=== PATIENT | female | born 1960 | race Caucasian/White ===

== ENCOUNTER → 2017-01-22 | Outpatient (REF) | payer BC ==
[2017-01-22 13:23] LABS: MEAN CORPUSCULAR HGB CONC 33.3 g/dl (32.0-36.5); RED CELL DISTRIBUTION WIDTH 11.8 % (11.5-14.5); WHITE BLOOD COUNT 5.6 K/mm3 (4.0-10.0)
[2017-01-22 14:14] LABS: ALBUMIN/GLOBULIN RATIO 1.18 (1.00-1.93); ALKALINE PHOSPHATASE 69 U/L (45-117); ALT/SGPT 21 U/L (12-78); ANION GAP 6 MEQ/L (8-16); AST/SGOT 14 U/L (15-37); BILIRUBIN,TOTAL 0.7 MG/DL (0.2-1.0); BLOOD UREA NITROGEN 17 MG/DL (7-18); CALCIUM LEVEL 9.2 MG/DL (8.5-10.1); CARBON DIOXIDE LEVEL 30 MEQ/L (21-32); CHLORIDE LEVEL 103 MEQ/L (98-107); CHOLESTEROL LEVEL 221 MG/DL (<200); CREATININE FOR GFR 0.82 MG/DL (0.55-1.02); FERRITIN 47 NG/ML (8-252); FREE T4 1.04 NG/DL (0.76-1.46); GLOMERULAR FILTRATION RATE > 60.0 (>51); GLUCOSE, FASTING 89 MG/DL (70-105); POTASSIUM SERUM 4.1 MEQ/L (3.5-5.1); SODIUM LEVEL 139 MEQ/L (136-145); TOTAL PROTEIN 7.4 GM/DL (6.4-8.2); TRIGLYCERIDES LEVEL 51 MG/DL (<150)
[2017-01-24 00:07] LABS: Lyme Disease IgG/IgM Antibodie <0.91 ISR (0.00-0.90); Lyme Disease IgM Ab Quantitati <0.80 index (0.00-0.79)
== END ==
LOC: M SFHCCLAY 09:42
PROVIDERS: ATTEND Family Medicine
DX: D50.9 Iron deficiency anemia, unspecified (principal); Z00.00 Encounter for general adult medical examination without abnormal findings; R53.83 Other fatigue

== ENCOUNTER → 2017-11-08 | Outpatient (CLI) | payer BC | LOC: M WUC 15:22 | DX: R06.02 Shortness of breath (principal); R91.8 Other nonspecific abnormal finding of lung field | CPT/HCPCS: 71046 ==

== ENCOUNTER → 2017-11-18 | Outpatient (CLI) | payer BC ==
[~2017-11-18] MED LIST: ISOVUE-370 76% 100ML VIAL (Q9967) As Ordered
== END ==
LOC: M RAD 15:54
DX: R06.02 Shortness of breath (principal)
CPT/HCPCS: Q9967

== ENCOUNTER → 2019-05-23 | Outpatient (CLI) | payer BC ==
--- NOTE | 2019-05-25 09:48 | SLEEPHOME ---
DATE OF STUDY: 05/23/2019 ORDERED BY: Michelle Nicole Diagnostic home sleep testing was performed due to concern for the obstructive sleep apnea syndrome in this patient with a history of snoring. For testing, a nocturnal T3 respiratory monitoring device was used. Continuous record was made of pulse, oxygen saturation, airflow, chest and abdominal strain and body position. 9 hours and 59 minutes of data were reviewed. There were 7 hours and 14 minutes marked as time in bed. During the interval marked time in bed, there were 76 respiratory events identified of 10 seconds in duration or greater for a respiratory event index of 10.5. The events were primarily obstructive hypopneas. Baseline pulse rate 76, pulse rate ranged 65-94. Baseline saturation 92%, saturations fell to 86%. Testing was performed in both the supine and nonsupine positions. IMPRESSION: Abnormal home sleep testing with repetitive respiratory events and oxygen desaturations to 86% with a respiratory event index of 10.5 is consistent with the obstructive sleep apnea syndrome. RECOMMENDATION: The patient should be encouraged to undergo formal sleep evaluation.
== END ==
LOC: M SLEEP HO 11:38
PROVIDERS: ATTEND Nurse Practitioner Family
DX: R06.83 Snoring (principal); G47.9 Sleep disorder, unspecified

== ENCOUNTER → 2019-08-08 | Outpatient (CLI) | payer BC | LOC: M LAB 08:24 | PROVIDERS: ATTEND Surgery | DX: R73.03 Prediabetes (principal) ==

== ENCOUNTER → 2020-01-10 | Outpatient (REF) | payer BC ==
[2020-01-10 18:00] LABS: BASO % 0.5 % (0.0-1.0); EOS # 0.3 10^3/uL (0.0-0.5); EOS % 4.5 % (0.0-3.0); HEMATOCRIT 37.8 % (36.0-47.0); HEMOGLOBIN 12.7 g/dl (12.0-15.5); LYMPH # 2.3 10^3/uL (1.5-5.0); LYMPH % 35.8 % (24.0-44.0); MEAN CORPUSCULAR HEMOGLOBIN 34.1 pg (27.0-33.0); MEAN CORPUSCULAR HGB CONC 33.6 g/dl (32.0-36.5); MEAN CORPUSCULAR VOLUME 101.6 fl (80.0-96.0); MONO # 0.5 10^3/uL (0.0-0.8); MONO % 7.1 % (0.0-5.0); NEUTROPHILS # 3.4 10^3/uL (1.5-8.5); NEUTROPHILS % 51.9 % (36.0-66.0); PLATELET COUNT, AUTOMATED 226 10^3/uL (150-450); RED BLOOD COUNT 3.72 10^6/uL (4.00-5.40); WHITE BLOOD COUNT 6.5 10^3/uL (4.0-10.0)
[2020-01-10 18:21] LABS: ALBUMIN 3.8 GM/DL (3.2-5.2); ALT/SGPT 28 U/L (12-78); BILIRUBIN,TOTAL 0.4 MG/DL (0.2-1.0); BLOOD UREA NITROGEN 14 MG/DL (7-18); CALCIUM LEVEL 9.3 MG/DL (8.5-10.1); CARBON DIOXIDE LEVEL 30 MEQ/L (21-32); CHLORIDE LEVEL 104 MEQ/L (98-107); CREATININE FOR GFR 0.85 MG/DL (0.55-1.30); GLOMERULAR FILTRATION RATE > 60.0 (>51); GLUCOSE, FASTING 91 MG/DL (70-100); MAGNESIUM LEVEL 2.1 MG/DL (1.8-2.4); PHOSPHORUS LEVEL 3.4 MG/DL (2.5-4.9); POTASSIUM SERUM 4.2 MEQ/L (3.5-5.1); RHEUMATOID FACTOR QUANT < 10.0 IU/ML (<15.0); SODIUM LEVEL 138 MEQ/L (136-145)
[2020-01-10 18:28] LABS: APPEARANCE, URINE CLEAR (CLEAR); BACTERIA, URINE AUTO 2+ (NEGATIVE); BILIRUBIN, URINE AUTO NEGATIVE (NEGATIVE); BLOOD, URINE BLOOD 1+ (NEGATIVE); COLOR, URINE YELLOW (YELLOW); GLUCOSE, URINE (UA) AUTO NEGATIVE (NEGATIVE); KETONE, URINE AUTO NEGATIVE (NEGATIVE); LEUKOCYTE ESTERASE, URINE AUTO NEGATIVE (NEGATIVE); MUCUS, URINE SMALL (NEGATIVE); NITRITE, URINE AUTO NEGATIVE (NEGATIVE); PROTEIN, URINE AUTO NEGATIVE (NEGATIVE); RBC, URINE AUTO 1 /HPF (0-3); SPECIFIC GRAVITY URINE AUTO 1.011 (1.002-1.035); SQUAMOUS EPITHELIAL CELL UR AU 1 /HPF (0-6); UROBILINOGEN, URINE AUTO 0.2 mg/dL (0.0-2.0); WBC, URINE AUTO 0 /HPF (0-3)
[2020-01-10 18:31] LABS: ERYTHROCYTE SEDIMENTATION RATE 18 mm/hr (0-30)
[2020-01-12 14:08] LABS: ANTINUCLEAR ANTIBODIES DIRECT Negative (Negative)
== END ==
LOC: M LABDRAWC 16:41
PROVIDERS: ATTEND Internal Medicine
DX: R10.9 Unspecified abdominal pain (principal)

== ENCOUNTER → 2020-01-26 | Outpatient (REF) | payer BC ==
[2020-01-28 18:07] LABS: Lyme Disease IgG/IgM Antibodie <0.91 ISR (0.00-0.90); Lyme Disease IgM Ab Quantitati <0.80 index (0.00-0.79)
== END ==
LOC: M LABDRAWC 15:49
PROVIDERS: ATTEND Internal Medicine
DX: M79.10 Myalgia, unspecified site (principal)

== ENCOUNTER 2021-01-25 17:10 | Emergency (ER) | payer BC ==
[~2021-01-25] VITALS: Ht 162.6 cm; Wt 102.2 kg
[2021-01-25] MEDS ORDERED: B-12100T2 PO (17:21)
[2021-01-25] MEDS ORDERED: VITMTA PO (17:21)
[2021-01-25] MEDS ORDERED: LOVE1INJ SC (17:21)
[2021-01-25] MEDS ORDERED: OMEP40CA4 PO (17:21)
--- NOTE | 2021-01-25 18:22 | REP ---
INDICATION: DYSPNEA/COUGH COMPARISON: 11/08/2017 TECHNIQUE: Portable AP view of the chest FINDINGS: Evaluation is significantly limited by underpenetration and portable technique which accentuate the pulmonary vasculature and interstitial markings. The mediastinum and cardiac silhouette are stable and within normal limits for portable technique. The lung carcamo without obvious focal consolidation, effusion, or pneumothorax. Skeletal structures intact. IMPRESSION: Limited portable examination. No obvious focal consolidation or effusion. <Electronically signed by Dashawn Stout > 01/25/21 [id number]
[2021-01-25 18:41] LABS: BASO % 0.2 % (0.0-1.0); EOS % 0.2 % (0.0-3.0); HEMATOCRIT 37.3 % (36.0-47.0); HEMOGLOBIN 12.6 g/dl (12.0-15.5); LYMPH # 1.2 10^3/uL (1.5-5.0); LYMPH % 23.9 % (24.0-44.0); MEAN CORPUSCULAR HEMOGLOBIN 33.1 pg (27.0-33.0); MEAN CORPUSCULAR HGB CONC 33.8 g/dl (32.0-36.5); MEAN CORPUSCULAR VOLUME 97.9 fl (80.0-96.0); MONO # 0.6 10^3/uL (0.0-0.8); MONO % 12.1 % (2.0-8.0); NEUTROPHILS # 3.2 10^3/uL (1.5-8.5); PLATELET COUNT, AUTOMATED 191 10^3/uL (150-450); RED BLOOD COUNT 3.81 10^6/uL (4.00-5.40); WHITE BLOOD COUNT 5.1 10^3/uL (4.0-10.0)
[2021-01-25 19:07] LABS: ALBUMIN 3.2 GM/DL (3.2-5.2); ALT/SGPT 47 U/L (12-78); BILIRUBIN,DIRECT 0.2 MG/DL (0.0-0.2); BILIRUBIN,TOTAL 0.4 MG/DL (0.2-1.0); BLOOD UREA NITROGEN 14 MG/DL (7-18); CALCIUM LEVEL 8.8 MG/DL (8.5-10.1); CARBON DIOXIDE LEVEL 23 MEQ/L (21-32); CHLORIDE LEVEL 98 MEQ/L (98-107); CK-MB VALUE MASS < 1.0 NG/ML (<3.6); CPK CREATINE PHOSPHOKINASE 39 U/L (26-192); CREATININE FOR GFR 0.85 MG/DL (0.55-1.30); GLOMERULAR FILTRATION RATE > 60.0 (>51); GLUCOSE, FASTING 85 MG/DL (70-100); MB/CK RELATIVE INDEX 2.56 (< OR =4); NT-PRO BNP 51 PG/ML (<125); POTASSIUM SERUM 3.9 MEQ/L (3.5-5.1); SODIUM LEVEL 133 MEQ/L (136-145); TOTAL PROTEIN 6.9 GM/DL (6.4-8.2); TROPONIN I < 0.02 NG/ML (< 0.10)
[2021-01-25 19:24] LABS: RSV AMPLIFICATION NEGATIVE (NEGATIVE)
[2021-01-25] MEDS ORDERED: ISOVUE-370 76% 100ML VIAL As Ordered ONE (19:37)
--- NOTE | 2021-01-25 20:46 | REPVR ---
PROCEDURE INFORMATION: Exam: CTA Chest With Contrast Exam date and time: 01/25/2021 8:03 PM Age: 60 years old Clinical indication: Cough; Additional info: Post op gastric bypass, SOB, cough TECHNIQUE: Imaging protocol: Computed tomographic angiography of the chest with contrast. 3D rendering (Not supervised by radiologist): MIP and/or 3D reconstructed images were created by the technologist. Radiation optimization: All CT scans at this facility use at least one of these dose optimization techniques: automated exposure control; mA and/or kV adjustment per patient size (includes targeted exams where dose is matched to clinical indication); or iterative reconstruction. Contrast material: ISOVUE 370; Contrast volume: 75 ml; Contrast route: INTRAVENOUS (IV); COMPARISON: CT Chest with contrast 11/18/2017 4:12 PM FINDINGS: Pulmonary arteries: There are no pulmonary emboli. Aorta: There is no aortic dissection or aneurysm. Lungs: Multiple bilateral peripheral ground-glass and semi solid parenchymal infiltrates consistent with multifocal pneumonitis. Pleural spaces: Unremarkable. No pneumothorax. No pleural effusion. Heart: Unremarkable. No cardiomegaly. No pericardial effusion. Lymph nodes: Unremarkable. No enlarged lymph nodes. Bones/joints: The spine demonstrates mild degenerative changes. Soft tissues: Bilateral breast implants. IMPRESSION: 1. Multiple bilateral peripheral ground-glass and semi solid parenchymal infiltrates consistent with multifocal pneumonitis. 2. There are no pulmonary emboli. 3. There is no aortic dissection or aneurysm. Electronically signed by: Misael Cordon On 01/25/2021 20:45:36 PM
[2021-01-25 21:13] LABS: INR 0.99; PROTHROMBIN TIME 13.3 SECONDS (12.5-14.3)
[2021-01-25 21:14] LABS: PARTIAL THROMBOPLASTIN TIME 36.7 SECONDS (24.2-38.5)
[2021-01-25 21:16] LABS: D-DIMER QUANT 1355.41 ng/ml (<500)
[2021-01-25 21:36] LABS: C REACTIVE PROTEIN QUANTITATIV 11.4 MG/DL (0.00-0.30)
[2021-01-25] MEDS ORDERED: ACETAMINOPHEN TAB 650MG DOSE (2X325MG) PO ONE (22:10)
[2021-01-26 00:17] VITALS: BP 139/75
[2021-01-26] MEDS ORDERED: DOXY-350 PO (03:11)
--- NOTE | 2021-01-26 20:44 | ECGEPIP ---
[facility] - ED Test Date: 2021-01-25 Pat Name: FAINA HU Department: Room: - Gender: Female Fish Cleaner: yanelis : 1960 Requested By: AURELIO Chang Order Number: [id number] Reading MD: Lizeth Hartman Measurements Intervals [place] Rate: 79 P: -7 CA: 126 QRS: 17 QRSD: 86 T: 19 QT: 372 QTc: 426 Interpretive Statements Normal sinus rhythm NSTTW abnormalities No prior Electronically Signed on 01-26-2021 20:43:58 EDT by Lizeth Hartman
== END 2021-01-26 00:38 | disposition home or self-care (01) ==
LOC: M ED 17:10
DX: R06.02 Shortness of breath (principal); R05 Cough; U07.1 COVID-19; I10 Essential (primary) hypertension; D50.9 Iron deficiency anemia, unspecified; K58.9 Irritable bowel syndrome, unspecified; G47.33 Obstructive sleep apnea (adult) (pediatric); I73.9 Peripheral vascular disease, unspecified; Z79.899 Other long term (current) drug therapy
CPT/HCPCS: 36415; 71045; 71275; 80048; 80076; 82550; 82553; 82728; 83605; 83615; 83880; 84484; 85025; 85379; 85610; 85730; 86140; 87040; 87631; 93005; 93041; 94760; 99285; Q9967

== ENCOUNTER 2021-01-25 22:47 | Outpatient (CLI) | payer BC ==
[~2021-01-25] VITALS: Ht 162.6 cm; Wt 101.5 kg
[~2021-01-25 22:47] MED LIST changes: +B-12100T2 PO; -ISOVUE-370 76% 100ML VIAL (Q9967) As Ordered; +LOVE1INJ SC; +OMEP40CA4 PO; +VITMTA PO
[2021-01-25] MEDS ORDERED: EPINEPHrine INJ 1 MG/ML 1ML AMP IM PRN (23:55)
[2021-01-25] MEDS ORDERED: NS 1,000 ML IV SCH (23:55)
[2021-01-25] MEDS ORDERED: methylPREDNISolone 125MG 2ML VIAL IV PRN (23:55)
[2021-01-25] MEDS ORDERED: ALBUTEROL 90 MCG/ACT 8GM HFA INHALER INH PRN (23:55)
[2021-01-25] MEDS ORDERED: ALBUTEROL SULFATE 2.5 MG/0.5 ML INH NEB SOLN INH PRN (23:55)
[2021-01-25] MEDS ORDERED: diphenhydrAMINE 50MG/ML VIAL (J1200) IV PRN (23:55)
--- NOTE | 2021-01-25 23:56 | CR.PDOC ---
General Date of Consultation: Jan 25, 2021 Consultation REASON FOR CONSULTATION/CHIEF COMPLAINT: Fevers HISTORY OF PRESENT ILLNESS: 52-year-old female with history of gastric bypass performed one week ago, partial hysterectomy, obesity, presented to the ER with a one-day history of malaise and fevers with shortness of breath. Patient tested positive in the ER for covid-19. On presentation vitals T 99.0, pulse 74. History 18, blood pressure 120/60, saturating 97% on room air. Patient is ambulating in the ER, saturating at 94%. Patient denies any chest pain, palpitations, headache, seizures, but is endorsing mild shortness of breath and fevers at home. Chest x-ray in the ER showing no obvious focal consolidation or effusion. CT showing findings suggestive of bilateral multifocal pneumonitis. Patient was offered monoclonal antibody fusion to which she agreed. Risks were explained including anaphylaxis. Consent was obtained. ALLERGIES: Please see below. HOME MEDICATIONS: Please see below. PAST MEDICAL HISTORY: Obesity PAST SURGICAL HISTORY: Gastric bypass Partial hysterectomy FAMILY HISTORY: Family history reviewed, no relevant findings SOCIAL HISTORY: Patient denies smoking Patient denies etoh use Patient denies illicit drug use REVIEW OF SYSTEMS: 10 point review of systems was conducted, relevant findings are noted in the HPI PHYSICAL EXAMINATION: VITAL SIGNS: please see below General: NAD, comfortable HEENT: PERRLA, EOMI, sclerae clear Neck: supple, normal ROM, no JVD Respiratory: Mild crackles at bilateral lung bases. Good inspiratory effort. No wheeze, no rales CVS: RRR, normal S1, S2, no murmurs Abdo: soft, no masses, no hepatosplenomegaly, BS+, no rebound tenderness Extremities: no edema, pulses 2+ MSK: no joint deformities, normal ROM Neuro: no focal neuro deficits, moving all 4 extremities, CN2-12 intact. Strength 5/5 in all 4 extremities. No nystagmus. Psych: calm, cooperative, AAO x 3 LABORATORY DATA: Please see below. ASSESSMENT/PLAN: #COVID-19 infection - patient is afebrile in ER, saturating 97% on RA, 94% on ambulation - CT showing fidnings c/w multifocal pneumonitis - given BMI> 35, meets criteria for MAB - consent obtained for Mab infusion - will provide prescription for PO doxycycline 100 mg BID PO x 7 days Dispo: DC home after mab infusuion. Allergies Coded Allergies: No Known Allergies (Unverified , 01/25/21) Home Medications Scheduled Cyanocobalamin (Vitamin B-12) (Vitamin B-12) 100 Mcg Tablet, 100 MCG PO DAILY for 30 Days, #30 (Reported) Multivitamins (Thera M Plus Tablet) 1 Each Tablet, 1 TAB PO QAM for 30 Days, #30 (Reported) Omeprazole (Omeprazole) 40 Mg Capsule.dr, 40 MG PO DAILY for 30 Days, #30 (Reported) Miscellaneous Medications Enoxaparin Sodium (Lovenox) 40 Mg/0.4 Ml Syringe, 40 MG SC, (Reported) SHERRILL PIMENTEL MD Jan 25, 2021 23:56
[2021-01-26 00:35] VITALS: BP 116/64
[2021-01-26] MEDS ORDERED: [UNRECOGNIZED DRUG - OTHER] IV ONE (01:00)
[2021-01-26 01:26] VITALS: BP 111/66
[2021-01-26 02:30] VITALS: BP 120/60
[2021-01-26] MEDS ORDERED: DOXY-350 PO (03:11)
[2021-01-26 03:30] VITALS: BP 112/56
== END 2021-01-26 03:45 | disposition home or self-care (01) ==
LOC: M OPCLIICU 22:47 → M ICU 01-26 00:35 → M OPCLIICU 01-26 03:45
PROVIDERS: ATTEND Family Medicine
DX: U07.1 COVID-19 (principal)

== ENCOUNTER → 2021-01-28 | Outpatient (REF) | payer BC ==
[~2021-01-28] MED LIST changes: +DOXY-350 PO
== END ==
LOC: M SFHCLERA 14:07
PROVIDERS: ATTEND Nurse Practitioner Family
DX: E87.1 Hypo-osmolality and hyponatremia (principal); Z53.8 Procedure and treatment not carried out for other reasons

== ENCOUNTER → 2021-03-29 | Outpatient (REF) | payer BC ==
[2021-03-29 16:39] LABS: ESTRADIOL 37.7 PG/ML; FOLLICLE STIMULATING HORMONE 65.8 mIU/mL; PROGESTERONE 5.15 NG/ML; TOTAL 25(OH) VITAMIN D 53.9 NG/ML (30.0-100.0)
[2021-04-01 17:09] LABS: TESTOSTERONE FREE (DIRECT) 3.9 pg/mL (0.0-4.2)
== END ==
LOC: M LABDRAWC 15:36
PROVIDERS: ATTEND Family Medicine
DX: N95.9 Unspecified menopausal and perimenopausal disorder (principal)

== ENCOUNTER 2021-06-24 10:25 | Emergency (ER) | payer BC ==
[~2021-06-24] VITALS: Ht 162.6 cm; Wt 82.8 kg
[2021-06-24 10:27] VITALS: BP 121/66
--- OUTSIDE RECORDS SUMMARY | 2021-06-24 10:37 | CCD ---
Author Author [facility] Organization [facility] Address Unknown Phone Unavailable Care Team Providers Care Cell Coverer Name Role Phone Torres, Alisa CABLE CUTTER AND SWAGER Unavailable Unavailable Torres, Alisa CABLE CUTTER AND SWAGER Unavailable Unavailable Torres, Alisa CABLE CUTTER AND SWAGER Unavailable Unavailable Torres, Alisa CABLE CUTTER AND SWAGER Unavailable Unavailable Torres, Alisa CABLE CUTTER AND SWAGER Unavailable Unavailable Torres, Alisa CABLE CUTTER AND SWAGER Unavailable Unavailable Torres, Alisa CABLE CUTTER AND SWAGER Unavailable Unavailable Torres, Alisa CABLE CUTTER AND SWAGER Unavailable Unavailable Torres, Alisa CABLE CUTTER AND SWAGER Unavailable Unavailable Torres, Alisa CABLE CUTTER AND SWAGER Unavailable Unavailable Torres, Alisa CABLE CUTTER AND SWAGER Unavailable Unavailable Torres, Alisa CABLE CUTTER AND SWAGER Unavailable Unavailable Torres, Alisa CABLE CUTTER AND SWAGER Unavailable Unavailable Kim Medina PA Unavailable Unavailable Kim Medina Unavailable Unavailable Kim Medina PA Unavailable Unavailable Kim Medina Unavailable Unavailable Kim Medina Unavailable Unavailable Kim Medina Unavailable Unavailable Kim Medina Unavailable Unavailable Kim Medina Unavailable Unavailable Kim Medina Unavailable Unavailable Kim Medina Unavailable Unavailable Felicitas OSBORN Unavailable Unavailable Obradovic, Vladan Unavailable Unavailable Obradovic, Vladan Unavailable Unavailable Obradovic, Vladan Unavailable Unavailable Obradovic, Vladan Unavailable Unavailable Obradovic, Vladan Unavailable Unavailable Obradovic, Vladan Unavailable Unavailable Obradovic, Vladan Unavailable Unavailable Obradovic, Vladan Unavailable Unavailable Obradovic, Vladan Unavailable Unavailable Obradovic, Vladan Unavailable Unavailable Obradovic, Vladan Unavailable Unavailable Obradovic, Vladan Unavailable Unavailable Obradovic, Vladan Unavailable Unavailable Obradovic, Vladan Unavailable Unavailable Obradovic, Vladan Unavailable Unavailable Obradovic, Vladan Unavailable Unavailable Obradovic, Vladan Unavailable Unavailable Obradovic, Vladan Unavailable Unavailable Obradovic, Vladan Unavailable Unavailable Obradovic, Vladan Unavailable Unavailable Obradovic, Vladan Unavailable Unavailable Obradovic, Vladan Unavailable Unavailable Obradovic, Vladan Unavailable Unavailable Obradovic, Vladan Unavailable Unavailable Obradovic, Vladan Unavailable Unavailable Obradovic, Vladan Unavailable Unavailable Obradovic, Vladan Unavailable Unavailable Obradovic, Vladan Unavailable Unavailable Obradovic, Vladan Unavailable Unavailable Obradovic, Vladan Unavailable Unavailable Obradovic, Vladan Unavailable Unavailable Obradovic, Vladan Unavailable Unavailable Obradovic, Vladan Unavailable Unavailable Obradovic, Vladan Unavailable Unavailable Obradovic, Vladan Unavailable Unavailable Obradovic, Vladan Unavailable Unavailable Obradovic, Vladan Unavailable Unavailable Obradovic, Vladan Unavailable Unavailable Obradovic, Vladan Unavailable Unavailable Obradovic, Vladan Unavailable Unavailable Obradovic, Vladan Unavailable Unavailable Obradovic, Vladan Unavailable Unavailable Obradovic, Vladan Unavailable Unavailable Obradovic, Vladan Unavailable Unavailable Obradovic, Vladan Unavailable Unavailable Obradovic, Vladan Unavailable Unavailable Obradovic, Vladan Unavailable Unavailable Obradovic, Vladan Unavailable Unavailable ASIA JUDD MD Unavailable Unavailable ASIA JUDD MD Unavailable Unavailable ASIA JUDD MD Unavailable Unavailable ASIA JUDD MD Unavailable Unavailable ASIA JUDD MD Unavailable Unavailable SCHASIA RECINOS MD Unavailable Unavailable SCHASIA RECINOS MD Unavailable Unavailable ASIA JUDD MD Unavailable Unavailable ASIA JUDD MD Unavailable Unavailable ASIA JUDD MD Unavailable Unavailable ASIA JUDD MD Unavailable Unavailable ASIA JUDD MD Unavailable Unavailable ASIA JUDD MD Unavailable Unavailable SCHASIA RECINOS MD Unavailable Unavailable SCHIANO, ASIA MD Unavailable Unavailable SCHIANO, ASIA MD Unavailable Unavailable SCHIANO, ASIA MD Unavailable Unavailable SCHIANO, ASIA MD Unavailable Unavailable SCHIANO, ASIA MD Unavailable Unavailable SCHIANO, ASIA MD Unavailable Unavailable SCHIANO, ASIA MD Unavailable Unavailable SCHIANO, ASIA MD Unavailable Unavailable SCHIANO, ASIA MD Unavailable Unavailable SCHIANO, ASIA MD Unavailable Unavailable SCHIANO, ASIA MD Unavailable Unavailable SCHIANO, ASIA MD Unavailable Unavailable SCHIANO, ASIA MD Unavailable Unavailable SCHIANO, ASIA MD Unavailable Unavailable SCHIANO, ASIA MD Unavailable Unavailable SCHIANO, ASIA MD Unavailable Unavailable SCHIANO, ASIA MD Unavailable Unavailable SCHIANO, ASIA MD Unavailable Unavailable SCHIANO, ASIA MD Unavailable Unavailable SCHIANO, ASIA MD Unavailable Unavailable SCHIANO, ASIA MD Unavailable Unavailable Commey, Enmanuel Unavailable Unavailable Commey, Enmanuel Unavailable Unavailable Commey, Enmanuel Unavailable Unavailable Commey, Enmanuel Unavailable Unavailable Commey, Enmanuel Unavailable Unavailable Commey, Enmanuel Unavailable Unavailable Commey, Enmanuel Unavailable Unavailable Commey, Enmanuel Unavailable Unavailable Commey, Enmanuel Unavailable Unavailable Commey, Enmanuel Unavailable Unavailable Commey, Enmanuel Unavailable Unavailable Commey, Enmanuel Unavailable Unavailable Commey, Enmanuel Unavailable Unavailable Commey, Enmanuel Unavailable Unavailable Commey, Enmanuel Unavailable Unavailable Commey, Enmanuel Unavailable Unavailable Commey, Enmanuel Unavailable Unavailable Commey, Enmanuel Unavailable Unavailable Commey, Enmanuel Unavailable Unavailable Commey, Enmanuel Unavailable Unavailable Commey, Enmanuel Unavailable Unavailable Commey, Enmanuel Unavailable Unavailable Commey, Enmanuel Unavailable Unavailable Commey, Enmanuel Unavailable Unavailable Commey, Enmanuel Unavailable Unavailable Commey, Enmanuel Unavailable Unavailable Commey, Enmanuel Unavailable Unavailable Commey, Enmanuel Unavailable Unavailable Commey, Enmanuel Unavailable Unavailable Commey, Enmanuel Unavailable Unavailable Commey, Enmanuel Unavailable Unavailable Re-disclosure Warning The records that you are about to access may contain information from federally-assisted alcohol or drug abuse programs. If such information is present, then the following federally mandated warning applies: This information has been disclosed to you from records protected by federal confidentiality rules (42 CFR part 2). The federal rules prohibit you from making any further disclosure of this information unless further disclosure is expressly permitted by the written consent of the person to whom it pertains or as otherwise permitted by 42 CFR part 2. A general authorization for the release of medical or other information is NOT sufficient for this purpose. The Federal rules restrict any use of the information to criminally investigate or prosecute any alcohol or drug abuse patient.The records that you are about to access may contain highly sensitive health information, the redisclosure of which is protected by Article 27-F of the [place] Public Health law. If you continue you may have access to information: Regarding HIV / AIDS; Provided by facilities licensed or operated by the [place] Office of Mental Health; or Provided by the [place] Office for People With Developmental Disabilities. If such information is present, then the following [place] mandated warning applies: This information has been disclosed to you from confidential records which are protected by state law. State law prohibits you from making any further disclosure of this information without the specific written consent of the person to whom it pertains, or as otherwise permitted by law. Any unauthorized further disclosure in violation of state law may result in a fine or fdc sentence or both. A general authorization for the release of medical or other information is NOT sufficient authorization for further disc losure. Allergies and Adverse Reactions Type Description Substance Reaction Status Data Source(s ) Propensity to adverse reactions NO KNOWN ALLERGIES NO KNOWN ALLERGIES [facility] Drug Allergy NKDA NKDA [facility] ([facility]) Family History Family Member Name Family Member Gender Family Member Status Date o f Status Description Data Source(s) Unknown Unknown Problem [facility] ([facility]) Encounters Encounter Providers Location Date Indications Data Source(s ) Outpatient Referrer: ASIA JUDD MD 05/29/2021 01:25:5 5 PM EDT [facility] TeleMedicine Phone E/M by Phys 11-20 Min [address] [place] [address] 02/01/2021 12:00:00 AM EDT eCW1 (Formerly [facility]) TeleMedicine Phone E/M by Phys 11-20 Min [address] [place] [address] 01/29/2021 12:00:00 AM EDT eCW1 (Formerly [facility]) Outpatient Attender: Alisa melgoza 01/25/2021 04:10:00 PM EDT [facility] ([facility]) Outpatient Admitter: Enmanuel Riggins MOB-MOB.PAT 2020 07:57:04 AM EDT - 01/12/2021 07:57:06 AM EDT [facility] Outpatient Attender: Enmanuel RigginsAdmitter: Enmanuel Lopez jany MOB-MOB.PAT 01/08/2021 02:20:06 PM EDT - 01/08/2021 03:30:38 PM EDT [facility] Inpatient Attender: Enmanule RigginsAdmitter: Enmanuel Lopez jany [id number] 12/27/2020 02:55:38 PM EDT - 01/18/2021 03:24:00 PM EDT [facility] Patient discharged. Outpatient Attender: Jelena rosales 07/20/2020 10:15:00 AM EST [facility] ([facility]) Outpatient Attender: OMEGA OSBORN [id number] 12:00:00 AM EDT - 05/17/2020 12:00:00 AM EDT [facility] Outpatient Referrer: Doron WITT-MOB.PAT 04/27 11:04:03 AM EDT - 04/27/2020 11:04:06 AM EDT [facility] Outpatient Attender: Doron MabryAdmitter: Doron hanson [email or web address] 04/23/2020 01:58:50 PM EDT - 05/01/2020 09:15:00 AM EDT [facility] Patient discharged. Immunizations Vaccine Date Status Description Data Source(s) INFLUENZA VIRUS VACCINE QUADRIVALENT 2019- (6 MOS AN D UP) 07/04/2020 12:00:00 AM EST completed [facility] Medications Medication Brand Name Start Date Product Form Dose Route Admi nistrative Instructions Pharmacy Instructions Status Indications Reaction Description Data Source(s) Ondansetron 4 MG Disintegrating Oral Tablet ONDANSETRON 04/11/2021 12:00:00 AM EDT tablet,disintegrating 30 DISSOLVE O NE TABLET ON TONGUE EVERY 8 HOURS NEEDED NAUSEA DISSOLVE ONE TABLET ON TONGUE EVERY 8 HOURS NEEDED NAUSEA SOLD: 04/14/2021 [facility] NITROFURANTOIN, MACROCRYSTALS 25 MG / Ni trofurantoin, Monohydrate 75 MG Oral Capsule 100 mg NITROFURANTOIN MONOHYD/M-CRYST 04/06/2021 12:00:00 AM EDT ca psule 14 TAKE ONE CAPSULE BY MOUTH EVERY 12 HOURS FOR 7 DAYS TAKE ONE CAPSULE BY MOUTH EVERY 12 HOURS FOR 7 DAYS SOLD: 04/06/2021 [facility] Cephalexin 500 MG Oral Capsule CEPHALEXIN 03/17/2021 12:00:00 AM EDT capsule 14 TAKE ONE CAPSULE BY MOUTH TWICE A DAY FOR 7 DAYS TAKE ONE CAPSULE BY MOUTH TWICE A DAY FOR 7 DAYS SOLD: 03/17/2021 [facility] Polymyxin B 72417 UNT/ML / Trimethoprim 1 MG/ML Ophthalmic Solution 10,000 unit- 1 mg/mL POLYMYXIN B SULF/TRIMETHOPRIM 03/06/2021 12:00:00 AM EDT drops 1 0 INSTILL ONE TO TWO DROPS INTO THE AFFECTED EYS FOUR TIMES A DAY FOR 7 DAYS INSTILL ONE TO TWO DROPS INTO THE AFFECTED EYS FOUR TIMES A DAY FOR 7 DAYS SOLD: 03/07/2021 [email or web address] 100 mg 01/26/2021 12:00:00 AM EDT capsule 14 TAKE ONE CAPSULE BY MOUTH TWICE A DAY FOR 7 DAYS TAKE ONE CAPSULE BY MOUTH TWICE A DAY FOR 7 DAYS SOLD: 01/28/2021 [email or web address] 24 HR metoprolol succinate 50 MG Extende d Release Oral Tablet metoprolol succinate (TOPROL-XL) 24 hr tablet 50 mg metoprolol succinate (TOPROL-XL) 24 hr tablet 50 mg 01/18/2021 09:00:00 AM EDT 50 mg Oral activ e 50 mg, Oral, Daily, First dose on Thu01/18/21 at 0900 [facility] Medication administered onsite 24 HR metoprolol succinate 25 MG Extende d Release Oral Tablet metoprolol succinate (TOPROL-XL) 24 hr tablet 25 mg metoprolol succinate (TOPROL-XL) 24 hr tablet 25 mg 01/18/2021 09:00:00 AM EDT 25 mg Oral activ e 25 mg, Oral, Daily, First dose on Thu01/18/21 at 0900 [facility] Medication administered onsite lactated ringers bolus 1,000 mL [id number] 01/18/2021 06:00:00 AM EDT 1000 mL Intravenous completed 1,000 mL , Intravenous, Administer over 2 Hours, Once, On Thu01/18/21 at 0600, For 1 dose, Post-op [facility] Medication administered onsite ondansetron (ZOFRAN-ODT) disintegrating tablet 8 mg 01/18/2021 06:00:00 AM EDT 8 mg Oral active [Order 1 Start] Name: ondansetron (ZOFRAN-ODT) disintegrating tablet 8 mg Signed Summary: 8 mg, Oral, Every 6 hours PRN, nausea, Starting on Thu01/18/21 at 0600, Post-op [Order 1 End] [Order 2 Start] Name: ondansetron (ZOFRAN) injection 8 mg Signed Summary: 8 mg, Intravenous, Every 6 hours PRN, nausea, severe nausea, Starting on Thu01/18/21 at 0600, Post- op [Order 2 End] [facility] Medication administered onsite 80 mg 01/18/2021 12:00:00 AM EDT tablet,chewable 30 CHEW ONE TABLET BY MOUTH EVERY 6 HOURS NEEDED FOR FLATULENCE CHEW ONE TABLET BY MOUTH EVERY 6 HOURS A S NEEDED FOR FLATULENCE SOLD: 01/22/2021 [facility] Acetaminophen 325 MG Oral Tablet acetaminophen (TYLENO L) 325 MG tablet 650 mg acetaminophen (TYLENOL) 325 MG tablet 650 mg 01/18/2021 12:00:00 AM EDT 650 mg Oral active 650 mg, Or al, Every 4 hours PRN, mild pain (1-3), for mild pain, headache, or temperature > 101, Starting on Thu01/18/21 at 0000, Post- op
To begin after routine doses of tylenol.
[facility] Medication administered onsite Ondansetron 4 MG Disintegrating Oral Tab let ondansetron (ZOFRAN-ODT) 4 MG disintegrating tablet ondansetron (ZOFRAN-ODT) 4 MG disintegrating tablet 01/18/2021 12:00:00 AM EDT 4 mg Oral active Take 1 tablet (4 mg total) by mouth daily [facility] Vitamin B 12 0.5 MG Oral Tablet vitamin B-12 (CYANOCOB ALAMIN) 500 MCG tablet vitamin B-12 (CYANOCOBALAMIN) 500 MCG tablet 01/18/2021 12:00:00 AM EDT 1000 ug Oral aborted Take 2 tablets (1,000 mc g total) by mouth daily [facility] Ascorbic Acid 60 MG / Beta Carotene 5000 UNT / Copper Sulfate 40 MG / dl-alpha tocopheryl acetate 30 UNT / Sodium Selenite 0.04 MG / Zinc Oxide 40 MG Oral Tablet Multiple Vitamins-Iron (multivitamin with iron) TABS Multiple Vitamins- Iron (multivitamin with iron) TABS 01/18/2021 12:00:00 AM EDT 2 {tbl} Oral aborted Take 2 tablets by mouth jory y [facility] Simethicone 80 MG Chewable Tablet simethicone (MYLICON ) 80 MG chewable tablet simethicone (MYLICON) 80 MG chewable tablet 01/18/2021 12:00:00 AM EDT 80 mg Oral active Chew 1 tablet (80 mg total) every 6 (six) hours as needed for flatulence [facility] 20 mg 01/18/2021 12:00:00 AM EDT capsule,delayed release (DR/EC) 30 TAKE TWO CAPSULES BY MOUTH ONCE DAILY TAKE TWO CAPSULES BY MOUTH ONCE DAILY SOLD: 01/22/2021 [facility] Acetaminophen 325 MG Oral Tablet acetaminophen (TYLENO L) 325 MG tablet acetaminophen (TYLENOL) 325 MG tablet 01/18/2021 12:00:00 AM EDT 65 0 mg Oral active Take 2 tablets (650 mg total) by mouth every 6 (six) hours as needed for pain [facility] 0.4 ML Enoxaparin sodium 100 MG/ML Prefi lled Syringe enoxaparin (LOVENOX) 40 MG/0.4ML SOLN enoxaparin (LOVENOX) 40 MG/0.4ML SOLN 01/18/2021 12:00:00 AM EDT 40 mg Subcutaneous aborted Inject 0.4 mL (40 mg total) under the skin daily for 10 days [facility] 500 mcg 01/18/2021 12:00:00 AM EDT tablet 30 TAKE TWO TABLETS BY MOUTH EVERY DAY TAKE TWO TABLETS BY MOUTH EVERY DAY SOLD: 01/22/2021 [facility] Omeprazole 20 MG Delayed Release Oral Ca psule omeprazole (PriLOSEC) 20 MG capsule omeprazole (PriLOSEC) 20 MG capsule 01/18/2021 12:00:00 AM EDT 40 mg Oral active Take 2 capsules (40 mg total) by mouth once daily [facility] 0.4 ML Enoxaparin sodium 100 MG/ML Prefi lled Syringe enoxaparin (LOVENOX) 40 MG/0.4ML SOLN enoxaparin (LOVENOX) 40 MG/0.4ML SOLN 01/18/2021 12:00:00 AM EDT 40 mg Subcutaneous active Inject 0.4 mL (40 mg total) under the skin daily for 10 days [facility] Vitamin B 12 0.5 MG Oral Tablet vitamin B-12 (CYANOCOB ALAMIN) 500 MCG tablet vitamin B-12 (CYANOCOBALAMIN) 500 MCG tablet 01/18/2021 12:00:00 AM EDT 1000 ug Oral active Take 2 tablets (1,000 mc g total) by mouth daily [facility] Ascorbic Acid 60 MG / Beta Carotene 5000 UNT / Copper Sulfate 40 MG / dl-alpha tocopheryl acetate 30 UNT / Sodium Selenite 0.04 MG / Zinc Oxide 40 MG Oral Tablet Multiple Vitamins-Iron (multivitamin with iron) TABS Multiple Vitamins- Iron (multivitamin with iron) TABS 01/18/2021 12:00:00 AM EDT 2 {tbl} Oral active Take 2 tablets by mouth jory drew [facility] heparin (porcine) injection 5,000 Units [id number] 01/18/20 11:00:00 PM EDT 5000 U Subcutaneous active 5,000 Units , Subcutaneous, Every 8 hours (relative), First dose on Kta 01/17/21 at 2300, Post-op
If platelet count is less than 100,000 or hematocrit is less than 25, or if there is a 5 point decrea se in hematocrit, do not give the dose and call physician/designee.
[facility] Medication administered onsite normal saline flush 0.9 % injection 3 mL [id number] 01/17/2021 10:00:00 PM EDT 3 mL Intravenous active 3 mL , Intravenous, QSHIFT, First dose on Kat 01/17/21 at 2200, Post-op
Convert to saline lock after discontinuing D5LR IV.
[facility] Medication administered onsite gabapentin 300 MG Oral Capsule gabapentin (NEURONTIN) capsule 300 mg gabapentin (NEURONTIN) capsule 300 mg 01/17/2021 09:00:00 PM EDT 300 mg Oral active 300 mg, Oral, 3 times daily, First dose on Kat 01/17/21 at 2100, Post-op [facility] Medication administered onsite Simethicone 80 MG Chewable Tablet simethicone (MYLICON ) chewable tablet 80 mg simethicone (MYLICON) chewable tablet 80 mg 01/17/2021 07:00:00 PM EDT 80 mg Oral active 80 mg, Oral, E very 4 hours (scheduled), First dose on Kat 01/17/21 at 1900, Post-op [facility] Medication administered onsite pantoprazole 40 MG Delayed Release Oral Tablet pantoprazole (PROTONIX) EC tablet 40 mg pantoprazole (PROTONIX) EC tablet 40 mg 01/17/2021 06:00:00 PM E DT 40 mg Oral active Stress Ulcer Prophylaxis 40 mg, Oral, Daily, Indications: Stress Ulcer Prophylaxis, First dose on Kat 01/17/21 at 1800 [facility] Stress Ulcer Prophylaxis Medication administered onsite Calcium Chloride 0.001 MEQ/ML / Glucose 50 MG/ML / Potassium Chloride 0.004 MEQ/ML / Sodium Chloride 0.103 MEQ/ML / Sodium Lactate 0.028 MEQ/ML Injectable Solution dextrose 5 % in lactated ringers infusion dextrose 5 % in lactated ringers infusion 01/17/2021 06:00:00 PM EDT 150 mL/h Intravenous active at 150 mL/hr, 150 mL/hr, Intravenous, Co ntinuous, Starting on Kat 01/17/21 at 1800, Post-op
Discontinue IV with adequate PO & convert to saline lock
[facility] Medication administered onsite Acetaminophen 500 MG Oral Tablet acetaminophen (TYLENO L) tablet 1,000 mg acetaminophen (TYLENOL) tablet 1,000 mg 01/17/2021 06:00:00 PM EDT 1000 mg Oral active 1,000 mg, Oral , Every 8 hours, First dose on Thu01/17/21 at 1800, For 48 hours, Post-op [facility] Medication administered onsite Ondansetron 4 MG Disintegrating Oral Tab let ondansetron (ZOFRAN-ODT) disintegrating tablet 8 mg ondansetron (ZOFRAN-ODT) disintegrating tablet 8 mg 01/17/2021 06:00:00 PM EDT 8 mg Oral active 8 mg, Oral, Every 6 hours (scheduled), First dose on Thu01/17/21 at 1800, For 24 hours, Post-op [facility] Medication administered onsite Insulin Lispro 100 UNT/ML Injectable Janeth ution insulin lispro (HumaLOG) injection 4-16 Units insulin lispro (HumaLOG) injection 4-16 Units 01/18/20 06:00:00 PM EDT U Subcutaneous active 4-1 6 Units, Subcutaneous, Q6HSS, First dose on Thu01/17/21 at 1800, Post-op
Blood Sugar Units of HumaLOG 145-170 4 units 171-220 6 units 221-270 8 units 271-320 10 units 321-370 12 units 371-420 14 units >420 16 units, Call MD
[facility] Medication administered onsite metoclopramide (REGLAN) injection 10 mg 01/17/2021 04:55:1 9 PM EDT 10 mg Intravenous active [Order 1 Star t] Name: metoclopramide (REGLAN) injection 10 mg Signed Summary: 10 mg, Intravenous, Every 6 hours PRN, nausea, not relieved by ondansetron, Starting on Thu01/17/21 at 1655, Post-op
Once in PACU then every 6 hours PRN for nausea
[Order 1 End] [Order 2 Start] Name: metoclopramide (REGLAN) tablet 10 mg Signed Summary: 10 mg, Oral, Every 6 hours PRN, nausea, not relieved by ondansetron, Starting on Kat 01/17/21 at 1655, Post- op
Once in PACU then every 6 hours PRN for nausea
[Order 2 End] [facility] Medication administered onsite Prochlorperazine 10 MG Oral Tablet prochlorperazine (C OMPAZINE) tablet 10 mg prochlorperazine (COMPAZINE) tablet 10 mg 01/17/2021 04:55:18 PM EDT 10 mg Oral active 10 mg, Oral, E very 6 hours PRN, nausea, not relieved by metoclopramide, Starting on Kat 01/17/21 at 1655, Post-op [facility] Medication administered onsite Oxycodone Hydrochloride 5 MG Oral Tablet oxyCODONE (ROXICODONE) immediate release tablet 5 mg oxyCODONE (ROXICODONE) immediate release tablet 5 mg 01/17/2021 04:55:18 PM EDT 5 mg Oral active 5 mg, Oral, Every 4 hours PRN, severe pain (7-10), Starting on Kat 01/17/21 at 1655, For 7 days, Post-op [facility] Medication administered onsite Promethazine Hydrochloride 25 MG Oral Ta blet promethazine (PHENERGAN) tablet 12.5 mg promethazine (PHENERGAN) tablet 12.5 mg 01/17/2021 04:55:18 PM E DT 12.5 mg Oral active 12.5 mg, O ral, Every 4 hours PRN, nausea, not relieved by prochlorperazine, Starting on Kat 01/17/21 at 1655, Post-op [facility] Medication administered onsite 0.4 ML Enoxaparin sodium 100 MG/ML Prefi lled Syringe enoxaparin (LOVENOX) syringe 40 mg enoxaparin (LOVENOX) syringe 40 mg 01/17/2021 04:55:17 PM EDT 40 mg Subcutaneous active 40 mg, Subcutaneous, Before Discharge, for prophylaxis, Starting on Kat 01/17/21 at 1655, For 1 dose, Post-op
At discharge. To be administered by patient or significant other.
[facility] Medication administered onsite enalaprilat (VASOTEC) injection 1.25 mg [id number] 01/18/20 04:55:17 PM EDT 1.25 mg Intravenous active 1.25 mg, Int ravenous, Every 6 hours PRN, for SBP > 140 mmHg and/or DBP > 90 mmHg, Starting on Kat 01/17/21 at 1655, Post- op
Mix in 50 mL NS, infuse over 30 minutes via infusion pump. For IVMB on NON-ICU units.
[facility] Medication administered onsite Clonidine Hydrochloride 0.1 MG Oral Tablet cloNIDine ( CATAPRES) tablet 0.1 mg cloNIDine (CATAPRES) tablet 0.1 mg 01/17/2021 04:55:16 PM EDT 0.1 mg Oral active 0.1 mg, Oral, Every 4 hours PRN, high blood pressure, for SBP > 140 mmHg and/or DBP > 90 mmHg, Starting on Kat 01/17/21 at 1655, Post-op [facility] Medication administered onsite fentaNYL Citrate (PF) (SUBLIMAZE) injection 25 mcg [id number] 01/17/2021 03:16:33 PM EDT 25 ug Intravenous aborted 25 mcg, Intravenous, Every 5 min PRN, moderate pain (4-6), moderate pain (4 to 6), Starting on Kat 01/17/21 at 1516, For 8 doses, PACU (only) [facility] Medication administered onsite Alprazolam 0.25 MG Oral Tablet ALPRAZolam (XANAX) tabl et 0.25 mg ALPRAZolam (XANAX) tablet 0.25 mg 01/17/2021 11:00:00 AM EDT 0.25 mg Oral completed 0.25 mg, Oral, call center specialist, On Kat 01/17/21 a t 1100, For 1 dose, Pre-op [facility] Medication administered onsite Prochlorperazine 10 MG Oral Tablet prochlorperazine (C OMPAZINE) tablet 10 mg prochlorperazine (COMPAZINE) tablet 10 mg 01/17/2021 11:00:00 AM EDT 10 mg Oral completed 10 mg, Oral, O n call, On Kat 01/17/21 at 1100, For 1 dose, Pre-op [facility] Medication administered onsite Tetrahydrocannabinol 2.5 MG Oral Capsule dronabinol (M ARINOL) capsule 5 mg dronabinol (MARINOL) capsule 5 mg 01/17/2021 11:00:00 AM EDT 5 mg Oral completed 5 mg, Oral, call center specialist, On Kat 01/17 at 1100, For 1 dose, Pre-op [facility] Medication administered onsite celecoxib 100 MG Oral Capsule celecoxib (CeleBREX) cap dayanara 200 mg celecoxib (CeleBREX) capsule 200 mg 01/17/2021 11:00:00 AM EDT 200 mg Oral completed 200 mg, Oral, call center specialist, On Kat at 1100, For 1 dose, Pre-op [facility] Medication administered onsite Dexamethasone 4 MG Oral Tablet dexamethasone (DECADRON ) tablet 4 mg dexamethasone (DECADRON) tablet 4 mg 01/17/2021 11:00:00 AM EDT 4 mg Oral completed 4 mg, Oral, call center specialist, On Kat 01/17 at 1100, For 1 dose, Pre-op [facility] Medication administered onsite gabapentin 600 MG Oral Tablet gabapentin (NEURONTIN) t ablet 600 mg gabapentin (NEURONTIN) tablet 600 mg 01/17/2021 11:00:00 AM EDT 600 mg Oral completed 600 mg, Oral, On marixa l, On Kat 01/17/21 at 1100, For 1 dose, Pre-op
Hold if age greater than 70 or chronic renal failure/insufficiency
[facility] Medication administered onsite heparin (porcine) injection 5,000 Units [id number] 01/18/20 11:00:00 AM EDT 5000 U Subcutaneous completed 5,000 Uni ts, Subcutaneous, call center specialist, On Kat 01/17/21 at 1100, For 1 dose, Pre-op
If platelet count is less than 100,000 or hematocrit is less than 25, or if there is a 5 point decrease in hematocrit, do not give the dose and call physician/designee.
[facility] Medication administered onsite Calcium Chloride 0.0014 MEQ/ML / Potassi um Chloride 0.004 MEQ/ML / Sodium Chloride 0.103 MEQ/ML / Sodium Lactate 0.028 MEQ/ML Injectable Solution lactated ringers infusion lactated ringers infusion 01/17/2021 11:00:00 AM EDT 100 mL/h Intravenous aborted at 100 m L/hr, 100 mL/hr, Intravenous, Continuous, Starting on Kat 01/17/21 at 1100, Pre-op
Please place IV on left side if able
[facility] Medication administered onsite Albuterol 0.83 MG/ML Inhalant Solution a lbuterol (PROVENTIL) nebulizer solution 2.5 mg albuterol (PROVENTIL) nebulizer solution 2.5 mg 2020 11:00:00 AM EDT 2.5 mg completed 2.5 mg , Nebulization, call center specialist, On Kat 01/17/21 at 1100, For 1 dose, Pre-op
To be started by pre-op unit
[facility] Medication administered onsite Acetaminophen 325 MG Oral Tablet acetaminophen (TYLENO L) 325 MG tablet 975 mg acetaminophen (TYLENOL) 325 MG tablet 975 mg 01/17/2021 11:00:00 AM EDT 975 mg Oral completed 975 mg, Or al, call center specialist, On Kat 01/17/21 at 1100, For 1 dose, Pre-op
"Maximum dose of acetaminophen is 4,000 mg from all sources in 24 hours."
[facility] Medication administered onsite Clonidine Hydrochloride 0.1 MG Oral Tablet cloNIDine ( CATAPRES) tablet 0.1 mg cloNIDine (CATAPRES) tablet 0.1 mg 01/17/2021 11:00:00 AM EDT 0.1 mg Oral completed 0.1 mg, Oral, call center specialist, On Kat at 1100, For 1 dose, Pre-op [facility] Medication administered onsite scopolamine (TRANSDERM-SCOP) 1.5 MG (Bariatric only) 1 patch [id number] 01/17/2021 10:37:11 AM EDT 1 {patch} Transdermal aborted 1 patch, Transdermal, Administer over 24 Hours, Every 24 hours (relative), First dose on Kat 01/17/21 at 1100, For 1 dose, Pre-op
Scopolamine patch applied behind ear. Hold for any of the followin+ yrs old, hx of glaucoma, hx of vertigo, dementia.
[facility] Medication administered onsite 50 mg 11/28/2020 12:00:00 AM EDT tablet extended release 24 hr 90 TAKE ONE TABLET BY MOUTH TWICE A DAY TAKE ONE TABLET BY MOUTH TWICE A DAY SOLD: 11/29/2020 [facility] 40 mg 11/05/2020 12:00:00 AM EDT capsule,delayed release (DR/EC) 30 TAKE ONE CAPSULE BY MOUTH EVERY DAY 30 MINUTES BEFORE MORNING MEAL FOR 3 MONTHS AFTER SURGERY TAKE ONE CAPSULE BY MOUTH EVERY DAY 30 M INUTES BEFORE MORNING MEAL FOR 3 MONTHS AFTER SURGERY SOLD: 01/08/2021 [facility] 40 mg 11/05/2020 12:00:00 AM EDT capsule,delayed release (DR/EC) 30 TAKE ONE CAPSULE BY MOUTH EVERY DAY 30 MINUTES BEFORE MORNING MEAL FOR 3 MONTHS AFTER SURGERY TAKE ONE CAPSULE BY MOUTH EVERY DAY 30 M INUTES BEFORE MORNING MEAL FOR 3 MONTHS AFTER SURGERY SOLD: 11/13/2020 [facility] 40 mg/0.4 mL 11/05/2020 12:00:00 AM EDT syringe 4 ADMINISTER 0.4ML UNDER THE SKIN DAILY FOR 10 DAYS AFTER SURGERY ADMINISTER 0.4ML UNDER THE SKIN DAILY FO R 10 DAYS AFTER SURGERY SOLD: 11/15/2020 [facility] Ondansetron 4 MG Disintegrating Oral Tablet ONDANSETRON 11/05/2020 12:00:00 AM EDT tablet,disintegrating 20 PLACE ONE TABLET BY MOUTH EVERY 8 [address] FOR NAUSEA PLACE ONE TABLET BY MOUTH EVERY 8 HOURS NEEDED FOR NAUSEA SOLD: 11/13/2020 [facility] 25 mg 10/03/2020 12:00:00 AM EST tablet extended release 24 hr 90 TAKE ONE TABLET BY MOUTH EVERY DAY TAKE ONE TABLET BY MOUTH EVERY DAY SOLD: 01/08/2021 [facility] 25 mg 10/03/2020 12:00:00 AM EST tablet extended release 24 hr 90 TAKE ONE TABLET BY MOUTH EVERY DAY TAKE ONE TABLET BY MOUTH EVERY DAY SOLD: 10/05/2020 [facility] 24 HR Loratadine 10 MG / Pseudoephedrine sulfate 240 MG Extended Release Oral Tablet 10-240 mg LORATADINE/PSEUDOEPHEDRINE 07/16/2020 12:00:00 AM EST tablet extended release 24 hr 90 TAKE ONE TABLET BY MOUTH EVERY DAY TAKE ONE TABLET BY MOUTH EVERY DAY SOLD: 01/22/2021 [facility] 10-240 mg 07/16/2020 12:00:00 AM EST tablet extended release 24 hr 90 TAKE ONE TABLET BY MOUTH EVERY DAY TAKE ONE TABLET BY MOUTH EVERY DAY SOLD: 07/20/2020 [facility] Ondansetron 4 MG Disintegrating Oral Tab let ondansetron (ZOFRAN-ODT) 4 MG disintegrating tablet ondansetron (ZOFRAN-ODT) 4 MG disintegrating tablet 4 mg Oral aborted Take 4 mg by mouth daily as needed for nausea [facility] Omeprazole 20 MG Delayed Release Oral Ca psule omeprazole (PriLOSEC) 20 MG capsule omeprazole (PriLOSEC) 20 MG capsule 20 mg Oral aborted Take 20 mg by mouth once daily [facility] Insurance Providers Payer name Policy type / Coverage type Policy ID Covered libertarian ID Covered libertarian's relationship to urias Policy Urias Plan Information [id number] BC EXC PLANS 1 [id number] [place]/[id number] [address] [address] JERAL UNAVAILABLE [id number] UNAVA ILABLE BC EXC PLANS 1 [id number] Self [id number] EXCELLUS C [id number] Spouse [id number] EXCELLUS BCBS [id number] Spo VYS EXCELLUS BCBS xxxxxxxxxxxx [id number] [place] P[place] 302/307 [id number] [id number] INSURANCE COVID-19 [id number] [id number] INSURANCE COVID-19 COVID Carloann C OVID SELF PAY 2 UNAVAILABLE 1 UNAVAILA BLE [place] PPO 302/307 [id number] Excellus [id number] BCBS/Excell[employer] Commercial [id number] Family Dependent [id number] [place] [id number] SPO VYS [id number] [place] [id number] SPO [id number] EXCELLUS BCBS B [id number] P VYS [id number] [place] P[place] 302/307 [id number] EXCELLUS BCBS B [id number] P YNS [id number] [place] PPO 302/307 [id number] BCBS/[place] Commercial [id number] Family Dependent [id number] [place] P[place] 302/307 [id number] SELF PAY UNAVAILABLE SP UNAVAILA BLE Problems, Conditions, and Diagnoses Code Display Name Description Problem Type Effective Dates Data Source(s) E66.01 Morbid (severe) obesity due to excess ca lories Morbid (severe) obesity due to excess ca Diagnosis 01/17/2021 09:56:00 AM EDT [facility] U07.1 COVID-19 COVID-19 Diagnosis 01/12/2021 07:57:04 AM ED T [facility] K21.9 Gastro-esophageal reflux disease without esophagitis Gastro-esophageal reflux disease without Diagnosis 05/01/2020 07:52:00 AM EDT [facility] J98.8 Other specified respiratory disorders Ot her specified respiratory disorders Diagnosis 04/27/2020 11:04:03 AM EDT [facility] Surgeries/Procedures Procedure Description Date Indications Data Source(s) OFFICE OUTPATIENT VISIT 25 MINUTES 01/25/2021 12:00:00 AM EDT [facility]) GLUC BLD GLUC MNTR DEV CLEARED FDA SPEC HOME USE <td>P OCT GLUCOSE</td><td>Routine</td><td>01/18/2021 12:26 PM EDT</td><td></td><td> </td> 01/18/2021 12:26:00 PM EDT [facility] GLUC BLD GLUC MNTR DEV CLEARED FDA SPEC HOME USE <td>P OCT GLUCOSE</td><td>Routine</td><td>01/18/2021 5:59 AM EDT</td><td></td><td> </td> 01/18/2021 05:59:00 AM EDT [facility] GLUC BLD GLUC MNTR DEV CLEARED FDA SPEC HOME USE <td>P OCT GLUCOSE</td><td>Routine</td><td>01/18/2021 12:03 AM EDT</td><td></td><td> </td> 01/18/2021 12:03:00 AM EDT [facility] GLUC BLD GLUC MNTR DEV CLEARED FDA SPEC HOME USE <td>P OCT GLUCOSE</td><td>Routine</td><td>01/17/2021 6:15 PM EDT</td><td></td><td> </td> 01/17/2021 06:15:00 PM EDT [facility] GLUC BLD GLUC MNTR DEV CLEARED FDA SPEC HOME USE <td>P OCT GLUCOSE</td><td>Routine</td><td>01/17/2021 4:16 PM EDT</td><td></td><td> </td> 01/17/2021 04:16:00 PM EDT [facility] GLUC BLD GLUC MNTR DEV CLEARED FDA SPEC HOME USE <td>P OCT GLUCOSE</td><td>Routine</td><td>01/17/2021 3:20 PM EDT</td><td></td><td> </td> 01/17/2021 03:20:00 PM EDT [facility] LAPS GSTR RSTCV PX W/BYP SHAINA-EN-Y LIMB <150 CM <td>CR EATION, GASTRIC BYPASS, SHAINA-EN-Y, LAPAROSCOPIC, WITH SLEEVE GASTRECTOMY IF INDICATED, WITH LIVER BIOPSY IF INDICATED, WITH HIATAL HERNIA REPAIR IF INDICATED, WITH LAPAROTOMY IF INDICATED</td><td></td><td>01/17/2021 12:59 PM EDT</td><td> Morbid obesity Fatty liver Hepatomegaly</td><td></td> 01/17/2021 12:59:00 PM EDT - 01/17/2021 03:41:00 PM EDT HepatomegalyFatty liverMorbid obesity [facility] Hepatomegaly Fatty liver Morbid obesity GLUC BLD GLUC MNTR DEV CLEARED FDA SPEC HOME USE <td>P OCT GLUCOSE</td><td>Routine</td><td>01/17/2021 10:49 AM EDT</td><td></td><td> </td> 01/17/2021 10:49:00 AM EDT [facility] ECG ROUTINE ECG W/LEAST 12 LDS TRCG ONLY W/O I&R <td>E CG 12- LEAD</td><td>Routine</td><td>01/08/2021 3:25 PM EDT</td><td> Morbid obesity</td><td></td> 01/08/2021 03:25:43 PM EDT Morbid obesity [facility] Morbid obesity BLOOD TYPING ABO <td>TYPE AND SCREEN</td><td> Routine</td><td>01/08/2021 3:20 PM EDT</td><td> Morbid obesity</td><td> </td> 01/08/2021 03:20:00 PM EDT Morbid obesity [facility] Morbid obesity THYROID STIMULATING HORMONE TSH <td>TSH</td><td>Routin e</td><td>01/08/2021 3:20 PM EDT</td><td> Morbid obesity</td><td> </td> 01/08/2021 03:20:00 PM EDT Morbid obesity [facility] Morbid obesity HEMOGLOBIN GLYCOSYLATED A1C <td>HEMOGLOBIN A1C</td><td>Routine</td><td>01/08/2021 3:20 PM EDT</td><td> Morbid obesity</td><td> </td> 01/08/2021 03:20:00 PM EDT Morbid obesity [facility] Morbid obesity Results ID Date Data Source [id number] 06/17/2021 11:21:00 [facility] RETRO LIMITEDCLINICAL HISTORY: Bilateral flank pain.COMPARISON: None available.FINDINGS: Right kidney: Measures 10.6 cm5.2 cm4.6 cm with renal cortical thickness of 1.7 cm.Left kidney: Measures 11 cm5.2 cm5.2 cm with renal cortical thickness of 1.4 cm.Both kidneys are normal in echogenicity without evidence of calculus, mass, or hydronephrosis.Several small gallstones are incidentally noted.IMPRESSION:1. Normal kidneys.2. Cholelithiasis.Dictated by: ASIA MORTENSEN on 06/17/2021lectronically Signed by: ASIA MORTENSEN on 06/17/2021 11:45 AMTranscribed by: rowdy on 06/17/2021 11:45 AMCDS G code: ,CDS Modifier: ,cc: Name Value Range Interpretation Code Description Data Lydia rce(s) Supporting Document(s) ID Date Data Source [id number] 05/29/2021 07:58:37 PM EDT [facility] Name Value Range Interpretation Code Description Data Lydia rce(s) Supporting Document(s) WBC 5.6 10*3/uL (4.1-11.0) [facility] RBC 3.85 10*6/uL (4.00-5.40) L [facility] HGB 13.8 g/dL (12.0-16.0) [facility] HCT 40.1 % (36.0-47.0) [facility] MCV 104.0 fL (80.0-95.0) H [facility] MCH 35.7 pg (27.0-32.0) H [facility] MCHC 34.3 g/dL (32.0-36.0) [facility] RDW 13.3 % (10.5-14.5) [facility] PLT 208 10*3/uL (150-450) [facility] MPV 9.7 fL (7.1-10.7) [facility] NEUT % 61.2 % (35.0-75.0) [facility] LYMPH % 26.5 % (16.0-52.0) [facility] MONO % 9.9 % (0.0-8.0) H [facility] EOS % 1.9 % (0.0-5.0) [facility] BASO % 0.5 % (0.0-4.0) [facility] NEUT # 3.4 10*3/uL (1.8-7.7) [facility] LYMPH # 1.5 10*3/uL (1.2-4.8) [facility] MONO # 0.6 10*3/uL (0.0-0.8) [facility] Eosinophils [#/volume] in Blood by Automated count 0.1 10*3/uL (0.0-0 .5) [facility] BASO # 0.0 10*3/uL (0.0-0.2) [facility] ID Date Data Source [id number] 05/29/2021 08:24:00 PM EDT [facility] Name Value Range Interpretation Code Description Data Lydia rce(s) Supporting Document(s) VITAMIN B12 @ 1295 pg/mL (193-986) H [facility] ID Date Data Source [id number] 05/29/2021 08:24:00 PM EDT [facility] Name Value Range Interpretation Code Description Data Lydia rce(s) Supporting Document(s) SODIUM 140 mmol/L (136-145) [facility] POTASSIUM 4.7 mmol/L (3.6-5.2) [facility] CHLORIDE 103 mmol/L (100-108) [facility] CO2 28 mmol/L (22-31) [facility] ANION GAP 9 mmol/L (7-16) [facility] UREA NITROGEN 15 mg/dL (7-24) [facility] CREATININE 0.86 mg/dL (0.60-1.00) [facility] BUN/CREAT RATIO 17.4 RATIO (10.0-20.0) [facility] GLUCOSE 86 mg/dL (70-99) [facility] CALCIUM 9.5 mg/dL (8.4-10.2) [facility] TOTAL PROTEIN 7.5 g/dL (6.4-8.2) [facility] ALBUMIN 4.0 g/dL (3.5-4.6) [facility] GLOBULIN 3.5 g/dL (2.7-4.3) [facility] ALB/GLOB RATIO 1.1 RATIO [facility] ALKALINE PHOSPHATASE 75 U/L (45-117) [facility] BILIRUBIN,TOTAL 0.6 mg/dL (0.0-1.0) [facility] PLEASE NOTE:Total bilirubin results may be falselyelevated in patients taking Eltrombopag. AST (SGOT) 20 U/L (11-39) [facility] ALT (SGPT) 26 U/L (12-78) [facility] GFR >60 ml/min/1.73m2 (>59) [facility] GFR ( AMER) >60 ml/min/1.73m2 (>59) [facility] GFR INTERPRETATION Laboratory [facility] --NORMAL KIDNEY FUNCTION OR MILD DISEASE - GFR >OR= 60CHRONIC KIDNEY DISEASE - GFR 15 - 59RENAL FAILURE - GFR <15 Est. GFR calculation based on the MDRDstudy equation, which assumes a steadystate for creatinine. Est. GFR should notbe used for medication dosing. ID Date Data Source [id number] 05/29/2021 08:24:00 PM EDT [facility] Name Value Range Interpretation Code Description Data Lydia rce(s) Supporting Document(s) ESTRADIOL @ 24 pg/mL [facility] ESTRADIOL REFERENCE RANGE: MENSTRUATING FEMALES FOLLICULAR PHASE 21-165 PG/ML MIDCYCLE 50-367 PG/ML LUTEAL PHASE 40-259 PG/ML POSTMENOPAUSAL <40 PG/ML ID Date Data Source [id number] 05/29/2021 08:24:00 PM EDT [facility] Name Value Range Interpretation Code Description Data Lydia rce(s) Supporting Document(s) FOLATE @ >20.0 ng/mL (3.1-17.5) H [facility] ID Date Data Source [id number] 05/29/2021 08:24:00 PM EDT [facility] Name Value Range Interpretation Code Description Data Lydia rce(s) Supporting Document(s) PROGESTERONE @ 1.65 ng/mL [facility] PROGESTERONE REFERENCE RANGE:MALE <1.97 NG/MLFEMALEMENSTRUATING FOLLICULAR 0.21 - 1.70 NG/ML LUTEAL 2.25 - 24.20 NG/ML MID-LUTEAL 8.76 - 21.60 NG/MLPOSTMENOPAUSAL < 0.90 NG/ML 1ST TRIMESTER 11.40 - 41.00 NG/ML 2ND TRIMESTER 13.80 - 156.00 NG/ML 3RD TRIMESTER >51.40 NG/ML ID Date Data Source [id number] 05/29/2021 08:24:00 PM EDT [facility] Name Value Range Interpretation Code Description Data Lydia rce(s) Supporting Document(s) FREE THYROXINE @ 1.01 ng/dL (0.76-1.46) [facility] ID Date Data Source [id number] 05/29/2021 08:24:00 PM EDT [facility] Name Value Range Interpretation Code Description Data Lydia rce(s) Supporting Document(s) FSH @ 64.7 mIU/mL [facility] FSH Reference Range:Males 0. 7 - 10.8 mIU/mLFemales, Menstruating Follicular Phase 2.3 - 12.6 mIU/mL Mid cycle Peak 5.2 - 17.5 mIU/mL Luteal Phase 1.7 - 12.9 mIU/mLFemales, Postmenopausal On Menopausal Hormone Therapy (MHT) 5.9 - 72.8 mIU/mL Not on MHT 12.7 - 132.2 mIU/mL ID Date Data Source [id number] 05/29/2021 08:24:00 PM EDT [facility] Name Value Range Interpretation Code Description Data Lydia rce(s) Supporting Document(s) MAGNESIUM 2.4 mg/dL (1.7-2.4) [facility] ID Date Data Source [id number] 05/29/2021 08:24:00 PM EDT [facility] Name Value Range Interpretation Code Description Data Lydia rce(s) Supporting Document(s) TSH,ULTRASENSITIVE @ 2.220 mIU/L (0.360-4.170) [facility] ID Date Data Source [id number] 05/29/2021 08:24:00 PM EDT [facility] Name Value Range Interpretation Code Description Data Lydia rce(s) Supporting Document(s) IRON,TOTAL @ 113 ug/dL (35-150) Laboratory [facility] UIBC @ 149 ug/dL (130-375) [facility] TIBC @ 262 ug/dL (250-450) Laboratory [facility] % SATURATION 43 % (12-50) [facility] ID Date Data Source [id number] 05/29/2021 08:25:55 PM EDT [facility] Name Value Range Interpretation Code Description Data Lydia rce(s) Supporting Document(s) 25 HYDROXY VIT D @ 59 ng/mL (31-100) [facility] A REVIEW OF THE LITERATURE SUGGESTS THEF OLLOWING RANGES FOR THE CLASSIFICATIONOF 25-OH VITAMIN D STATUS: VITAMIN D STATUS 25-OH VITAMIN D DEFICIENCY <20 NG/MLINSUFFICIENCY 20-30 NG/MLSUFFICIENCY 31 - 100 NG/MLTOXICITY > 100 NG/ML A PEDIATRIC REFERENCE RANGE HAS NOT BEENESTABLISHED USING THIS METHOD. ID Date Data Source [id number] 05/30/2021 01:36:37 PM EDT [facility] Name Value Range Interpretation Code Description Data Lydia rce(s) Supporting Document(s) DHEA SULFATE @ 215 ug/dL (35-430) [facility] ID Date Data Source [id number] 06/03/2021 10:41:29 AM EDT [facility] [employer] Name Value Range Interpretation Code Description Data Lydia rce(s) Supporting Document(s) TESTOSTERONE 40 [facility] Reference range: 9 to 55Unit: ng/dL Tota l Testosterone, Females 18 years and older Premenopausal 9-55 ng/dL Postmenopausal 5-32 ng/dL REFERENCE INTERVAL: Testosterone, LC-MS/MS Access complete set of age- and/or gender-specific reference intervals for this test in the [employer] ([employer]). This test was developed and its performance characteristics determined by [facility]. It has not been cleared or approved by the [place] Food and Drug Administration. This test was performed in a CLIA certified laboratory and is intended for clinical purposes. SEX BINDING GLOBULIN 55 nmol/L [facility] Reference range: 30 to 135Unit: nmol/L R EFERENCE INTERVAL: Sex Hormone Binding Globulin Access complete set of age- and/or gender-specific reference intervals for this test in the [employer] ([employer]). TESTOSTERONE FREE 4.9 H Laboratory [facility] Reference range: 0.6 to 3.8Unit: pg/mL T o convert to pmol/L, multiply pg/mL by 3.47 The concentration of Free Testosterone is derived from a mathematical expression based on the constant for the binding of testosterone to sex hormone binding globulin. REFERENCE INTERVAL: Testosterone, Free LC-MS/MS Access complete set of age- and/or gender-specific reference intervals for this test in the [employer] [facility] ([employer]). This test was developed and its performance characteristics determined by [facility]. It has not been cleared or approved by the [place] Food and Drug Administration. This test was performed in a CLIA certified laboratory and is intended for clinical purposes. Performed By: [facility] [address] [place] [id number] [employer] Stretching Machine Operator: Catherine Carlin MD ID Date Data Source [id number] 04/26/2021 12:14:00 PM EDT [facility] Name Value Range Interpretation Code Description Data Lydia rce(s) Supporting Document(s) SARS-CoV-2 RNA Silvano Ql ELOISA+probe Not Detected [facility] This lab was ordered by [employer] and reported by [employer]. ID Date Data Source [id number] 02/08/2021 02:34:32 PM EDT [facility] Name Value Range Interpretation Code Description Data Lydia rce(s) Supporting Document(s) WBC 6.8 10*3/uL (4.1-11.0) [facility] RBC 3.42 10*6/uL (4.00-5.40) L [facility] HGB 11.4 g/dL (12.0-16.0) L [facility] HCT 33.7 % (36.0-47.0) L [facility] MCV 98.7 fL (80.0-95.0) H [facility] MCH 33.3 pg (27.0-32.0) H [facility] MCHC 33.7 g/dL (32.0-36.0) [facility] RDW 12.7 % (10.5-14.5) [facility] PLT 390 10*3/uL (150-450) [facility] MPV 8.9 fL (7.1-10.7) [facility] NEUT % 66.6 % (35.0-75.0) [facility] LYMPH % 18.7 % (16.0-52.0) [facility] MONO % 9.8 % (0.0-8.0) H [facility] EOS % 4.1 % (0.0-5.0) [facility] BASO % 0.8 % (0.0-4.0) [facility] NEUT # 4.5 10*3/uL (1.8-7.7) [facility] LYMPH # 1.3 10*3/uL (1.2-4.8) [facility] MONO # 0.7 10*3/uL (0.0-0.8) [facility] Eosinophils [#/volume] in Blood by Automated count 0.3 10*3/uL (0.0-0 .5) [facility] BASO # 0.1 10*3/uL (0.0-0.2) [facility] ID Date Data Source [id number] 02/08/2021 02:36:03 PM EDT [facility] Name Value Range Interpretation Code Description Data Lydia rce(s) Supporting Document(s) HEMOGLOBIN A1C @ 5.6 % (4.0-6.0) [facility] - [facility] Performed using Siemens Forreston immunoassa y.Care must be taken when interpreting [id number] in patients with a hemoglobin variantor decreased erythrocyte lifespan. Values 5.7 - 6.4% suggest prediabetes.Values >=6.5% are diagnostic for diabetes.REFERENCE: DIABETES CARE 2018: 41(S13-S27). EST AVERAGE GLUCOSE 114 mg/dL [facility] ID Date Data Source [id number] 02/08/2021 03:32:57 PM EDT [facility] Name Value Range Interpretation Code Description Data Lydia rce(s) Supporting Document(s) VITAMIN B12 @ 1361 pg/mL (193-986) H [facility] ID Date Data Source [id number] 02/08/2021 03:32:57 PM EDT [facility] [employer] Name Value Range Interpretation Code Description Data Lydia rce(s) Supporting Document(s) SODIUM 138 mmol/L (136-145) Laboratory [facility] POTASSIUM 4.1 mmol/L (3.6-5.2) Laboratory [facility] CHLORIDE 102 mmol/L (100-108) Laboratory [facility] [facility] CO2 29 mmol/L (22-31) [facility] ANION GAP 7 mmol/L (7-16) [facility] UREA NITROGEN 13 mg/dL (7-24) Laboratory [facility] CREATININE 0.73 mg/dL (0.60-1.00) [facility] BUN/CREAT RATIO 17.8 RATIO (10.0-20.0) [facility] GLUCOSE 97 mg/dL (70-99) [facility] CALCIUM 9.4 mg/dL (8.4-10.2) [facility] TOTAL PROTEIN 6.9 g/dL (6.4-8.2) Laboratory Allia nce of [facility] ALBUMIN 3.2 g/dL (3.5-4.6) L [facility] - CORE GLOBULIN 3.7 g/dL (2.7-4.3) [facility] ALB/GLOB RATIO 0.9 RATIO Laboratory Luciano an[facility] ALKALINE PHOSPHATASE 89 U/L (45-117) Laborator y [facility] BILIRUBIN,TOTAL 0.4 mg/dL (0.0-1.0) [facility] PLEASE NOTE:Total bilirubin results may be falselyelevated in patients taking Eltrombopag. AST (SGOT) 17 U/L (11-39) [facility] ALT (SGPT) 43 U/L (12-78) [facility] GFR >60 ml/min/1.73m2 (>59) Laboratory [facility] GFR ( AMER) >60 ml/min/1.73m2 (>59) [facility] GFR INTERPRETATION [facility] --NORMAL KIDNEY FUNCTION OR MILD DISEASE - GFR >OR= 60CHRONIC KIDNEY DISEASE - GFR 15 - 59RENAL FAILURE - GFR <15 Est. GFR calculation based on the MDRDstudy equation, which assumes a steadystate for creatinine. Est. GFR should notbe used for medication dosing. ID Date Data Source [id number] 02/08/2021 03:32:57 PM EDT [facility] Name Value Range Interpretation Code Description Data Lydia rce(s) Supporting Document(s) FERRITIN @ 354 ng/mL (8-252) H [facility] ID Date Data Source [id number] 02/08/2021 03:32:57 PM EDT [facility] Name Value Range Interpretation Code Description Data Lydia rce(s) Supporting Document(s) IRON,TOTAL @ 50 ug/dL (35-150) Laboratory [facility] UIBC @ 103 ug/dL (130-375) L [facility] TIBC @ 153 ug/dL (250-450) L [facility] % SATURATION 33 % (12-50) Laboratory [facility] ID Date Data Source [id number] 02/08/2021 03:32:57 PM EDT [facility] Name Value Range Interpretation Code Description Data Lydia rce(s) Supporting Document(s) MAGNESIUM 2.4 mg/dL (1.7-2.4) [facility] ID Date Data Source [id number] 02/08/2021 03:32:57 PM EDT [facility] Name Value Range Interpretation Code Description Data Lydia rce(s) Supporting Document(s) PHOSPHORUS 3.5 mg/dL (2.5-4.5) [facility] ID Date Data Source [id number] 02/08/2021 04:45:57 PM EDT [facility] Name Value Range Interpretation Code Description Data Lydia rce(s) Supporting Document(s) 25 HYDROXY VIT D @ 49 ng/mL (31-100) [facility] A REVIEW OF THE LITERATURE SUGGESTS THEF OLLOWING RANGES FOR THE CLASSIFICATIONOF 25-OH VITAMIN D STATUS: VITAMIN D STATUS 25-OH VITAMIN D DEFICIENCY <20 NG/MLINSUFFICIENCY 20-30 NG/MLSUFFICIENCY 31 - 100 NG/MLTOXICITY > 100 NG/ML A PEDIATRIC REFERENCE RANGE HAS NOT BEENESTABLISHED USING THIS METHOD. ID Date Data Source [id number] 02/11/2021 11:33:53 PM EDT [facility] Name Value Range Interpretation Code Description Data Lydia rce(s) Supporting Document(s) SR HCT 33.7 % [facility] FOLATE RBC 583 ng/mL [facility] Reference range: >=366 Performed By: [employer] [address] [place] [address] Brim Stretching Machine Operator: Catherine Carlin MD ID Date Data Source [id number] 02/14/2021 11:16:26 AM EDT Laboratory [facility] Name Value Range Interpretation Code Description Data Lydia rce(s) Supporting Document(s) VITAMIN B1 77 nmol/L Laboratory [facility] Reference range: 70 to 180 INTERPRETIVE INFORMATION: Vitamin B1, Whole Blood This assay measures the concentration of thiamine diphosphate (TDP), the primary active form of vitamin B1. Approximately 90 percent of vitamin B1 present in whole blood is TDP. Thiamine and thiamine monophosphate, which comprise the remaining 10 percent, are not measured. This test was developed and its performance characteristics determined by [facility]. It has not been cleared or approved by the US Food and Drug Administration. This test was performed in a CLIA certified laboratory and is intended for clinical purposes. Performed By: [facility] [address] [place] [address] Brim Stretching Machine Operator: Catherine Carlin MD ID Date Data Source [id number] 01/25/2021 06:13:00 PM EDT [facility] Name Value Range Interpretation Code Description Data Lydia rce(s) Supporting Document(s) SARS coronavirus 2 RNA [Presence] in Res piratory specimen by ELOISA with probe detection [facility]IVE [facility] This lab was ordered by [facility] a nd reported by [facility]. ID Date Data Source [id number] 01/18/2021 04:46:47 PM EDT [facility] NT INFORMATIONPatient MRN Name Date of Age Gend*PT [id number] Helga Hu 1960 60 years F IPPT Location Admission Date/Time Visit ID Attending [id number] 01/17/21 0956 --- --- EPI ID CSN Admitting Provider [id number] Enmanuel Riggins MD([id number]) Attestation signed by Enmanuel Riggins MD at 01/18/2021 4:46 PMI saw and evaluated the patient and reviewed PERNELL Perez's note. I agreewith the history, physical and medical decision makingSignature: JONH Chaparroate: January 18, 2021Time: 4:46 PM --Discharge SummaryHelga Hu date: 01/17/2021 9:56 AM Primary Care Provider: PCP PROVIDER REQUESTEDAdmitting Physician: Stacey Chaparro Diagnosis: Post-Op Diagnosis Codes: * Morbid obesity [E66.01] * Fatty liver [K76.0] * Hepatomegaly [R16.0]Secondary Diagnoses:Past Medical History:Diagnosis Date Celiac disease GERD (gastroesophageal reflux disease) Hypertension Morbid obesity Peptic ulcer disease PONV (postoperative nausea and vomiting) Sleep apnea Borderline No CPAPSurgical Procedures performed on 01/17/2021 by Enmanuel Riggins MD Procedure(s): CREATION, GASTRIC BYPASS, SHAINA-EN-Y, LAPAROSCOPIC, WITH LIVER BIOPSY Post-Op Diagnosis Codes: * Morbid obesity [E66.01] * Fatty liver [K76.0] * Hepatomegaly [R16.0]Secondary Procedures:None.Indication for Admission: Morbid ObesitytMeliamalia Hu is a 60 years female who suffers from morbid obesity.Her current weight and height are :Wt Readings from Last 1 Encounters:01/17/21 (!) 104.1 kg (229 lb 8 oz)Ht Readings from Last 1 Encounters:01/17/21 1.626 m (5' 4")Giving her a Body mass index is 39.39 kg/m .; therefore, Helga Hu metthe criteria for weight loss surgery as defined in the NIH consensus statement,and surgery was medically necessary.Hospital Course: The patient underwent above listed procedure on 01/17/2021 by Lynn. There were no intraoperative complications and postoperatively She wastransferred to the floor in stable condition. There were no postoperativeissues. Up on the floor She was given sips of water and dilute juice to drink.She also ambulated and used the incentive spirometer appropriately. She had nodifficulties voiding. She had adequate pain control as well with simethiconeand tylenol. At the time of discharge, Accuchecks and blood pressure werenormal. She was tolerating 4 oz of fluid consistently without nausea. Patientwas deemed appropriate for discharge home per MD.Patient was given post-op instructions and expressed understanding. They weregiven warning signs and symptoms to call the office with.She received extensive education on medications to take at home as well as dieteducation. She showed very good understanding and agreement with the dischargeplan.Most recent glucose:Glucose, POCDate Value Ref Range Exktar1601/18/2021 117 (H) 70 - 99 mg/dL Final Comment: [facility]ICAL STAFFDischarge instructions were reviewed in person and provided to the patient inprinted form as well. Helga Hu knows to call is there are any problemsDischarge Exam:Vitals: Temp: [98 F-98.7 F] 98 FHeart Rate: [53-72] 58Resp: [11-17] 16BP: (93-120)/(49-78) 117/74General: Laying in bed comfortably, in NADHeart: RRRLungs: Non-laboredAbd: Soft, mild distension, appropriately tender, BS present, incisions C/D/IExt: Calves non- tender to palpationDischarged Condition:goodDisposition: Home or Self CareFollow-up:Enmanuel Riggins MD as scheduled in the office.Medications:@DISCHARGEMEDSLIST@ PERNELL Perez01/18/2111:20 AM Name Value Range Interpretation Code Description Data Lydia rce(s) Supporting Document(s) ID Date Data Source [id number] 01/18/2021 12:29:37 PM EDT [facility] Name Value Range Interpretation Code Description Data Lydia rce(s) Supporting Document(s) POC NOVA GLU 76 mg/dL (70-99) [facility] [place] [facility]FORMED BY [facility] ID Date Data Source [id number] 01/18/2021 06:03:02 AM EDT [facility] Name Value Range Interpretation Code Description Data Lydia rce(s) Supporting Document(s) POC NOVA GLU 117 mg/dL (70-99) H [facility] [place] [facility] ID Date Data Source [id number] 01/18/2021 12:06:23 AM EDT [facility] Name Value Range Interpretation Code Description Data Lydia rce(s) Supporting Document(s) POC NOVA GLU 145 mg/dL (70-99) H [facility] [place] [facility] ID Date Data Source [id number] 01/17/2021 06:18:16 PM EDT [facility] Name Value Range Interpretation Code Description Data Lydia rce(s) Supporting Document(s) POC NOVA GLU 122 mg/dL (70-99) H [facility] [place] [facility] ID Date Data Source [id number] 01/17/2021 04:19:11 PM EDT [facility] Name Value Range Interpretation Code Description Data Lydia rce(s) Supporting Document(s) POC NOVA GLU 130 mg/dL (70-99) H [facility] [place] [facility] ID Date Data Source [id number] 01/17/2021 03:23:07 PM EDT [facility] Name Value Range Interpretation Code Description Data Lydia rce(s) Supporting Document(s) POC NOVA GLU 142 mg/dL (70-99) H [facility] [place] [facility] ID Date Data Source [id number] 01/17/2021 03:16:18 PM EDT [facility] NT INFORMATIONPatient MRN Name Date of Age Gend*PT [id number] FritzHelga Yamilex 1960 60 years F IPPT Location Admission Date/Time Visit ID Attending ProviderPERIOP CECI 01/17/21 0956 --- Enmanuel Riggins MD([id number]) EPI ID CSN Admitting Provider [id number] Enmanuel Riggins MD([id number])CREATION, GASTRIC BYPASS, SHAINA-EN-Y, LAPAROSCOPIC, WITH LIVER BIOPSY ProcedureNoteMeliamalia Hu CSN:[id number]/17/2021Surgeon(s):ALEXSANDRA Chaparrourgical Assist: Ivan Llanesaff:OR Workplace Relations Adviser: FLOWER Carrurgical Assist: JEMMA Llanes Relief Scrub: Lawanda Renteria Scrub Person: Kwesi SoaresProcedure(s):CREA TION, GASTRIC BYPASS, SHAINA-EN-Y, LAPAROSCOPIC, WITH LIVER BIOPSYLaparoscopic Shaina Y Gastric Bypass, antecolic, antegastric, 50 cm PancreaticoBiliary Limb, 150 cm Shaina Limb,Wedge liver biopsyEsophagogastrojejunoscopyAnesthesia: GeneralPre-op Diagnosis:Morbid obesity [E66.01]Post-Op Diagnosis Codes: * Morbid obesity [E66.01] * Fatty liver [K76.0] * Hepatomegaly [R16.0]Drains:Grafts/Implants:NoneSpecimens:ID Type Source Tests Collected by [facility] : Liver Biopsy Tissue Tissue SURGICAL PATHOLOGY EXAM Enmanuel Riggins MD01/17/2021 1331Estimated Blood Loss: 20 mLBlood Administered: See Anesthesia RecordComplications: NoneFindings: Consistent with the Operative Diagnosis, central visceral obesity,hepatomegaly with fatty liver, delayed JJ enterotomy closure, negative leaktest, umbilical port site fascial closure.Indication for Procedure (s):Helga Hu is a 60 years year old female who suffers from severe obesity.Helga Hu has attempted multiple diets over the years, and has been ableto lose modest amounts of weight, however the weight loss has never beensustained. She is 64 in, 237lb and BMI of 40.68. His/Her weight impacts heractivities of daily living. Her associated comorbidities in clude(M25.50) Pain in unspecified joint(K90.0) Celiac disease(G47.33) Obstructive sleep apnea (adult) (pediatric)(M54.9) Dorsalgia, unspecifiedShe meets the criteria for bariatric surgery as defined in the NIH consensusstatement, surgery is medically necessary. We explained the operation, potentialcomplications, what can be expected after surgery, and what to expect for therest of their life. An informed consent discussion was held. The operations Ioffer and their potential complications were discussed. After discussion,patient and I agreed to proceed with a laparoscopic Shaina-en-Y Gastric Bypass,possible Sleeve Gastrectomy if hostile abdomen is encountered. Botox educationgiven to patient. This may include repair of a Hiatal Hernia if found and aWedge Liver Biopsy if there is a fatty liver. We covered complicationsincluding: , AR, DVT, PE, leaks, sepsis, gallbladder disease, anastomoticulcers, bleeding, failure of weight loss, malnutrition, need for open surgery,internal and external hernias, risk of COVID 19 infection during the hospitalstay, and the need for repeat surgery, among others.DESCRIPTION OF PROCEDURE: The patient was taken to the operating room and placedon the operating table in supine position. Next, general anesthesia was inducedand patient was intubated. The abdomen was prepped and draped in the usualsterile fashion. A time-out was performed with all OR personnel inparticipation. The patient's identity, procedure, preoperative antibiotics,subcutaneous heparin and SCDs were all confirmed.Access into the intraabdominal cavity was gained through a 12- mm RUQ incisionusing a 12-mm Optiview port with a 10-mm 0- degree scope. Once inside,pneumoperitoneum was established and additional ports were placed in thefollowing configuration: one 12-mm in supraumbilical area and one 12-mm rightlower quadrant port, two 12-mm left sided flank ports and one 5-mm epigastricport. Next, the liver was evaluated, which looked enlarged and fattyinfiltrated, and a wedge liver biopsy was taken from the left lobe with Harmonicdevice. Afterwards, the root of the mesentery was identified by retracting themesocolon and transverse colon in a cephalad direction. A 3-0 V- Loc suture wasplaced at the root of the mesentery. This would be used later for closure of theRetro-Shaina space. The ligament of Treitz was identified and the small bowel wasran distally 50 cm for the pancreaticobiliary limb and this was pushed to thepatient's left. An additional 150 cm was measured distally for the Shaina limb.The small bowel was transected with a white load on a power [place] stapler atthe 50 cm point. The biliopancreatic limb and the Shaina limb were ifqhctyrfxkzao-cd-skpd. The intermesenteric defect between the two limbs was closed with arunning 3-0 V-Loc suture. Once this was closed, an enterotomy was m ravi in thebiliopancreatic limb and then in the Shaina limb. The 60-mm [place] stapler with awhite load was inserted into both enterotomies and fired creating thejejunojejunostomy. Next, the greater omentum was transected with the Harmonicdevice from the colon up to the stomach. Attention was re-directed at thejejunojejunostomy to perform a delayed closure. The internal staple line of thejejunojejunostomy was inspected with wavy graspers; Hemostasis was excellent.Next, the remaining enterotomy defect was closed with a 3-0 V-loc suture in astandard running fashion and double-layer closure technique was do ne.The patient was then placed in steep reverse Trendelenburg and the NG tube wasremoved. The scope was changed to a long bariatric 45 degree scope. The angle ofHis was dissected out with a [place] grasper behind the hiatus, exposing theleft anirudh. There was no significant hiatal hernia appreciatedThe gastric pouch was then created. Using the wavy graspers and Harmonic device,a perigastric dissection was performed 10 cm distal to the GE junction along thelesser curvature. Once inside the lesser sac, a 60-mm stapler with the greenload cartridge was fired transversely across the lesser curve 50 mm. A 30- Frenchbougie was used up to help size the pouch. The pouch was completed usingmultiple firings of green and blue loads up towards the angle of His andparallel to the lesser curve. Afterwards, a gastrotomy was made at the distalend of the pouch. An enterotomy was made at the 11 o'clock position of theproximal end of the Shaina limb. The linear stapler with a blue load cartridge wasinserted at 40 mm into the gastrotomy and enterotomy and fired creating thegastrojejunostomy. An anti-tension stitch was placed at the crotch of theanastomosis using a 3-0 V-Loc suture and this was used to oversew the verti calpouch staple line. 3-0 silk anchoring sutures were placed at the proximal anddistal end of the gastrojejunostomy opening. The remaining defect of theanastomosis was closed with a 3-0 V-loc suture in a running fashion. Adouble- layer closure technique was performed. The staple lines of the pouch andremnant stomach were inspected for bleeding. Hemostasis was obtained withbipolar cautery.Next, the patient was laid flat. The retro-Shaina space was closed with thepreviously placed 3-0 V- Loc suture. After this was done, the anastomosis wastested for leaks. My personalized living assistant clamped across the Shaina limb with the bowel clampwhile I passed the endoscope into the esophagus, into the pouch, and into theRoux limb. I insufflated with air and my personalized living assistant irrigated over theanastomosis with normal saline. There were no bubbles seen emanating from theanastomosis; therefore, the test was negative and complete. The insufflated airwas evacuated and the scope was retrieved. Next, all staple lines werereinspected and hemostasis was obtained with bipolar cautery. Intra- abdominal0.25% marcaine was placed over the viscera in the upper abdomen. All port siteswere inspected for bleeding and hemostasis was excellent. Umbilical port sitefascial closure was done. The pneumoperitoneum was evacuated and the skinincisions were closed with 4-0 Vicryl. 0.25% Marcaine was used to infiltrate theskin incisions and dermabond was applied. Sponge, needle, and instrument countswere accurate at the end of the case.The patient tolerated the procedure well. They were extubated and taken torecovery room in stable condition.All significant tasks completed under the direction of the primary surgeon withthe exception of:JONH Santiagoate: 01/17/2021 Time: 3:08 PM Name Value Range Interpretation Code Description Data [facility] Supporting Document(s) ID Date Data Source [id number] 01/17/2021 01:29:07 PM EDT [facility] NT INFORMATIONPatient MRN Name Date of Age Gend*PT [id number] Helga Hu 1960 60 years F SDAPT Location Admission Date/Time Visit ID Attending Provider --- --- --- --- EPI ID CSN Admitting Provider [id number] ---AirwayPatient location during procedure: ORUrgency: electiveDifficult airway: noAdvanced airway equipment used: noStaffingPerformed by: Nina Falcon CRNAAnesthesiologist: Cm Tompkins MDIndications and Patient ConditionIndications for airway management: anesthesiaPreoxygenated: yesPatient position: sniffingIn-line stabilization: noMask ventilation: 1 - vent by maskFinal Airway/ApproachesFinal airway type: ETTNumber of attempts at final approach: 1Number of other approaches attempted: 0Final Airway DetailsFinal ETT airway: ETT - singleCuffed: yesTechnique used for successful ETT placement: direct laryngoscopy and regularstyletCricoid pressure: noRSI: noInsertion site: oralBlade type/size: MAC 3.5ETT size: 7.5 mmMeasured from: lipsETT to lips: 21 cmPlacement verified by: chest auscultation and + [id number]: equal breath sounds bilateral and CTAGrade view: grade IIa - partial view of glottis Name Value Range Interpretation Code Description Data Lydia rce(s) Supporting Document(s) ID Date Data Source [id number] 01/17/2021 12:10:19 PM EDT [facility] NT INFORMATIONPatient MRN Name Date of Age Gend*PT [id number] Helga Hu 1960 60 years F SDAPT Location Admission Date/[facility] 0956 --- Enmanuel Riggins MD([id number]) EPI ID CSN Admitting Provider [id number] Enmanuel Riggins MD([id number])H&P reviewed. The patient was examined and there are no changes to the H&P.Enmanuel Riggins MD12:10 PM Name Value Range Interpretation Code Description Data Lydia rce(s) Supporting Document(s) ID Date Data Source [id number] 01/17/2021 10:52:07 AM EDT [facility] Name Value Range Interpretation Code Description Data Lydia rce(s) Supporting Document(s) POC NOVA GLU 72 mg/dL (70-99) [facility] PERFOR[facility] ID Date Data Source [id number] 01/21/2021 02:03:14 PM EDT [facility] [address], [place] [address]Kkr# Surgical Pathology ReportPatient Name: HELGA HU: 2Accession #:[id number](s) ReceivedA: Liver biopsyClinical Diagnosis and HistoryMorbid obesity DIAGNOSISLIVER, WEDGE BIOPSY: MODERATE MACROVESICULAR STEATOSIS MILD SIDEROSISCommentsThe sections contain liver exhibiting intact, normal architectureconfirmed with a reticulin stain. A trichrome stain shows only focal,mild, nonspecific subcapsular fibrosis. A PAS stain, after diastase,shows no steatohepatitis and no abnormal hepatocyte inclusions are seen. An iron stain shows a few scattered foci with trace iron stain positivitywithin hepatocytes. Overall, the hepatic iron does not appear increased. The patient underwent serologic studies on 12/05/20 that showed normalvalues for albumin, alkaline phosphatase, total bilirubin, AST, and ALT. Gross DescriptionReceived in formalin labeled "liver biopsy" is a 2.0 x 0.5 x 0.5 cmtan-red wedge shaped fragment of liver tissue. Serially sectioned andentirely submitted as A1. Modified liver biopsy protocol. [email or web address] Reported: 01/21/2021Electronically Signed Out By Ramin Meadows MD [facility], [place] [address]mudTqifqbjkb component performed at [facility], Histopathology, [address] [place] [address], [id number].[facility] at [facility], [address] [place], [place], [address]. This report may includeimmunohistochemical or in-situ hybridization results. Testing wasdeveloped and the performance characteristics determined by [facility], [facility] as required by CLIA '88. The FDA hasdetermined that approval for specific use is not necessary for clinicaluse. The quality of Hematoxylin and Eosin stains and as applicable, forall immunohistochemical and/or special stains, including positive andnegative controls, were reviewed and considered appropriate.ICD codes E66.01 K76.0 J63.4CPT codesA: 80388Z, 59686U, 79651W, 72840B, 71477Y Name Value Range Interpretation Code Description Data Lydia rce(s) Supporting Document(s) ID Date Data Source [id number] 01/12/2021 07:55:00 AM EDT [facility] Name Value Range Interpretation Code Description Data Lydia rce(s) Supporting Document(s) SARS coronavirus 2 RNA Not Detected [facility] This lab was ordered by [facility] and reported by [employer]. ID Date Data Source [id number] 01/13/2021 01:07:14 PM EDT [facility] Name Value Range Interpretation Code Description Data Lydia rce(s) Supporting Document(s) SARS-COV-2 ELOISA [facility] Not DetectedReference range: Not Detecte d This nucleic acid amplification test was developed and its performance characteristics determined by [employer]. Nucleic acid amplification tests include RT-PCR and TMA. This test has not been FDA cleared or approved. This test has been authorized by FDA under an Emergency Use Authorization (EUA). This test is only authorized for the duration of time the declaration that circumstances exist justifying the authorization of the emergency use of in vitro diagnostic tests for detection of SARS-CoV-2 virus and/or diagnosis of COVID-19 infection under section 564(b)(1) of the Act, 21 U.S.C. 360bbb-3(b) (1), unless the authorization is terminated or revoked sooner. When diagnostic testing is negative, the possibility of a false negative result should be considered in the context of a patient's recent exposures and the presence of clinical signs and symptoms consistent with COVID- 19. An individual without symptoms of COVID- 19 and who is not shedding S ARS-CoV-2 virus would expect to have a negative (not detected) result in this assay. Performed At: [place], [place] [id number] Nhung Trujillo PhD Ph:[phone] ID Date Data Source [id number] 01/08/2021 04:14:03 PM EDT [facility] Name Value Range Interpretation Code Description Data Lydia rce(s) Supporting Document(s) EKG [facility] [id number]3NzSBBuQHXOIQ1YkQQi jb2 [file] [id number]cFbTZL2HbHjNY5G ID Date Data Source [id number] 01/08/2021 03:24:56 PM EDT [facility] NT INFORMATIONPatient MRN Name Date of Age Gend*PT [id number] Helga Hu 1960 60 years F OPPT Location Admission Date/Time Visit ID Attending Provider --- --- --- Enmanuel Riggins MD([id number]) EPI ID CSN Admitting Provider [id number] Enmanuel Riggins MD([id number])HISTORY PHYSICALName: Helga Hu : 1960 Sex: female Care Provider: PCP PROVIDER REQUESTEDAttending Physician: Dr. RigginsInformant: The patient who is reliable.Chief Complaint: OverweightHISTORY OF PRESENT ILLNESS: 60 years old white female with a 30 year history ofbeing overweight that has been more significant over the last 18 months. Shestates she is now at her heaviest weight of 242 pounds. She has tried multipleweight loss methods but has been unable to lose significant weight or sustainthe weight loss. She is now ready for surgical intervention.The patient met with Dr. Riggins, options were discussed and they have elected tounder go CREATION, GASTRIC BYPASS, SHAINA-EN-Y, LAPAROSCOPIC, WITH SLEEVEGASTRECTOMY IF INDICATED, WITH LIVER BIOPSY IF INDICATED, WITH HIATAL HERNIAREPAIR IF INDICATED, WITH LAPAROTOMY IF INDICATED on 01/17/2021.PAST MEDICAL HISTORY:Past Medical History:Diagnosis Date Celiac disease GERD (gastroesophageal reflux disease) Hypertension Morbid obesity Peptic ulcer disease PONV (postoperative nausea and vomiting) Sleep apnea Borderline No CPAPPAST SURGICAL HISTORY:Past Surgical History:Procedure Laterality Date ABDOMINOPLASTY 2009 BREAST SURGERY Bilateral implants LASIK Bilateral PANENDOSCOPY N/A 05/01/2020 Procedure: ENDOSCOPY, UPPER GASTROINTESTINAL (GI) TRACT WITH BIOPSY; Surgeon:Doron Mabry MD; Laterality: N/A;ALLERGIES: No Known Drug AllergiesMEDICATIONS:Prior to Admission medicationsMedication Sig Start Date End Date Taking? Authorizing Providerloratadine-pseudoephedrine (CLARITIN-D 24-hour) 10-240 MG per 24 hr tablet Take1 tablet by mouth daily Historical Provider, Kanaetoprolol succinate (TOPROL-XL) 25 MG 24 hr tablet Take 25 mg by mouth dailyWith 50 mg for a total of 75 mg Historical Provider, Kanaetoprolol succinate (TOPROL-XL) 50 MG 24 hr tablet Take 50 mg by mouth dailyWith 25 for a total of 75 mg Historical Provider, omeprazole (PriLOSEC) 20 MG capsule Take 20 mg by mouth once dailyHistorical Provider, ondansetron (ZOFRAN-ODT) 4 MG disintegrating tablet Take 4 mg by mouth daily asneeded for nausea Historical Provider, MDSocial HistoryTobacco Use Smoking status: Never Smoker Smokeless tobacco: Never UsedVaping Use Vaping Use: Never usedSubstance Use Topics Alcohol use: Yes Comment: 1-2/day Drug use: NeverFamily HistoryProblem Relation Age of Onset Malig Hyperthermia Neg HxREVIEW OF SYSTEMS:Constitution: Weight stable. Denies fatigue, fever or chills. Caffeine intake: 2cups/day.HEENT:She wears glasses for reading. Denies any blurred vision, double vision,dizziness, tinnitus, dysphagia or headaches.Respiratory: Denies any shortness of breath, cough, yellow sputum production orwheezing.Cardiovascular: Denies any chest pain, pressure or tightness. Denies anyparoxysmal nocturnal dyspnea or orthopnea.Muscle/Skeletal System: Denies any muscle ache, joint ache or weakness.Neurologic: Denies any numbness, tingling, tremors or syncope.GI: Denies any nausea, vomiting, diarrhea, constipation or melena.: Denies any dysuria, hematuria or nocturia.Endocrine: Denies polyuria, polydipsia or polyphagia. Denies any heat or coldintolerance, or night sweats.Hematology: Denies any bleeding or bruising tendencies.DNR Status: Full Code per the patient.HCP: Yes per patient.PHYSICAL EXAM:General: She is a 60 years old, pleasant white female, in no acute distress attime of examination. Vitals on arrival to the office are BP 127/74 (BP Location:Left upper arm, Patient Pos ition: Sitting) | Pulse 66 | Ht 1.626 m (5' 4") |Wt (!) 109.5 kg (241 lb 8 oz) | SpO2 95% | BMI 41.45 kg/m Body mass index is41.45 kg/m ..Skin is pink warm and dry.HEENT: She is normocephalic, atraumatic. [place] conjunctivae. Anicteric sclerae.Pupils are equal, round, reactive to light and accommodation. Extraocularmovements are intact. Ears: Without drainage or lesion. Mouth: Dentition is ingood repair. She has a grade 3 airway. Neck is supple midline without cervicaladenopathy. There is no tonsillo pharyngeal congestion. Mucous membranes aremoist. There are no oral lesions. No jugular distention. No carotid bruit.CHEST/BREAST: A/P less than transverse. Breast exam declined.LUNGS: Clear to auscultation. No wheezes, rhonchi or crackles.HEART: Rate rhythm regular. S1, S2. No murmur, rub or gallop.ABDOMEN: Bowel sounds positive times four. Soft, non tender. No reboundtenderness. No hepatosplenomegaly. Negative CVAT.GENITAL/RECTAL: Deferred.MUSCLE/SKELETAL: Strength is 5/5. Intelligence Analyst are equal.NEUROLOGICALLY: Cranial nerves II through XII are grossly intact.VASCULAR: Pulses are symmetrical. No edema.Anesthesia complications: PONVSteroid use: She denies any oral steroid therapy for three weeks or greaterwithin the last 3 months.[facility] Frailty Scale :: 3/10 Managing Well (medical problems are well controlled,but are not regularly active beyond routine walking).Stop Bang Questionnaire - Total Score:IMPRESSION and PLAN:Primary Diagnosis: Morbid obesity Surgery as per Dr. Riggins.Secondary Diagnosis and Plan:1. Morbid Obesity Body mass index is 41.45 kg/m .2. Hypertension Continuation of prior to admission anti- hypertensivemedications unless precluded by clinical status.3. Sleep apnea Obstructive4. GI prophylaxis Per surgeon5. DVT prophylaxis Early ambulatio n. Pneumatic compression device.Subcutaneous Heparin or LMW Heparin if clinically indicatedBased on above medical co morbidities, length of stay may be prolonged greaterthan previously anticipated.ALLERGIES:Patient has no known drug allergies.01/08/2021 3:24 PMSamantha Wynne NP*This document or parts of this document, were dictated using 22seeds speaking software. A reasonable attempt at proofreading has beenmade to minimize errors. Please call with any questions or corrections. Name Value Range Interpretation Code Description Data [facility] Supporting Document(s) ID Date Data Source [id number] 01/08/2021 08:23:24 PM EDT [facility] Name Value Range Interpretation Code Description Data [facility] Supporting Document(s) TSH,ULTRASENSITIVE @ 3.430 mIU/L (0.360-4.170) [facility] ID Date Data Source [id number] 01/08/2021 08:02:00 PM EDT [facility] Name Value Range Interpretation Code Description Data [facility] Document([facility]) HEMOGLOBIN A1C @ 5.4 % (4.0-6.0) [facility] Performed using Siemens NTN Buzztime immunoassa y.Care must be taken when interpreting EmU2fomuxvds in patients with a hemoglobin variantor decreased erythrocyte lifespan. Values 5.7 - 6.4% suggest prediabetes.Values >=6.5% are diagnostic for diabetes.REFERENCE: DIABETES CARE 2018: 41(S13-S27). EST AVERAGE GLUCOSE 108 mg/dL [facility] ID Date Data Source [id number] 01/08/2021 06:53:45 PM EDT [facility] SPEC EXP DATE 01/18/2021ATI ENT ABO/Rh A NEGATIVEANTIBODY SCREEN NEGATIVETESTING SITE PERFORMED AT [address] [place] [address] 57722SNCIA BANK COMMENT BLOOD TYPE CONFIRMED. Name Value Range Interpretation Code Description Data Lydia rce(s) Supporting Document(s) TYPE AND SCREEN [facility] ID Date Data Source [id number] 12/05/2020 06:21:51 PM EDT [facility] Name Value Range Interpretation Code Description Data Lydia rce(s) Supporting Document(s) WBC 5.5 10*3/uL (4.1-11.0) [facility] RBC 3.80 10*6/uL (4.00-5.40) L [facility] HGB 13.3 g/dL (12.0-16.0) [facility] HCT 39.8 % (36.0-47.0) [facility] MCV 104.7 fL (80.0-95.0) H [facility] MCH 34.9 pg (27.0-32.0) H [facility] MCHC 33.3 g/dL (32.0-36.0) [facility] RDW 13.2 % (10.5-14.5) [facility] PLT 205 10*3/uL (150-450) [facility] MPV 9.4 fL (7.1-10.7) [facility] NEUT % 54.8 % (35.0-75.0) [facility] LYMPH % 32.9 % (16.0-52.0) [facility] MONO % 6.9 % (0.0-8.0) [facility] EOS % 4.8 % (0.0-5.0) [facility] BASO % 0.6 % (0.0-4.0) [facility] NEUT # 3.0 10*3/uL (1.8-7.7) [facility] LYMPH # 1.8 10*3/uL (1.2-4.8) [facility] MONO # 0.4 10*3/uL (0.0-0.8) [facility] Eosinophils [#/volume] in Blood by Automated count 0.3 10*3/uL (0.0-0 .5) [facility] BASO # 0.0 10*3/uL (0.0-0.2) [facility] ID Date Data Source [id number] 12/05/2020 07:07:32 PM EDT [facility] Name Value Range Interpretation Code Description Data Lydia rce(s) Supporting Document(s) DHEA SULFATE @ 174 ug/dL (35-430) [facility] ID Date Data Source [id number] 12/05/2020 07:07:32 PM EDT [facility] Name Value Range Interpretation Code Description Data Lydia rce(s) Supporting Document(s) THYROXINE @ 7.1 ug/dL (4.5-10.9) [facility] ID Date Data Source [id number] 12/05/2020 07:19:00 PM EDT [facility] Name Value Range Interpretation Code Description Data Lydia rce(s) Supporting Document(s) SODIUM 143 mmol/L (136-145) [facility] POTASSIUM 4.4 mmol/L (3.6-5.2) [facility] CHLORIDE 104 mmol/L (100-108) [facility] CO2 29 mmol/L (22-31) [facility] ANION GAP 10 mmol/L (7-16) [facility] UREA NITROGEN 20 mg/dL (7-24) [facility] CREATININE 0.91 mg/dL (0.60-1.00) [facility] BUN/CREAT RATIO 22.0 RATIO (10.0-20.0) H [facility] GLUCOSE 92 mg/dL (70-99) [facility] CALCIUM 9.6 mg/dL (8.4-10.2) [facility] TOTAL PROTEIN 7.5 g/dL (6.4-8.2) [facility] ALBUMIN 4.3 g/dL (3.5-4.6) [facility] GLOBULIN 3.2 g/dL (2.7-4.3) [facility] ALB/GLOB RATIO 1.3 RATIO [facility] ALKALINE PHOSPHATASE 73 U/L (45-117) [facility] BILIRUBIN,TOTAL 0.6 mg/dL (0.0-1.0) [facility] PLEASE NOTE:Total bilirubin results may be falselyelevated in patients taking Eltrombopag. AST (SGOT) 17 U/L (11-39) [facility] ALT (SGPT) 31 U/L (12-78) [facility] GFR >60 ml/min/1.73m2 (>59) [facility] GFR ( AMER) >60 ml/min/1.73m2 (>59) [facility] GFR INTERPRETATION [facility] --NORMAL KIDNEY FUNCTION OR MILD DISEASE - GFR >OR= 60CHRONIC KIDNEY DISEASE - GFR 15 - 59RENAL FAILURE - GFR <15 Est. GFR calculation based on the MDRDstudy equation, which assumes a steadystate for creatinine. Est. GFR should notbe used for medication dosing. ID Date Data Source [id number] 12/05/2020 07:19:00 PM EDT [facility] Name Value Range Interpretation Code Description Data Lydia rce(s) Supporting Document(s) ESTRADIOL @ 23 pg/mL Laboratory [facility] ESTRADIOL REFERENCE RANGE: MENSTRUATING FEMALES FOLLICULAR PHASE 21-165 PG/ML MIDCYCLE 50-367 PG/ML LUTEAL PHASE 40-259 PG/ML POSTMENOPAUSAL <40 PG/ML ID Date Data Source [id number] 12/05/2020 07:19:00 PM EDT [facility] Name Value Range Interpretation Code Description Data Lydia rce(s) Supporting Document(s) FSH @ 46.8 mIU/mL [facility] FSH Reference Range:Males 0. 7 - 10.8 mIU/mLFemales, Menstruating Follicular Phase 2.3 - 12.6 mIU/mL Mid cycle Peak 5.2 - 17.5 mIU/mL Luteal Phase 1.7 - 12.9 mIU/mLFemales, Postmenopausal On Menopausal Hormone Therapy (MHT) 5.9 - 72.8 mIU/mL Not on MHT 12.7 - 132.2 mIU/mL ID Date Data Source [id number] 12/05/2020 07:19:00 PM EDT [facility] Name Value Range Interpretation Code Description Data Lydia rce(s) Supporting Document(s) PROGESTERONE @ 1.51 ng/mL [facility] PROGESTERONE REFERENCE RANGE:MALE <1.97 NG/MLFEMALEMENSTRUATING FOLLICULAR 0.21 - 1.70 NG/ML LUTEAL 2.25 - 24.20 NG/ML MID-LUTEAL 8.76 - 21.60 NG/MLPOSTMENOPAUSAL < 0.90 NG/ML 1ST TRIMESTER 11.40 - 41.00 NG/ML 2ND TRIMESTER 13.80 - 156.00 NG/ML 3RD TRIMESTER >51.40 NG/ML ID Date Data Source [id number] 12/14/2020 07:24:40 PM EDT Laboratory [facility] [employer] Name Value Range Interpretation Code Description Data Lydia rce(s) Supporting Document(s) TESTOSTERONE 68 H Laboratory [facility] Reference range: 9 to 55Unit: ng/dL Tota l Testosterone, Females 18 years and older Premenopausal 9-55 ng/dL Postmenopausal 5-32 ng/dL REFERENCE INTERVAL: Testosterone, LC-MS/MS Access complete set of age- and/or gender-specific reference intervals for this test in the [employer] ([employer]). This test was developed and its performance characteristics determined by [facility]. It has not been cleared or approved by the US Food and Drug Administration. This test was performed in a CLIA certified laboratory and is intended for clinical purposes. SEX BINDING GLOBULIN 40 nmol/L [facility] Reference range: 30 to 135Unit: nmol/L R EFERENCE INTERVAL: Sex Hormone Binding Globulin Access complete set of age- and/or gender-specific reference intervals for this test in the [employer] Test Directory ([employer]). TESTOSTERONE FREE 10.2 H Laboratory [facility] Reference range: 0.6 to 3.8Unit: pg/mL T o convert to pmol/L, multiply pg/mL by 3.47 The concentration of Free Testosterone is derived from a mathematical expression based on the constant for the binding of testosterone to sex hormone binding globulin. REFERENCE INTERVAL: Testosterone, Free LC-MS/MS Access complete set of age- and/or gender-specific reference intervals for this test in the [employer] Test Directory ([employer]). This test was developed and its performance characteristics determined by [facility]. It has not been cleared or approved by the US Food and Drug Administration. This test was performed in a CLIA certified laboratory and is intended for clinical purposes. Performed By: [facility] [address] [place] [id number] Brim Stretching Machine Operator: Catherine Carlin MD ID Date Data Source [id number] 10/22/2020 09:26:00 AM EDT [facility] Name Value Range Interpretation Code Description Data Lydia rce(s) Supporting Document(s) SARS-CoV-2 RNA Resp Ql ELOISA+probe Negative [facility] This lab was ordered by [facility] and reported by [employer]. ID Date Data Source [id number] 07/28/2020 12:00:00 AM EST [facility] Name Value Range Interpretation Code Description Data Lydia rce(s) Supporting Document(s) qPCR (KgtjqobUozFxzrBFQC-PdD-6 Assay) [facility] This lab was ordered by [facility] and reported by [employer]. ID Date Data Source [id number] 07/20/2020 12:00:00 AM EST [facility] Name Value Range Interpretation Code Description Data Lydia rce(s) Supporting Document(s) SARS coronavirus 2 Ag [facility] This lab was ordered by [facility] and reported by [facility]. ID Date Data Source [id number] 05/16/2020 11:34:10 AM EDT [facility] Name Value Range Interpretation Code Description Data Lydia rce(s) Supporting Document(s) Progress Note [facility] KLAVNu3uMnAMFfSf04/WKMxsCQPlm5IvSSbiFFe1HRhsLMHgO3SiBRV5xO4bEVN4BKsFKmNbUgHxNKM7 [facility] [file] ohiEgxAHRW+tuk/24LAgfwN499bzW1/Lucía/EZ37DGDivd/p6erxuo64YLvVgEftSMCKjo7ovL9i1KDn7 [file] AgICAgICAgICAgICAgICAgICAgICAgICAgICAgICAg ICAgICAgICAgICAgICAgICAgICAgICAgICAgICAgICAgDQogICAgICAgICAgICAgICAgICAgICAgICAg ICAgICAgICAgICAgICAgICAgICAgICAgICAgICAgICAgICAgICAgICAgICAgICAgICAgICAgICAgICAg ICAgICAgICAgICAgICAgDQogICAgICAgICAgICAgIC AgICAgICAgICAgICAgICAgICAgICAgICAgICAgICAgICAgICAgICAgICAgICAgICAgICAgICAgICAgIC AgICAgICAgICAgICAgICAgICAgICAgICAgDQogICAgICAgICAgICAgICAgICAgICAgICAgICAgICAgIC AgICAgICAgICAgICAgICAgICAgICAgICAgICAgICAg ICAgICAgICAgICAgICAgICAgICAgICAgICAgICAgICAgICAgDQogICAgICAgICAgICAgICAgICAgICAg ICAgICAgICAgICAgICAgICAgICAgICAgICAgICAgICAgICAgICAgICAgICAgICAgICAgICAgICAgICAg ICAgICAgICAgICAgICAgICAgDQogICAgICAgICAgIC AgICAgICAgICAgICAgICAgICAgICAgICAgICAgICAgICAgICAgICAgICAgICAgICAgICAgICAgICAgIC AgICAgICAgICAgICAgICAgICAgICAgICAgICAgDQogICAgICAgICAgICAgICAgICAgICAgICAgICAgIC AgICAgICAgICAgICAgICAgICAgICAgICAgICAgICAg ICAgICAgICAgICAgICAgICAgICAgICAgICAgICAgICAgICAgICAgDQogICAgICAgICAgICAgICAgICAg ICAgICAgICAgICAgICAgICAgICAgICAgICAgICAgICAgICAgICAgICAgICAgICAgICAgICAgICAgICAg ICAgICAgICAgICAgICAgICAgICAgDQogICAgICAgIC AgICAgICAgICAgICAgICAgICAgICAgICAgICAgICAgICAgICAgICAgICAgICAgICAgICAgICAgICAgIC AgICAgICAgICAgICAgICAgICAgICAgICAgICAgICAgDQogICAgICAgICAgICAgICAgICAgICAgICAgIC AgICAgICAgICAgICAgICAgICAgICAgICAgICAgICAg HRVsQZBjUDNvJEVeBKEdCOBkZGEfAXYdTOSdKNBpFVPfIKTrIYGfUGSlCVy2T6ylYFMbBLVlUC2zBZw2 Jz8+HXpSImMeBWJ8tdRezI3YOK1zb2NvEGrvVGIqz8FsDZt8SF5GYUQhGIiwLW6MZHyohz5AOWBnZIJb eEIUl7ckEiHoBMB2RBCcMoptMT3KWDDlL1eshuHrJB RsXVUYBD4STlCiC4MhfX62PMCFPp0+CDqmnwExWgbEDqM9YXNny4MpBOv7FY7WBZRwWmyci3GnXxRgTV CAWZuiVQ6QTEQ6UIQoVIOaRb8CRVDqF562zdInVU7GTs5OEfErXK7luu1TBwKbAFOpYmxVMdf3VFsgES 4QaFWgZYaAut7yggDwhtGNc1EsdkYiqKCUYGHqrYFG QJKiKIFeDMpuUVOIPmBpqZCsUJ5lWC6eENYyYBQmLhP7FLEVZR9ZGBZsMGAmaUVpFTXiAORRHV3ZXDbd AWT6UCMjmxEalTFxDIylCB5FCOOdtuIdUIjyDCQMTSo+Mq2AAN4mm8UpHStiEKKgOJ7wyi0DMKrXQbIv P7D0wNPpK2Y1JDurRc4OGWZbHVJxLHwgJBXVWRujMZ 8VOJ6rqrE4BL6FfOWqIRXzURXawAPeQBm0T49plXIkKRpfMX1MFFY+Puneet+Ho1XLZDeVJQbKJQkXqInVF EJIbXvJ0ZxB5UCc0OhJ2AuBZ48jVvfrnEiTPbrUP4OXL1tSLVbUKFIKH9XmIKqcZ2wmcDdDJXuJTCXGg SxA28pdOYiMBJpFLS6EOTeNr7FPEYuF8SwtuEbwMqk spKcOMJjZANTOS9VWLnasoKmjRAeoBeyYY28lHkdDS9GZu2TMoUnBF5xje8NcJCwOg4AHVPqAf0TVUIn DLNmHDIoMNH9GJSgKrRtJEkgFJQmRSQzCOA0LDQwUTYaHY6LRxTiZOUgRPnyPYQaBFXwUHZpcs6KEDRk OFDrXLu3GqTbCHUxSFUnLRllDTYnRSHaADI9AQEcBW CsDR6XPoZjQRGqRBH0SUJlUDQyURMxwx4SRUOfBJNqYlO7WYToSQJeAFVzWZjfSXTpAVQiANAhRPQlPN NeYJ7VSeBqRTElASIgDwgbBVWtCZQpfv9HONQvTNJyVfVjPTKbOIDdXBJoGZrsSJItKMW5JOq4LDHkLX OqYY3DYlVkWBPaCYC4YfyrACZjTNZezt4OOVHnUCYj JAf5YtZqZQJoDBCxXQxxPEWuVWB0SfVrQEGwHVGzIH3FPfZsYZTfDVV9TomhSSWbWXMbta4FZEHkCNMa Tzq2AnOmVNXcZZCiHIsrAMOtIXG7BQo1DHQlIXJqEO9ISfIeWSFtCHmfDrXwYHPzCLVmqu5QWXCcZYMj WfKdToItXOQdMLIfZPunQMXsFJE1SNbtLLLjNTEmEF 2KDwSnJLUeJNfhIHOqXOSoFNNerd4RPTVqATHtYRE8WzMoJRXfMRFsTTz3zhMkvNLbKBh6LC3EM5Xxpt ImMuXJOz3Qz688SCWuIGHdTx3JT2coKt6mLBIiXHJPYk7GRUj5FNxcJREbKAR6RLC2BCJsGuPiVLMmNQ z8XRSsVTNnJpe+BWc5Z5VvITQyFTIcUvz4ANBsZzB2 SlOyCxRdUVE5RLFwKC5pHYBDKu2+TPidgNAvaSrcVCKXPaA6CZM7FAeaQRCQRz6J ID Date Data Source [id number] 05/17/2020 12:45:22 PM EDT [facility] Name Value Range Interpretation Code Description Data Lydia rce(s) Supporting Document(s) Specimen source [Identifier] of Unspecified specimen [facility] SARS-CoV-2 RNA 2018 nCoV Real-Time RT-PCR: NOT DETECTED [facility] Assay Performed [facility] Initial validation was performed by the Centers for Disease Control and Prevention (CDC) and additionally validated by the Dept. of Pathology [facility]. Negative results do not preclude SARS-CoV-2 infection and should not be used as the sole basis for patient management decisions.Additional information is available on the following FDA websites for health care providers and patients. https://www.fda.gov/media/601115/download, https://www.fda.gov/media/141114/download. Patients first test for condition [facility] Patient employed in healthcare setting [facility] Patient has symptoms related to condition [facility] When did you start to experience these symptoms [Date and time] [Phen X] [facility] Patient was hospitalized because of this condition [facility] patient was admitted to ICU for condition [facility] Patient resides in a congregate care setting [facility] status [facility] ID Date Data Source [id number] 05/16/2020 11:34:00 AM EDT [facility] Name Value Range Interpretation Code Description Data Lydia rce(s) Supporting Document(s) SARS-CoV-2 RNA [facility] This lab was ordered by [facility] and reported by [facility]. ID Date Data Source [id number] 05/02/2020 06:13:24 PM EDT [facility] LABORATORY [facility] [address] [place], [place] [address]Dsf# Surgical Pathology ReportAccession #:[id number](s) ReceivedA: Gastric body polyp bxB: Antrum bxsClinical Diagnosis and HistoryGastric polyps, GERD, r/o H. pylori DIAGNOSISA. POLYP, GASTRIC BODY, BIOPSY: BENIGN FUNDIC GLAND POLYP. NO ADENOMATOUS CHANGE OR DYSPLASIAIS SEEN.B. STOMACH, ANTRUM, BIOPSY: BENIGN GASTRIC ANTRAL TYPE MUCOSA WITH VASCULAR CONGESTION. NOINTESTINAL METAPLASIA, DYSPLASIA, OR H. PYLORI ORGANISMS ARE IDENTIFIED. Gross DescriptionPart A. Received in formalin labeled "gastric body polyp biopsy" is a 0.3cm mckeon-pink irregular fragment of tissue. Entirely submitted as A1. Multilevel. Part B. Received in formalin labeled "antrum biopsies rule out H. pylori"is a 0.3 cm mckeon-pink irregular fragment of tissue. Entirely submitted asB1. Multilevel. pacheco/neo Reported: 05/02/2020Electronically Signed Out By Asia Wyatt MD [facility], [place] [address]ofvEfzyaqjkt component performed at [facility], Histopathology, [address] [place] [address], [id number].Reported at [facility], [address] [place], [place], [address]. This report may includeimmunohistochemical or in-situ hybridization results. Testing wasdeveloped and the performance characteristics determined by [facility] as required by CLIA '88. The FDA hasdetermined that approval for specific use is not necessary for clinicaluse. The quality of Hematoxylin and Eosin stains and as applicable, forall immunohistochemical and/or special stains, including positive andnegative controls, were reviewed and considered appropriate.ICD codes K31.7CPT codesA: 96528GG: 03371P Name Value Range Interpretation Code Description Data Lydia rce(s) Supporting Document(s) ID Date Data Source [id number] 05/01/2020 08:51:38 AM EDT [facility] [facility] CenterPATIE NT INFORMATIONPatient MRN Name Date of Age Gend*PT [id number] Helga Hu 1960 59 years F OPPT Location Admission Date/Time Visit ID Attending ProviderEndo [place] 05/01/20 0752 --- Doron Mabry MD([id number]) EPI ID CSN Admitting Provider [id number] Doron Mabry MD([id number])Endoscopic Esophagogastroduodenoscopy Procedure NotePatient: Helga AldricherMRN: [id number] Date: 05/01/2020Surgeon(s):AYDE Hannahre- operative Diagnosis:Gastroesophageal reflux disease [K21.9]Post-Op Diagnosis Codes: * Gastroesophageal reflux disease [K21.9]Procedure: 1) Esophagogastroduodenoscopy 2) Biopsy of fundic polyps and antral bx fro H. PyloriAnesthesia/Sedation: General Anesthesia (see anesthesia report).Findings: Normal esophagus, regular Z-line, multiple polyps - proximal body andfundus, normal duodenum up to [id number]:ID Type Source Tests Collected by [facility] : Gastric body polyp BXS Tissue Biopsy SURGICAL PATHOLOGY EXAM MD Yola 05/01/2020 0844B : Antrum BXS r/o H. Pylori Tissue Biopsy SURGICAL PATHOLOGY EXAM MD Yola 05/01/2020 0846Estimated Blood Loss: minimalStents/Grafts: noneComplications: noneDisposition: Stable to recovery room.Indications for Procedure/Consent: This is a 59 years female with morbidobesity. She is scheduled to undergo bariatric surgery. An upper endoscopy wasindicated prior to proceeding with surgery. After obtaining history andperforming the physical examination, the procedure, indications, p otentialcomplications, including but not limited to bleeding, perforation, infection,adverse medication reaction, and alternatives were explained to the patient.Patient appeared to understand the benefits and risks of this procedure.Informed consent was obtained from the patient after providing opportunity forquestions.Procedure Details:The gastroscope was inserted into the mouth and advanced under directvisualization to second portion of the duodenum. A careful inspection was madeas the gastroscope was withdrawn, including a retroflexed view of the proximalstomach; findings and interventions are d escribed above. After completion of theexamination, the patient was transferred to the recovery room.Impression:Normal esophagus, regular Z-line, multiple polyps - proximal body and fundus,normal duodenum up to [id number]:-Await pathology.-Follow up with me.Signature: JONH Hannahate: May 01, 2020Time: 8:50 AMCC: Doron Mabry [facility]: PCP PROVIDER REQUESTED Name Value Range Interpretation Code Description Data Lydia rce(s) Supporting Document(s) ID Date Data Source [id number] 05/01/2020 08:15:19 AM EDT [facility]Patient [facility] Name Date of Age Gend*PT [id number] Helga Hu 1960 59 years F OPPT Location Admission Date/Time Visit ID Attending ProviderEndo [place] 05/01/20 0752 --- Doron Mabry MD([id number]) EPI ID CSN Admitting Provider [id number] Doron Mabry MD([id number])Pre- Procedure History and Physical:The history and physical were reviewed and the patient was examined.There are no changes to the H&P.Doron Mabry MD05/01/20 8:15 AM Name Value Range Interpretation Code Description Data Lydia rce(s) Supporting Document(s) ID Date Data Source [id number] 04/27/2020 08:14:00 AM EDT [facility] Name Value Range Interpretation Code Description Data Lydia rce(s) Supporting Document(s) SARS coronavirus 2 RNA [facility] This lab was ordered by [facility] and reported by [facility]. ID Date Data Source [id number] 04/28/2020 01:07:26 PM EDT [facility] Name Value Range Interpretation Code Description Data Lydia rce(s) Supporting Document(s) SARS-COV-2 ELOISA [facility] Not DetectedReference range: Not Detecte d This nucleic acid amplification test was developed and its performance characteristics determined by [employer]. Nucleic acid amplification tests include PCR and TMA. This test has not been FDA cleared or approved. This test has been authorized by FDA under an Emergency Use Authorization (EUA). This test is only authorized for the duration of time the declaration that circumstances exist justifying the authorization of the emergency use of in vitro diagnostic tests for detection of SARS-CoV-2 virus and/or diagnosis of COVID-19 infection under section 564(b)(1) of the Act, 21 U.S.C. 360bbb-3(b) (1), unless the authorization is terminated or revoked sooner. When diagnostic testing is negative, the possibility of a false negative result should be considered in the context of a patient's recent exposures and the presence of clinical signs and symptoms consistent with COVID- 19. An individual without symptoms of COVID- 19 and who is not shedding SARS -CoV-2 virus would expect to have a negative (not detected) result in this assay. Performed At: [facility] [id number] José Manuel Araujo MD Ph:[phone] Procedure Social History Code Duration Value Status Description Data Source(s ) Smoking 01/29/2021 12:00:00 AM EDT Never Smoker completed Never S mojimi eCW1 ([facility]) Smoking 01/29/2021 12:00:00 AM EDT Never Smoker completed Never S riccardo eCW1 ([facility]) Alcohol intake 01/18/2021 12:00:00 AM EDT Current drinker of al cohol (finding) completed Current drinker of alcohol (finding) [facility] Alcohol intake 01/08/2021 12:00:00 AM EDT Current drinker of al cohol (finding) completed Current drinker of alcohol (finding) [facility] Smoking 07/20/2020 12:00:00 AM EST Patient has never smoked co mpleted Patient has never smoked MEDENT ([facility]) Tobacco use and exposure 05/01/2020 12:00:00 AM EDT Never used co mpleted Never used [facility] Smoking 05/01/2020 12:00:00 AM EDT Never smoker completed Never [facility] Alcohol intake 05/01/2020 12:00:00 AM EDT Yes completed [facility] Smoking 05/01/2020 12:00:00 AM EDT Never smoker completed Never [facility] Vital Signs ID Date Data Source UNK Name Value Range Interpretation Code Description Data Source(s) Body weight 224 [lb_av] 224 [lb_av] eCW1 ([facility]) Body height [in_i] W1 ([facility]) Body mass index (BMI) [Ratio] 38.45 kg/m2 38.45 kg/m2 [facility] ([facility]) Body weight 224.4 [lb_av] 224.4 [lb_av] W1 ([facility]) Body height [in_i] eCW1 ([facility]) Body mass index (BMI) [Ratio] 38.51 kg/m2 38.51 kg/m2 W1 ([facility]) Body mass index (BMI) [Ratio] 38.1 kg/m2 38.1 k g/m2 MEDENT ([facility]) Systolic blood pressure 101 mm[Hg] 101 mm[Hg] M EDENT ([facility]) Diastolic blood pressure 70 mm[Hg] 70 mm[Hg] [facility] Heart rate 85 /min 85 /min MED[facility] ([facility]) Respiratory rate 16 /min 16 /min [facility] ( [facility], [facility]) Oxygen saturation in Arterial blood by Pulse oximetry 94 % 94 % [facility] ([facility], [facility]) Body temperature 98.8 [degF] 98.8 [degF] [facility] ([facility], [facility]) Body weight 222.00 [lb_av] 222.00 [lb_av] MEDEN T ([facility], [facility]) Body height 64 [in_i] 64 [in_i] [facility] ([facility], [facility]) 5'4" Systolic blood pressure 109 mm[Hg] 109 mm[Hg] [facility] Diastolic blood pressure 64 mm[Hg] 64 mm[Hg] [facility] Heart rate 52 /min 52 /min [facility] Body temperature 36.78 Debbi 36.78 Debbi [facility] Respiratory rate 16 /min 16 /min [facility] Oxygen saturation in Arterial blood by Pulse oximetry 98 % 98 % [facility] Body height 162.6 cm 162.6 cm [facility] Body weight 104.1 kg 104.1 kg [facility] Body mass index (BMI) [Ratio] 39.39 kg/m2 39.39 kg/m2 [facility] Systolic blood pressure 127 mm[Hg] 127 mm[Hg] [facility] Diastolic blood pressure 74 mm[Hg] 74 mm[Hg] [facility] Heart rate 66 /min 66 /min [facility] Body height 162.6 cm 162.6 cm [facility] Body weight 109.544 kg 109.544 kg [facility] Body mass index (BMI) [Ratio] 41.45 kg/m2 41.45 kg/m2 [facility] Oxygen saturation in Arterial blood by Pulse oximetry 95 % 95 % [facility] Respiratory rate 16 /min 16 /min [facility] ( [facility], [facility]) Systolic blood pressure 128 mm[Hg] 128 mm[Hg] M EDENT ([facility], [facility]) Diastolic blood pressure 82 mm[Hg] 82 mm[Hg] [facility]) Heart rate 73 /min 73 /min [facility] ([facility], [facility]) Oxygen saturation in Arterial blood by Pulse oximetry 99 % 99 % [facility] ([facility], [facility]) Body temperature 97.5 [degF] 97.5 [degF] [facility] ([facility], [facility]) Body weight 220.00 [lb_av] 220.00 [lb_av] MEDEN T ([facility], [facility]) Body height 64 [in_i] 64 [in_i] [facility] ([facility]) 5'4" Body mass index (BMI) [Ratio] 37.8 kg/m2 37.8 k g/m2 [facility] ([facility]) Systolic blood pressure 132 mm[Hg] 132 mm[Hg] [facility] Respiratory rate 16 /min 16 /min [facility] Oxygen saturation in Arterial blood by Pulse oximetry 98 % 98 % [facility] Diastolic blood pressure 86 mm[Hg] 86 mm[Hg] [facility] Heart rate 63 /min 63 /min [facility] Body temperature 36.56 Debbi 36.56 Debbi [facility] Body height 162.6 cm 162.6 cm [facility] Body mass index (BMI) [Ratio] 37.93 kg/m2 37.93 kg/m2 [facility] Body weight 100.245 kg 100.245 kg [facility] Patient Treatment Plan of Care Planned Activity Planned Date Details Description Data Source (s) ondansetron (ZOFRAN-ODT) disintegrating tablet 8 mg 01/19/20 06:00:00 AM EDT [facility] Acetaminophen 325 MG Oral Tablet 01/18/2021 12:00:00 AM EDT [facility] Ascorbic Acid 60 MG / Beta Carotene 5000 UNT / Copper Sulfate 40 MG / dl-alpha tocopheryl acetate 30 UNT / Sodium Selenite 0.04 MG / Zinc Oxide 40 MG Oral Tablet 01/18/2021 12:00:00 AM EDT [facility] Vitamin B 12 0.5 MG Oral Tablet 01/18/2021 12:00:00 AM EDT [facility] 0.4 ML Enoxaparin sodium 100 MG/ML Prefilled Syringe 021 12:00:00 AM EDT [facility] Simethicone 80 MG Chewable Tablet 01/18/2021 12:00:00 AM EDT [facility] Ascorbic Acid 60 MG / Beta Carotene 5000 UNT / Copper Sulfate 40 MG / dl-alpha tocopheryl acetate 30 UNT / Sodium Selenite 0.04 MG / Zinc Oxide 40 MG Oral Tablet 01/18/2021 12:00:00 AM EDT [facility] Vitamin B 12 0.5 MG Oral Tablet 01/18/2021 12:00:00 AM EDT [facility] Ondansetron 4 MG Disintegrating Oral Tablet 01/18/2021 12:00:00 AM EDT [facility] 0.4 ML Enoxaparin sodium 100 MG/ML Prefilled Syringe 021 12:00:00 AM EDT [facility] Acetaminophen 325 MG Oral Tablet 01/18/2021 12:00:00 AM EDT [facility] Omeprazole 20 MG Delayed Release Oral Capsule 01/18/2021 12:00:00 A M EDT [facility] normal saline flush 0.9 % injection 3 mL 01/17/2021 10:00:00 PM EDT [facility] metoclopramide (REGLAN) injection 10 mg 01/17/2021 04:55:19 PM EDT [facility] Prochlorperazine 10 MG Oral Tablet 01/17/2021 04:55:18 PM EDT [facility] Promethazine Hydrochloride 25 MG Oral Tablet 01/17/2021 04:55:18 PM EDT [facility] Oxycodone Hydrochloride 5 MG Oral Tablet 01/17/2021 04:55:18 PM EDT [facility] enalaprilat (VASOTEC) injection 1.25 mg 01/17/2021 04:55:17 PM EDT [facility] 0.4 ML Enoxaparin sodium 100 MG/ML Prefilled Syringe 021 04:55:17 PM EDT [facility] Clonidine Hydrochloride 0.1 MG Oral Tablet 01/17/2021 04:55:16 PM E DT [facility] Ondansetron 4 MG Disintegrating Oral Tablet [facility] Omeprazole 20 MG Delayed Release Oral Capsule [facility]
[2021-06-24 12:44] LABS: BASO % 0.2 % (0.0-1.0); EOS # 0.2 10^3/uL (0.0-0.5); EOS % 2.3 % (0.0-3.0); HEMATOCRIT 37.8 % (36.0-47.0); HEMOGLOBIN 12.4 g/dl (12.0-15.5); LYMPH # 1.2 10^3/uL (1.5-5.0); LYMPH % 11.5 % (24.0-44.0); MEAN CORPUSCULAR HEMOGLOBIN 33.7 pg (27.0-33.0); MEAN CORPUSCULAR HGB CONC 32.8 g/dl (32.0-36.5); MEAN CORPUSCULAR VOLUME 102.7 fl (80.0-96.0); MONO # 0.9 10^3/uL (0.0-0.8); MONO % 8.5 % (2.0-8.0); NEUTROPHILS % 77.2 % (36.0-66.0); PLATELET COUNT, AUTOMATED 315 10^3/uL (150-450); RED BLOOD COUNT 3.68 10^6/uL (4.00-5.40); WHITE BLOOD COUNT 10.3 10^3/uL (4.0-10.0)
--- NOTE | 2021-06-24 13:16 | REP ---
INDICATION: ABD PAIN, HX OF STONE. COMPARISON: 09/16/2012 TECHNIQUE: Real-time sonographic evaluation of the right upper quadrant with Doppler FINDINGS: Multiple ultrasonographic images of the liver show the hepatic parenchymal echo texture to appear unremarkable. There are no focal masses. There is no intrahepatic ductal dilatation. The common bile duct measures 3 mm in its greatest transverse dimension. Multiple ultrasonographic images of the gallbladder show multiple echogenic foci within the gallbladder lumen which casts acoustic shadows. There is no gallbladder wall thickening or pericholecystic edema. Images of the pancreatic region show no gross abnormality. The imaged portion of the right kidney is unremarkable. IMPRESSION: Cholelithiasis. Accredited by the [employer] in General Ultrasound. <Electronically signed by Rodger Matta > 06/24/21 [id number]
[2021-06-24 13:21] LABS: ALBUMIN 2.9 GM/DL (3.2-5.2); ALT/SGPT 37 U/L (12-78); BILIRUBIN,DIRECT 0.2 MG/DL (0.0-0.2); BILIRUBIN,TOTAL 0.5 MG/DL (0.2-1.0); BLOOD UREA NITROGEN 11 MG/DL (7-18); CALCIUM LEVEL 9.6 MG/DL (8.5-10.1); CARBON DIOXIDE LEVEL 30 MEQ/L (21-32); CHLORIDE LEVEL 102 MEQ/L (98-107); CREATININE FOR GFR 0.85 MG/DL (0.55-1.30); GLOMERULAR FILTRATION RATE > 60.0 (>51); GLUCOSE, FASTING 104 MG/DL (70-100); LIPASE 100 U/L (73-393); POTASSIUM SERUM 4.1 MEQ/L (3.5-5.1); SODIUM LEVEL 139 MEQ/L (136-145)
[2021-06-24] MEDS ORDERED: ISOVUE-370 76% 100ML VIAL As Ordered ONE (15:45)
--- NOTE | 2021-06-24 16:12 | REP ---
INDICATION: bilateral flank pain. COMPARISON: 01/13/2014 the latest prior TECHNIQUE: Standard helical technique after the intravenous administration of 100 cc Isovue 370 FINDINGS: There is a 1.6 cm sized asymmetric density in the left lung base medial basal segment representing a change from the prior CT of the chest of 01/25/2021. The liver, gallbladder, spleen, pancreas, adrenal glands, and kidneys are within normal limits. The abdominal aorta and para-aortic regions are within normal limits. The bowel loops and the mesenteries are within normal limits. A left upper quadrant postoperative changes. There is no evidence of a mass or adenopathy. There is no free fluid or free air. Bone window technique throughout the examination shows no significant change in appearance of the osseous structures. IMPRESSION: There is a new left lung base opacity as described above likely representing subsegmental atelectatic change. There is no evidence of acute intraabdominal or intrapelvic disease. Findings as described above. <Electronically signed by Rodger Matta > 06/24/21 [id number]
--- OUTSIDE RECORDS SUMMARY | 2021-06-24 16:29 | CCD ---
Author Author [facility] Organization [facility] Address Unknown Phone Unavailable Care Team Providers Care Funeral Home Director Name Role Phone Torres, Alisa FRONT DESK ADMIN Unavailable Unavailable Torres, Ailsa FRONT DESK ADMIN Unavailable Unavailable Torres, Alisa FRONT DESK ADMIN Unavailable Unavailable Torres, Alisa FRONT DESK ADMIN Unavailable Unavailable Torres, Alisa FRONT DESK ADMIN Unavailable Unavailable Torres, Alisa FRONT DESK ADMIN Unavailable Unavailable Torres, Alisa FRONT DESK ADMIN Unavailable Unavailable Torres, Alisa FRONT DESK ADMIN Unavailable Unavailable Torres, Alisa FRONT DESK ADMIN Unavailable Unavailable Torres, Alisa FRONT DESK ADMIN Unavailable Unavailable Torres, Alisa FRONT DESK ADMIN Unavailable Unavailable Torres, Alisa FRONT DESK ADMIN Unavailable Unavailable Torres, Alisa FRONT DESK ADMIN Unavailable Unavailable Kim Medina PA Unavailable Unavailable [...] Unavailable Unavailable Commey, Enmanuel Unavailable Unavailable Commey, Enmnauel Unavailable Unavailable Commey, Enmanuel Unavailable Unavailable Commey, [...] is protected by Article 27-F of the [facility] [place] Public Health law. If you continue you may have access to information: Regarding HIV / AIDS; Provided by facilities licensed or operated by the [facility] [place] Office of Mental Health; or Provided by the [facility] [place] Office for People With Developmental Disabilities. If such information is present, then the following [facility] [place] mandated warning applies: This information has been [...] law may result in a fine or correction sentence or both. A general authorization for the release of medical or other information is NOT sufficient authorization for further disc losure. Allergies and Adverse Reactions Type Description Substance Reaction Status Data Source(s ) Propensity to adverse reactions NO KNOWN ALLERGIES NO KNOWN ALLERGIES [facility] Drug Allergy NKDA NKDA [facility] ([facility]) Family History Family Member Name Family Member Gender Family Member Status Date o f Status Description Data Source(s) Unknown Unknown Problem [facility] ([facility], [facility]) Encounters Encounter Providers Location Date Indications Data Source(s ) Outpatient Referrer: ASIA JUDD MD 05/29/2021 01:25:5 5 PM EDT [facility] TeleMedicine Phone E/M by Phys 11-20 Min [address] [place] [address] 02/01/2021 12:00:00 AM EDT eCW1 (On license of [facility]) TeleMedicine Phone E/M by Phys 11-20 Min [address] [place] [address] 01/29/2021 12:00:00 AM EDT eCW1 (On license of [facility]) Outpatient Attender: Alisa melgoza 01/25/2021 04:10:00 PM EDT [facility] ([facility]) Outpatient Admitter: Enmanuel Riggins MOB-MOB.PAT 2020 07:57:04 AM EDT - 01/12/2021 07:57:06 AM EDT [facility] Outpatient Attender: Enmanuel RigginsAdmitter: Enmanuel Lopez jany MOB-MOB.PAT 01/08/2021 02:20:06 PM EDT - 01/08/2021 03:30:38 PM EDT [facility] Inpatient Attender: Enmanuel RigginsAdmitter: Enmanuel Lopez jany [id number] 12/27/2020 02:55:38 PM EDT - 01/18/2021 03:24:00 PM EDT [facility] Patient discharged. Outpatient Attender: Jelena rosales 07/20/2020 10:15:00 AM EST [facility] ([facility]) Outpatient Attender: OMEGA OSBORN [id number] 12:00:00 AM EDT - 05/17/2020 12:00:00 AM EDT [facility] Outpatient Referrer: Doron WITT-MOB.PAT 04/27 11:04:03 AM EDT - 04/27/2020 11:04:06 AM EDT [facility] Outpatient Attender: Doron MabryAdmitter: Doron hanson ES1-[id number].EU 04/23/2020 01:58:50 PM EDT - 05/01/2020 09:15:00 AM EDT [facility] Patient discharged. Immunizations Vaccine Date Status [...] EVERY 8 HOURS NEEDED NAUSEA SOLD: 04/14/2021 [facility] NITROFURANTOIN, MACROCRYSTALS 25 MG / Ni trofurantoin, Monohydrate 75 MG Oral Capsule 100 mg NITROFURANTOIN MONOHYD/M-CRYST 04/06/2021 12:00:00 AM EDT ca psule 14 TAKE ONE CAPSULE BY MOUTH EVERY 12 HOURS FOR 7 DAYS TAKE ONE CAPSULE BY MOUTH EVERY 12 HOURS FOR 7 DAYS SOLD: 04/06/2021 [facility] Cephalexin 500 MG Oral Capsule CEPHALEXIN 03/17/2021 12:00:00 AM EDT capsule 14 TAKE ONE CAPSULE BY MOUTH TWICE A DAY FOR 7 DAYS TAKE ONE CAPSULE BY MOUTH TWICE A DAY FOR 7 DAYS SOLD: 03/17/2021 [facility] Polymyxin B 06823 UNT/ML / Trimethoprim 1 MG/ML Ophthalmic Solution 10,000 unit- 1 mg/mL POLYMYXIN B SULF/TRIMETHOPRIM 03/06/2021 12:00:00 AM EDT drops 1 0 INSTILL ONE TO TWO DROPS INTO THE AFFECTED EYS FOUR TIMES A DAY FOR 7 DAYS INSTILL ONE TO TWO DROPS INTO THE AFFECTED EYS FOUR TIMES A DAY FOR 7 DAYS SOLD: 03/07/2021 [facility] 100 mg 01/26/2021 12:00:00 AM EDT capsule 14 TAKE ONE CAPSULE BY MOUTH TWICE A DAY FOR 7 DAYS TAKE ONE CAPSULE BY MOUTH TWICE A DAY FOR 7 DAYS SOLD: 01/28/2021 [facility] 24 HR metoprolol succinate 50 MG Extende d Release Oral Tablet metoprolol succinate (TOPROL-XL) 24 hr tablet 50 mg metoprolol succinate (TOPROL-XL) 24 hr tablet 50 mg 01/18/2021 09:00:00 AM EDT 50 mg Oral activ e 50 mg, Oral, Daily, First dose on Thu01/18/21 at 0900 [facility] Medication administered onsite 24 HR metoprolol succinate 25 MG Extende d Release Oral Tablet metoprolol succinate (TOPROL-XL) 24 hr tablet 25 mg metoprolol succinate (TOPROL-XL) 24 hr tablet 25 mg 01/18/2021 09:00:00 AM EDT 25 mg Oral activ e 25 mg, Oral, Daily, First dose on Thu01/18/21 at 0900 [facility] Medication administered onsite lactated ringers bolus 1,000 mL [id number] 01/18/2021 06:00:00 AM EDT 1000 mL Intravenous completed 1,000 mL , Intravenous, Administer over 2 Hours, Once, On Thu01/18/21 at 0600, For 1 dose, Post-op [facility] Medication administered onsite ondansetron (ZOFRAN-ODT) disintegrating [...] at 0600, Post- op [Order 2 End] [facility] Medication administered onsite 80 mg 01/18/2021 [...]
To begin after routine doses of tylenol.
[facility] Medication administered onsite Ondansetron 4 MG Disintegrating Oral Tab let ondansetron (ZOFRAN-ODT) 4 MG disintegrating tablet ondansetron (ZOFRAN-ODT) 4 MG disintegrating tablet 01/18/2021 12:00:00 AM EDT 4 mg Oral active Take 1 tablet (4 mg total) by mouth daily [facility] Vitamin B 12 0.5 MG Oral Tablet vitamin B-12 (CYANOCOB ALAMIN) 500 MCG tablet vitamin B-12 (CYANOCOBALAMIN) 500 MCG tablet 01/18/2021 12:00:00 AM EDT 1000 ug Oral aborted Take 2 tablets (1,000 mc g total) by mouth daily [facility] Ascorbic Acid 60 MG / Beta Carotene 5000 UNT / Copper Sulfate 40 MG / dl-alpha tocopheryl acetate 30 UNT / Sodium Selenite 0.04 MG / Zinc Oxide 40 MG Oral Tablet Multiple Vitamins-Iron (multivitamin with iron) TABS Multiple Vitamins- Iron (multivitamin with iron) TABS 01/18/2021 12:00:00 AM EDT 2 {tbl} Oral aborted Take 2 tablets by mouth jory y [facility] Simethicone 80 MG Chewable Tablet simethicone (MYLICON ) 80 MG chewable tablet simethicone (MYLICON) 80 MG chewable tablet 01/18/2021 12:00:00 AM EDT 80 mg Oral active Chew 1 tablet (80 mg total) every 6 (six) hours as needed for flatulence [facility] 20 mg 01/18/2021 12:00:00 AM EDT [...] 6 (six) hours as needed for pain [facility] 0.4 ML Enoxaparin sodium 100 MG/ML Prefi lled Syringe enoxaparin (LOVENOX) 40 MG/0.4ML SOLN enoxaparin (LOVENOX) 40 MG/0.4ML SOLN 01/18/2021 12:00:00 AM EDT 40 mg Subcutaneous aborted Inject 0.4 mL (40 mg total) under the skin daily for 10 days [facility] 500 mcg 01/18/2021 12:00:00 AM EDT tablet 30 TAKE TWO TABLETS BY MOUTH EVERY DAY TAKE TWO TABLETS BY MOUTH EVERY DAY SOLD: 01/22/2021 [facility] Omeprazole 20 MG Delayed Release Oral Ca psule omeprazole (PriLOSEC) 20 MG capsule omeprazole (PriLOSEC) 20 MG capsule 01/18/2021 12:00:00 AM EDT 40 mg Oral active Take 2 capsules (40 mg total) by mouth once daily [facility] 0.4 ML Enoxaparin sodium 100 MG/ML Prefi lled Syringe enoxaparin (LOVENOX) 40 MG/0.4ML SOLN enoxaparin (LOVENOX) 40 MG/0.4ML SOLN 01/18/2021 12:00:00 AM EDT 40 mg Subcutaneous active Inject 0.4 mL (40 mg total) under the skin daily for 10 days [facility] Vitamin B 12 0.5 MG Oral Tablet vitamin B-12 (CYANOCOB ALAMIN) 500 MCG tablet vitamin B-12 (CYANOCOBALAMIN) 500 MCG tablet 01/18/2021 12:00:00 AM EDT 1000 ug Oral active Take 2 tablets (1,000 mc g total) by mouth daily [facility] Ascorbic Acid 60 MG / Beta Carotene 5000 UNT / Copper Sulfate 40 MG / dl-alpha tocopheryl acetate 30 UNT / Sodium Selenite 0.04 MG / Zinc Oxide 40 MG Oral Tablet Multiple Vitamins-Iron (multivitamin with iron) TABS Multiple Vitamins- Iron (multivitamin with iron) TABS 01/18/2021 12:00:00 AM EDT 2 {tbl} Oral active Take 2 tablets by mouth jory drew [facility] heparin (porcine) injection 5,000 Units [id number] 01/18/20 11:00:00 PM EDT 5000 U Subcutaneous active 5,000 Units , Subcutaneous, Every 8 hours (relative), First dose on Kat 01/17/21 at 2300, Post-op
If platelet count is less than 100,000 or hematocrit is less than 25, or if there is a 5 point decrea se in hematocrit, do not give the dose and call physician/designee.
[facility] Medication administered onsite normal saline flush 0.9 % injection 3 mL [id number] 01/17/2021 10:00:00 PM EDT 3 mL Intravenous active 3 mL , Intravenous, QSHIFT, First dose on Kat 01/17/21 at 2200, Post-op
Convert to saline lock after discontinuing D5LR IV.
[facility] Medication administered onsite gabapentin 300 MG Oral Capsule gabapentin (NEURONTIN) capsule 300 mg gabapentin (NEURONTIN) capsule 300 mg 01/17/2021 09:00:00 PM EDT 300 mg Oral active 300 mg, Oral, 3 times daily, First dose on Kat 01/17/21 at 2100, Post-op [facility] Medication administered onsite Simethicone 80 MG Chewable Tablet simethicone (MYLICON ) chewable tablet 80 mg simethicone (MYLICON) chewable tablet 80 mg 01/17/2021 07:00:00 PM EDT 80 mg Oral active 80 mg, Oral, E very 4 hours (scheduled), First dose on Kat 01/17/21 at 1900, Post-op [facility] Medication administered onsite pantoprazole 40 MG Delayed Release Oral Tablet pantoprazole (PROTONIX) EC tablet 40 mg pantoprazole (PROTONIX) EC tablet 40 mg 01/17/2021 06:00:00 PM E DT 40 mg Oral active Stress Ulcer Prophylaxis 40 mg, Oral, Daily, Indications: Stress Ulcer Prophylaxis, First dose on Kat 01/17/21 at 1800 [facility] Stress Ulcer Prophylaxis Medication administered onsite [...] adequate PO & convert to saline lock
[facility] Medication administered onsite Acetaminophen 500 MG Oral Tablet acetaminophen (TYLENO L) tablet 1,000 mg acetaminophen (TYLENOL) tablet 1,000 mg 01/17/2021 06:00:00 PM EDT 1000 mg Oral active 1,000 mg, Oral , Every 8 hours, First dose on Thu01/17/21 at 1800, For 48 hours, Post-op [facility] Medication administered onsite Ondansetron 4 MG Disintegrating Oral Tab let ondansetron (ZOFRAN-ODT) disintegrating tablet 8 mg ondansetron (ZOFRAN-ODT) disintegrating tablet 8 mg 01/17/2021 06:00:00 PM EDT 8 mg Oral active 8 mg, Oral, Every 6 hours (scheduled), First dose on Thu01/17/21 at 1800, For 24 hours, Post-op [facility] Medication administered onsite Insulin Lispro 100 [...] 14 units >420 16 units, Call MD
[facility] Medication administered onsite metoclopramide (REGLAN) injection [...] hours PRN for nausea
[Order 2 End] [facility] Medication administered onsite Prochlorperazine 10 MG Oral Tablet prochlorperazine (C OMPAZINE) tablet 10 mg prochlorperazine (COMPAZINE) tablet 10 mg 01/17/2021 04:55:18 PM EDT 10 mg Oral active 10 mg, Oral, E very 6 hours PRN, nausea, not relieved by metoclopramide, Starting on Kat 01/17/21 at 1655, Post-op [facility] Medication administered onsite Oxycodone Hydrochloride 5 MG Oral Tablet oxyCODONE (ROXICODONE) immediate release tablet 5 mg oxyCODONE (ROXICODONE) immediate release tablet 5 mg 01/17/2021 04:55:18 PM EDT 5 mg Oral active 5 mg, Oral, Every 4 hours PRN, severe pain (7-10), Starting on Kat 01/17/21 at 1655, For 7 days, Post-op [facility] Medication administered onsite Promethazine Hydrochloride 25 MG Oral Ta blet promethazine (PHENERGAN) tablet 12.5 mg promethazine (PHENERGAN) tablet 12.5 mg 01/17/2021 04:55:18 PM E DT 12.5 mg Oral active 12.5 mg, O ral, Every 4 hours PRN, nausea, not relieved by prochlorperazine, Starting on Kat 01/17/21 at 1655, Post-op [facility] Medication administered onsite 0.4 ML Enoxaparin sodium 100 MG/ML Prefi lled Syringe enoxaparin (LOVENOX) syringe 40 mg enoxaparin (LOVENOX) syringe 40 mg 01/17/2021 04:55:17 PM EDT 40 mg Subcutaneous active 40 mg, Subcutaneous, Before Discharge, for prophylaxis, Starting on Kat 01/17/21 at 1655, For 1 dose, Post-op
At discharge. To be administered by patient or significant other.
[facility] Medication administered onsite enalaprilat (VASOTEC) injection 1.25 mg [id number] 01/18/20 04:55:17 PM EDT 1.25 mg Intravenous active 1.25 mg, Int ravenous, Every 6 hours PRN, for SBP > 140 mmHg and/or DBP > 90 mmHg, Starting on Kat 01/17/21 at 1655, Post- op
Mix in 50 mL NS, infuse over 30 minutes via infusion pump. For IVMB on NON-ICU units.
[facility] Medication administered onsite Clonidine Hydrochloride 0.1 MG Oral Tablet cloNIDine ( CATAPRES) tablet 0.1 mg cloNIDine (CATAPRES) tablet 0.1 mg 01/17/2021 04:55:16 PM EDT 0.1 mg Oral active 0.1 mg, Oral, Every 4 hours PRN, high blood pressure, for SBP > 140 mmHg and/or DBP > 90 mmHg, Starting on Kat 01/17/21 at 1655, Post-op [facility] Medication administered onsite fentaNYL Citrate (PF) (SUBLIMAZE) injection 25 mcg [id number] 01/17/2021 03:16:33 PM EDT 25 ug Intravenous aborted 25 mcg, Intravenous, Every 5 min PRN, moderate pain (4-6), moderate pain (4 to 6), Starting on Kat 01/17/21 at 1516, For 8 doses, PACU (only) [facility] Medication administered onsite Alprazolam 0.25 MG Oral Tablet ALPRAZolam (XANAX) tabl et 0.25 mg ALPRAZolam (XANAX) tablet 0.25 mg 01/17/2021 11:00:00 AM EDT 0.25 mg Oral completed 0.25 mg, Oral, scallop dredger, On Kat 01/17/21 a t 1100, For 1 dose, Pre-op [facility] Medication administered onsite Prochlorperazine 10 MG Oral Tablet prochlorperazine (C OMPAZINE) tablet 10 mg prochlorperazine (COMPAZINE) tablet 10 mg 01/17/2021 11:00:00 AM EDT 10 mg Oral completed 10 mg, Oral, O n call, On Kat 01/17/21 at 1100, For 1 dose, Pre-op [facility] Medication administered onsite Tetrahydrocannabinol 2.5 MG Oral Capsule dronabinol (M ARINOL) capsule 5 mg dronabinol (MARINOL) capsule 5 mg 01/17/2021 11:00:00 AM EDT 5 mg Oral completed 5 mg, Oral, scallop dredger, On Kat 01/17 at 1100, For 1 dose, Pre-op [facility] Medication administered onsite celecoxib 100 MG Oral Capsule celecoxib (CeleBREX) cap dayanara 200 mg celecoxib (CeleBREX) capsule 200 mg 01/17/2021 11:00:00 AM EDT 200 mg Oral completed 200 mg, Oral, scallop dredger, On Kat at 1100, For 1 dose, Pre-op [facility] Medication administered onsite Dexamethasone 4 MG Oral Tablet dexamethasone (DECADRON ) tablet 4 mg dexamethasone (DECADRON) tablet 4 mg 01/17/2021 11:00:00 AM EDT 4 mg Oral completed 4 mg, Oral, scallop dredger, On Kat 01/17 at 1100, For 1 dose, Pre-op [facility] Medication administered onsite gabapentin 600 MG Oral Tablet gabapentin (NEURONTIN) t ablet 600 mg gabapentin (NEURONTIN) tablet 600 mg 01/17/2021 11:00:00 AM EDT 600 mg Oral completed 600 mg, Oral, On marixa l, On Kat 01/17/21 at 1100, For 1 dose, Pre-op
Hold if age greater than 70 or chronic renal failure/insufficiency
[facility] Medication administered onsite heparin (porcine) injection 5,000 Units [id number] 01/18/20 11:00:00 AM EDT 5000 U Subcutaneous completed 5,000 Uni ts, Subcutaneous, scallop dredger, On Kat 01/17/21 at 1100, For 1 dose, Pre-op
If platelet count is less than 100,000 or hematocrit is less than 25, or if there is a 5 point decrease in hematocrit, do not give the dose and call physician/designee.
[facility] Medication administered onsite Calcium Chloride 0.0014 MEQ/ML / Potassi um Chloride 0.004 MEQ/ML / Sodium Chloride 0.103 MEQ/ML / Sodium Lactate 0.028 MEQ/ML Injectable Solution lactated ringers infusion lactated ringers infusion 01/17/2021 11:00:00 AM EDT 100 mL/h Intravenous aborted at 100 m L/hr, 100 mL/hr, Intravenous, Continuous, Starting on Kat 01/17/21 at 1100, Pre-op
Please place IV on left side if able
[facility] Medication administered onsite Albuterol 0.83 MG/ML Inhalant Solution a lbuterol (PROVENTIL) nebulizer solution 2.5 mg albuterol (PROVENTIL) nebulizer solution 2.5 mg 2020 11:00:00 AM EDT 2.5 mg completed 2.5 mg , Nebulization, scallop dredger, On Kat 01/17/21 at 1100, For 1 dose, Pre-op
To be started by pre-op unit
[facility] Medication administered onsite Acetaminophen 325 MG Oral Tablet acetaminophen (TYLENO L) 325 MG tablet 975 mg acetaminophen (TYLENOL) 325 MG tablet 975 mg 01/17/2021 11:00:00 AM EDT 975 mg Oral completed 975 mg, Or al, scallop dredger, On Kat 01/17/21 at 1100, For 1 dose, Pre-op
"Maximum dose of acetaminophen is 4,000 mg from all sources in 24 hours."
[facility] Medication administered onsite Clonidine Hydrochloride 0.1 MG Oral Tablet cloNIDine ( CATAPRES) tablet 0.1 mg cloNIDine (CATAPRES) tablet 0.1 mg 01/17/2021 11:00:00 AM EDT 0.1 mg Oral completed 0.1 mg, Oral, scallop dredger, On Kat at 1100, For 1 dose, Pre-op [facility] Medication administered onsite scopolamine (TRANSDERM-SCOP) 1.5 MG (Bariatric only) 1 patch [id number] 01/17/2021 10:37:11 AM EDT 1 {patch} Transdermal aborted 1 patch, Transdermal, Administer over 24 Hours, Every 24 hours (relative), First dose on Kat 01/17/21 at 1100, For 1 dose, Pre-op
Scopolamine patch applied behind ear. Hold for any of the followin+ yrs old, hx of glaucoma, hx of vertigo, dementia.
[facility] Medication administered onsite 50 mg 11/28/2020 [...] by mouth daily as needed for nausea [facility] Omeprazole 20 MG Delayed Release Oral Ca psule omeprazole (PriLOSEC) 20 MG capsule omeprazole (PriLOSEC) 20 MG capsule 20 mg Oral aborted Take 20 mg by mouth once daily [facility] Insurance Providers Payer name Policy type / Coverage type Policy ID Covered republican ID Covered republican's relationship to urias Policy Urias Plan Information [id number] BC EXC PLANS 1 [id number] [place]/307 [id number] [address] [address] JERAL UNAVAILABLE [id number] UNAVA ILABLE BC EXC PLANS 1 [id number] Self [id number] EXCELLUS C [id number] Spouse [id number] EXCELLUS BCBS [id number] Spo VYS EXCELLUS BCBS xxxxxxxxxxxx [id number] [place] PPO 302/307 [id number] INSURANCE COVID-19 [id number] [id number] INSURANCE COVID-19 COVID Carolann C OVID SELF PAY 2 UNAVAILABLE 1 UNAVAILA BLE [place] PPO 302/307 [id number] Excellus [id number] BCBS/[employer] Commercial [id number] Family Dependent [id number] [place] [id number] SPO [id number] [id number] [place] [id number] SPO [id number] [place] BCBS B [id number] P VYS [id number] [place] PPO 302/307 [id number] [id number] [place] BCBS B [id number] P [id number] [place] PPO 302/307 [id number] [employer] [id number] Family Dependent [id number] [place] PPO 302/307 [id number] SELF PAY UNAVAILABLE SP UNAVAILA BLE Problems, Conditions, and Diagnoses Code Display Name Description Problem Type Effective Dates Data Source(s) E66.01 Morbid (severe) obesity due to excess ca lories Morbid (severe) obesity due to excess ca Diagnosis 01/17/2021 09:56:00 AM EDT [facility] U07.1 COVID-19 COVID-19 Diagnosis 01/12/2021 07:57:04 AM ED T [facility] K21.9 Gastro-esophageal reflux disease without esophagitis Gastro-esophageal reflux disease without Diagnosis 05/01/2020 07:52:00 AM EDT [facility] J98.8 Other specified respiratory disorders Ot her specified respiratory disorders Diagnosis 04/27/2020 11:04:03 AM EDT [facility] Surgeries/Procedures Procedure Description Date Indications Data Source(s) OFFICE OUTPATIENT VISIT 25 MINUTES 01/25/2021 12:00:00 AM EDT [facility] GLUC BLD GLUC MNTR DEV CLEARED FDA SPEC HOME USE <td>P OCT GLUCOSE</td><td>Routine</td><td>01/18/2021 12:26 PM EDT</td><td></td><td> </td> 01/18/2021 12:26:00 PM EDT [facility] GLUC BLD GLUC MNTR DEV CLEARED FDA SPEC HOME USE <td>P OCT GLUCOSE</td><td>Routine</td><td>01/18/2021 5:59 AM EDT</td><td></td><td> </td> 01/18/2021 05:59:00 AM EDT [facility] GLUC BLD GLUC MNTR DEV CLEARED FDA SPEC HOME USE <td>P OCT GLUCOSE</td><td>Routine</td><td>01/18/2021 12:03 AM EDT</td><td></td><td> </td> 01/18/2021 12:03:00 AM EDT [facility] GLUC BLD GLUC MNTR DEV CLEARED FDA SPEC HOME USE <td>P OCT GLUCOSE</td><td>Routine</td><td>01/17/2021 6:15 PM EDT</td><td></td><td> </td> 01/17/2021 06:15:00 PM EDT [facility] GLUC BLD GLUC MNTR DEV CLEARED FDA SPEC HOME USE <td>P OCT GLUCOSE</td><td>Routine</td><td>01/17/2021 4:16 PM EDT</td><td></td><td> </td> 01/17/2021 04:16:00 PM EDT [facility] GLUC BLD GLUC MNTR DEV CLEARED FDA SPEC HOME USE <td>P OCT GLUCOSE</td><td>Routine</td><td>01/17/2021 3:20 PM EDT</td><td></td><td> </td> 01/17/2021 03:20:00 PM EDT [facility] LAPS GSTR RSTCV PX W/BYP SHAINA-EN-Y LIMB <150 CM <td>CR EATION, GASTRIC BYPASS, SHAINA-EN-Y, LAPAROSCOPIC, WITH SLEEVE GASTRECTOMY IF INDICATED, WITH LIVER BIOPSY IF INDICATED, WITH HIATAL HERNIA REPAIR IF INDICATED, WITH LAPAROTOMY IF INDICATED</td><td></td><td>01/17/2021 12:59 PM EDT</td><td> Morbid obesity Fatty liver Hepatomegaly</td><td></td> 01/17/2021 12:59:00 PM EDT - 01/17/2021 03:41:00 PM EDT HepatomegalyFatty liverMorbid obesity [facility] Hepatomegaly Fatty liver Morbid obesity GLUC BLD GLUC MNTR DEV CLEARED FDA SPEC HOME USE <td>P OCT GLUCOSE</td><td>Routine</td><td>01/17/2021 10:49 AM EDT</td><td></td><td> </td> 01/17/2021 10:49:00 AM EDT [facility] ECG ROUTINE ECG W/LEAST 12 LDS TRCG ONLY W/O I&R <td>E CG 12- LEAD</td><td>Routine</td><td>01/08/2021 3:25 PM EDT</td><td> Morbid obesity</td><td></td> 01/08/2021 03:25:43 PM EDT Morbid obesity [facility] Morbid obesity BLOOD TYPING ABO <td>TYPE AND SCREEN</td><td> Routine</td><td>01/08/2021 3:20 PM EDT</td><td> Morbid obesity</td><td> </td> 01/08/2021 03:20:00 PM EDT Morbid obesity [facility] Morbid obesity THYROID STIMULATING HORMONE TSH <td>TSH</td><td>Routin e</td><td>01/08/2021 3:20 PM EDT</td><td> Morbid obesity</td><td> </td> 01/08/2021 03:20:00 PM EDT Morbid obesity [facility] Morbid obesity HEMOGLOBIN GLYCOSYLATED A1C <td>HEMOGLOBIN A1C</td><td>Routine</td><td>01/08/2021 3:20 PM EDT</td><td> Morbid obesity</td><td> </td> 01/08/2021 03:20:00 PM EDT Morbid obesity [facility] Morbid obesity Results ID Date Data Source [id number] [facility] 11[facility]21[facility] RETRO LIMITEDCLINICAL HISTORY: Bilateral [...] rce(s) Supporting Document(s) ID Date Data Source [id number] 05/29/2021 07:58:37 PM EDT [facility] [...] - CORE MPV 9.7 fL (7.1-10.7) Laboratory [place] [facility] [facility] C[facility] NEUT % 61.2 % (35.0-75.0) [facility] LYMPH % 26.5 % (16.0-52.0) [facility] [facility] C[facility] MONO % 9.9 % (0.0-8.0) H [facility] [place] [facility] [place] - CORE EOS % 1.9 % (0.0-5.0) [facility] [place] [facility] - CORE BASO % 0.5 % (0.0-4.0) [facility] [place] [facility] - CORE NEUT # 3.4 10*3/uL (1.8-7.7) [facility] [facility] LYMPH # 1.5 10*3/uL (1.2-4.8) [facility] - C[facility] MONO # 0.6 10*3/uL (0.0-0.8) [facility] [facility] Eosinophils [#/volume] in Blood by Automated count 0.1 10*3/uL (0.0-0 .5) [facility] [place] [facility] [place] - CORE BASO # 0.0 10*3/uL (0.0-0.2) [facility] [facility] ID Date Data Source [id number] 05/29/2021 08:24:00 PM EDT [facility] [facility] Name Value Range Interpretation Code Description Data Lydia rce(s) Supporting Document(s) VITAMIN B12 @ 1295 pg/mL (193-986) H Laboratory [facility] of [place] - CORE ID Date Data Source [id number] 05/29/2021 08:24:00 PM EDT Laboratory [facility] - CORE Name Value Range Interpretation Code Description Data Lydia rce(s) Supporting Document(s) SODIUM 140 mmol/L (136-145) [facility] [place] [facility] [place] - C[facility] POTASSIUM 4.7 mmol/L (3.6-5.2) [facility] [place] [facility] [place] - CORE CHLORIDE 103 mmol/L (100-108) [facility] [place] [facility] [place] - C[facility] CO2 28 mmol/L (22-31) [facility] [place] [facility] [place] - [place] ANION GAP 9 mmol/L (7-16) [facility] [place] [facility] [place] - CORE UREA NITROGEN 15 mg/dL (7-24) [facility] [place] - CORE CREATININE 0.86 mg/dL (0.60-1.00) [facility] [place] - [place] BUN/CREAT RATIO 17.4 RATIO (10.0-20.0) [facility] [place] [facility] [place] - CORE GLUCOSE 86 mg/dL (70-99) [facility] [place] [facility] [place] - CORE CALCIUM 9.5 mg/dL (8.4-10.2) [facility] [place] [facility] [place] [facility] [place] TOTAL PROTEIN 7.5 g/dL (6.4-8.2) [facility] [place] - [place] ALBUMIN 4.0 g/dL (3.5-4.6) [facility] [place] [facility] [place] - CORE GLOBULIN 3.5 g/dL (2.7-4.3) [facility] [place] [facility] [place] - CORE ALB/GLOB RATIO 1.1 RATIO [facility] - CORE ALKALINE PHOSPHATASE 75 U/L (45-117) [facility]ator [facility] [place] [facility] [place] - CORE BILIRUBIN,TOTAL 0.6 mg/dL (0.0-1.0) Laboratory [facility] [place] PLEASE NOTE:Total bilirubin results may be falselyelevated in patients taking Eltrombopag. AST (SGOT) 20 U/L (11-39) [facility] [place] ALT (SGPT) 26 U/L (12-78) [facility] [place] [facility] GFR >60 ml/min/1.73m2 (>59) Laboratory [facility] [place] GFR ( AMER) >60 ml/min/1.73m2 (>59) [facility] [place] GFR INTERPRETATION Laboratory [facility] [place] --NORMAL KIDNEY FUNCTION OR MILD DISEASE - GFR >OR= 60CHRONIC KIDNEY DISEASE - GFR 15 - 59RENAL FAILURE - GFR <15 Est. GFR calculation based on the MDRDstudy equation, which assumes a steadystate for creatinine. Est. GFR should notbe used for medication dosing. ID Date Data Source [id number] 05/29/2021 08:24:00 PM EDT Laboratory [facility] [place] Name Value Range Interpretation Code Description Data Lydia rce(s) Supporting Document(s) ESTRADIOL @ 24 pg/mL Laboratory [place] [facility] [place] ESTRADIOL REFERENCE RANGE: MENSTRUATING FEMALES FOLLICULAR PHASE 21-165 PG/ML MIDCYCLE 50-367 PG/ML LUTEAL PHASE 40-259 PG/ML POSTMENOPAUSAL <40 PG/ML ID Date Data Source [id number] 05/29/2021 08:24:00 PM EDT Laboratory [facility] [place] Name Value Range Interpretation Code Description Data Lydia rce(s) Supporting Document(s) FOLATE @ >20.0 ng/mL (3.1-17.5) H Laboratory Ludwin rao of [place] ID Date Data Source [id number] 05/29/2021 08:24:00 PM EDT Laboratory [facility] - CORE Name Value Range Interpretation Code Description Data Lydia rce(s) Supporting Document(s) PROGESTERONE @ 1.65 ng/mL Laboratory [facility] PROGESTERONE REFERENCE RANGE:MALE <1.97 NG/MLFEMALEMENSTRUATING FOLLICULAR 0.21 - 1.70 NG/ML LUTEAL 2.25 - 24.20 NG/ML MID-LUTEAL 8.76 - 21.60 NG/MLPOSTMENOPAUSAL < 0.90 NG/ML 1ST TRIMESTER 11.40 - 41.00 NG/ML 2ND TRIMESTER 13.80 - 156.00 NG/ML 3RD TRIMESTER >51.40 NG/ML ID Date Data Source [id number] 05/29/2021 08:24:00 PM EDT Laboratory [facility] Name Value Range Interpretation Code Description Data Lydia rce(s) Supporting Document(s) FREE THYROXINE @ 1.01 ng/dL (0.76-1.46) [facility] [place] [facility] [place] ID Date Data Source [id number] 05/29/2021 08:24:00 PM EDT Laboratory Al [facility] of [employer] CORE Name Value Range Interpretation Code Description Data Lydia rce(s) Supporting Document(s) FSH @ 64.7 mIU/mL Laboratory [facility] [place] FSH Reference Range:Males 0. 7 - 10.8 mIU/mLFemales, Menstruating Follicular Phase 2.3 - 12.6 mIU/mL Mid cycle Peak 5.2 - 17.5 mIU/mL Luteal Phase 1.7 - 12.9 mIU/mLFemales, Postmenopausal On Menopausal Hormone Therapy (MHT) 5.9 - 72.8 mIU/mL Not on MHT 12.7 - 132.2 mIU/mL ID Date Data Source [id number] 05/29/2021 08:24:00 PM EDT Laboratory [facility] [place] Name Value Range Interpretation Code Description Data Lydia rce(s) Supporting Document(s) MAGNESIUM 2.4 mg/dL (1.7-2.4) [facility] [place] [facility] [place] ID Date Data Source [id number] 05/29/2021 08:24:00 PM EDT Laboratory [facility] [employer] CORE Name Value Range Interpretation Code Description Data Lydia rce(s) Supporting Document(s) TSH,ULTRASENSITIVE @ 2.220 mIU/L (0.360-4.170) [facility] [place] [facility] ID Date Data Source [id number] 05/29/2021 08:24:00 PM EDT Laboratory Al [facility] of [facility] Name Value Range Interpretation Code Description Data Lydia rce(s) Supporting Document(s) IRON,TOTAL @ 113 ug/dL (35-150) Laboratory [facility] UIBC @ 149 ug/dL (130-375) [facility] [place] [facility] TIBC @ 262 ug/dL (250-450) Laboratory [facility] % SATURATION 43 % (12-50) Laboratory Allian [facility] of [facility] ID Date Data Source [id number] 05/29/2021 08:25:55 PM EDT Laboratory Al li[facility] of [facility] Name Value Range Interpretation Code Description Data Lydia rce(s) Supporting Document(s) 25 HYDROXY VIT D @ 59 ng/mL (31-100) [facility] [place] [facility] A REVIEW OF THE LITERATURE SUGGESTS THEF OLLOWING RANGES FOR THE CLASSIFICATIONOF 25-OH VITAMIN D STATUS: VITAMIN D STATUS 25-OH VITAMIN D DEFICIENCY <20 NG/MLINSUFFICIENCY 20-30 NG/MLSUFFICIENCY 31 - 100 NG/MLTOXICITY > 100 NG/ML A PEDIATRIC REFERENCE RANGE HAS NOT BEENESTABLISHED USING THIS METHOD. ID Date Data Source [id number] 05/30/2021 01:36:37 PM EDT Laboratory Al [facility] of [facility] Name Value Range Interpretation Code Description Data Lydia rce(s) Supporting Document(s) DHEA SULFATE @ 215 ug/dL (35-430) Laboratory Luciano ance of [facility] ID Date Data Source [id number] 06/03/2021 10:41:29 AM EDT Laboratory [facility] of [facility] [employer] Name Value Range Interpretation Code Description Data Lydia rce(s) Supporting Document(s) TESTOSTERONE 40 Laboratory Allian ce of [facility] [place] Reference range: 9 to 55Unit: ng/dL Tota l Testosterone, Females 18 years and older Premenopausal 9-55 ng/dL Postmenopausal 5-32 ng/dL REFERENCE INTERVAL: Testosterone, LC-MS/MS Access complete set of age- and/or gender-specific reference intervals for this test in the [facility] ([employer]). This test was developed and its performance characteristics determined by [facility]. It has not been cleared or approved by the US Food and Drug Administration. This test was performed in a CLIA certified laboratory and is intended for clinical purposes. SEX BINDING GLOBULIN 55 nmol/L Laborator y [place] [facility] Reference range: 30 to 135Unit: nmol/L R EFERENCE INTERVAL: Sex Hormone Binding Globulin Access complete set of age- and/or gender-specific reference intervals for this test in the [employer] [facility] ([employer]). TESTOSTERONE FREE 4.9 H Laboratory [facility] of [facility] Reference range: 0.6 to 3.8Unit: pg/mL T o convert to pmol/L, multiply pg/mL by 3.47 The concentration of Free Testosterone is derived from a mathematical expression based on the constant for the binding of testosterone to sex hormone binding globulin. REFERENCE INTERVAL: Testosterone, Free LC-MS/MS Access complete set of age- and/or gender-specific reference intervals for this test in the [employer] [facility] ([employer]). This test was developed and its performance characteristics determined by [facility]. It has not been cleared or approved by the US Food and Drug Administration. This test was performed in a CLIA certified laboratory and is intended for clinical purposes. Performed By: [facility] [address] [place] [id number] Dye Machine Operator: Catherine Carlin MD ID Date Data Source [id number] 04/26/2021 12:14:00 PM EDT [facility] Name Value Range Interpretation Code Description Data Lydia rce(s) Supporting Document(s) SARS-CoV-2 RNA Silvano Ql ELOISA+probe Not Detected [facility] This lab was ordered by Who@ and reported by [employer]. ID Date Data Source [id number] 02/08/2021 02:34:32 PM EDT Laboratory Al li[facility] of [facility] Name Value Range Interpretation Code Description Data [...] - CORE MPV 8.9 fL (7.1-10.7) [facility] [place] - CORE NEUT % 66.6 % (35.0-75.0) [facility] - CORE LYMPH % 18.7 % (16.0-52.0) [facility] [place] - CORE MONO % 9.8 % (0.0-8.0) H [facility] [place] [facility] [place] - CORE EOS % 4.1 % (0.0-5.0) [facility] [place] [facility] [place] - CORE BASO % 0.8 % (0.0-4.0) [facility] [place] [facility] [place] - CORE NEUT # 4.5 10*3/uL (1.8-7.7) [facility] [place] - CORE LYMPH # 1.3 10*3/uL (1.2-4.8) [facility] [place] - CORE MONO # 0.7 10*3/uL (0.0-0.8) [facility] [place] - CORE Eosinophils [#/volume] in Blood by Automated count 0.3 10*3/uL (0.0-0 .5) [facility] [place] [facility] [place] - CORE BASO # 0.1 10*3/uL (0.0-0.2) Laboratory All[facility] of [facility] ID Date Data Source [id number] 02/08/2021 02:36:03 PM EDT Laboratory Al li[facility] of [facility] Name Value Range Interpretation Code Description Data Lydia rce(s) Supporting Document(s) HEMOGLOBIN A1C @ 5.6 % (4.0-6.0) Laboratory Al liance of [facility] - CORE Performed using [employer] [place] immunoassa y.Care must be taken when interpreting [id number] in patients with a hemoglobin variantor decreased erythrocyte lifespan. Values 5.7 - 6.4% suggest prediabetes.Values >=6.5% are diagnostic for diabetes.REFERENCE: DIABETES CARE 2018: 41(S13-S27). EST AVERAGE GLUCOSE 114 mg/dL Laboratory [place] [facility] ID Date Data Source [id number] 02/08/2021 03:32:57 PM EDT Laboratory Al [facility] of [facility] Name Value Range Interpretation Code Description Data Lydia rce(s) Supporting Document(s) VITAMIN B12 @ 1361 pg/mL (193-986) H Laboratory Luciano ance of [facility] ID Date Data Source [id number] 02/08/2021 03:32:57 PM EDT Laboratory [facility] of [facility] Name Value Range Interpretation Code Description Data Lydia rce(s) Supporting Document(s) SODIUM 138 mmol/L (136-145) [facility] [place] [facility] POTASSIUM 4.1 mmol/L (3.6-5.2) [facility] [place] [facility] CHLORIDE 102 mmol/L (100-108) [facility] [place] [facility] CO2 29 mmol/L (22-31) [facility] [place] [facility] ANION GAP 7 mmol/L (7-16) [facility] [place] [facility] UREA NITROGEN 13 mg/dL (7-24) Laboratory Allia nce of [facility] CREATININE 0.73 mg/dL (0.60-1.00) Laboratory Allia nce of [facility] BUN/CREAT RATIO 17.8 RATIO (10.0-20.0) [facility] [place] [facility] GLUCOSE 97 mg/dL (70-99) [facility] [place] [facility] CALCIUM 9.4 mg/dL (8.4-10.2) [facility] [place] [facility] TOTAL PROTEIN 6.9 g/dL (6.4-8.2) Laboratory [facility]ia [facility] of [facility] ALBUMIN 3.2 g/dL (3.5-4.6) L Laboratory [place] [employer] - CORE GLOBULIN 3.7 g/dL (2.7-4.3) [facility] [place] [facility] [employer] ALB/GLOB RATIO 0.9 RATIO Laboratory [place] an[facility] of [place] ALKALINE PHOSPHATASE 89 U/L (45-117) Laborator y [place] [facility] BILIRUBIN,TOTAL 0.4 mg/dL (0.0-1.0) Laboratory [facility] [place] PLEASE NOTE:Total bilirubin results may be falselyelevated in patients taking Eltrombopag. AST (SGOT) 17 U/L (11-39) [facility] [place] [facility] [place] ALT (SGPT) 43 U/L (12-78) [facility] [place] [facility] [place] GFR >60 ml/min/1.73m2 (>59) Laboratory A [facility] [place] GFR ( AMER) >60 ml/min/1.73m2 (>59) [facility] [place] [facility] GFR INTERPRETATION [facility] [place] [facility] --NORMAL KIDNEY FUNCTION OR MILD DISEASE - GFR >OR= 60CHRONIC KIDNEY DISEASE - GFR 15 - 59RENAL FAILURE - GFR <15 Est. GFR calculation based on the MDRDstudy equation, which assumes a steadystate for creatinine. Est. GFR should notbe used for medication dosing. ID Date Data Source [id number] 02/08/2021 03:32:57 PM EDT Laboratory [facility] Name Value Range Interpretation Code Description Data Lydia rce(s) Supporting Document(s) FERRITIN @ 354 ng/mL (8-252) H [facility] [place] [facility] ID Date Data Source [id number] 02/08/2021 03:32:57 PM EDT Laboratory [facility] [place] Name Value Range Interpretation Code Description Data Lydia rce(s) Supporting Document(s) IRON,TOTAL @ 50 ug/dL (35-150) Laboratory [facility] [place] UIBC @ 103 ug/dL (130-375) L [facility] [place] TIBC @ 153 ug/dL (250-450) L Laboratory [place] [facility] % SATURATION 33 % (12-50) Laboratory [facility] of [place] ID Date Data Source [id number] 02/08/2021 03:32:57 PM EDT Laboratory [facility] [place] Name Value Range Interpretation Code Description Data Lydia rce(s) Supporting Document(s) MAGNESIUM 2.4 mg/dL (1.7-2.4) [facility] [place] [facility] ID Date Data Source [id number] 02/08/2021 03:32:57 PM EDT Laboratory [facility] [place] Name Value Range Interpretation Code Description Data Lydia rce(s) Supporting Document(s) PHOSPHORUS 3.5 mg/dL (2.5-4.5) [facility] [place] ID Date Data Source [id number] 02/08/2021 04:45:57 PM EDT Laboratory [facility] [place] Name Value Range Interpretation Code Description Data Lydia rce(s) Supporting Document(s) 25 HYDROXY VIT D @ 49 ng/mL (31-100) [facility] [place] A REVIEW OF THE LITERATURE SUGGESTS THEF OLLOWING RANGES FOR THE CLASSIFICATIONOF 25-OH VITAMIN D STATUS: VITAMIN D STATUS 25-OH VITAMIN D DEFICIENCY <20 NG/MLINSUFFICIENCY 20-30 NG/MLSUFFICIENCY 31 - 100 NG/MLTOXICITY > 100 NG/ML A PEDIATRIC REFERENCE RANGE HAS NOT BEENESTABLISHED USING THIS METHOD. ID Date Data Source [id number] 02/11/2021 11:33:53 PM EDT Laboratory [facility] [place] Name Value Range Interpretation Code Description Data Lydia rce(s) Supporting Document(s) SR HCT 33.7 % [facility] [place] FOLATE RBC 583 ng/mL [facility] Reference range: >=366 Performed By: [employer] [address] [place] [address] Dye Machine Operator: Catherine Carlin MD ID Date Data Source [id number] 02/14/2021 11:16:26 AM EDT Laboratory Al [facility] [place] Name Value Range Interpretation Code Description Data Lydia rce(s) Supporting Document(s) VITAMIN B1 77 nmol/L Laboratory [facility] Reference range: 70 to 180 INTERPRETIVE INFORMATION: Vitamin B1, Whole Blood This assay measures the concentration of thiamine diphosphate (TDP), the primary active form of vitamin B1. Approximately 90 percent of vitamin B1 present in whole blood is TDP. Thiamine and thiamine monophosphate, which comprise the remaining 10 percent, are not measured. This test was developed and its performance characteristics determined by [facility]. It has not been cleared or approved by the US Food and Drug Administration. This test was performed in a CLIA certified laboratory and is intended for clinical purposes. Performed By: [facility] [address] [place] [address] Dye Machine Operator: Catherine Carlin MD ID Date Data Source [id number] 01/25/2021 06:13:00 PM EDT [facility] Name Value Range Interpretation Code Description Data Lydia rce(s) Supporting Document(s) SARS coronavirus 2 RNA [Presence] in Res piratory specimen by ELOISA with probe detection [facility] This lab was ordered by [facility] a nd reported by [facility]. ID Date Data Source [id number] 01/18/2021 04:46:47 PM EDT [facility] NT INFORMATIONPatient MRN Name Date of Age Gend*PT [id number] Helga Hu 1960 60 years F IPPT Location Admission Date/Time Visit ID Attending [id number] 01/17/21 0956 --- --- EPI ID CSN Admitting Provider [id number] Enmanuel Riggins MD([id number]) Attestation signed by Enmanuel Riggins MD at [...] dischargeplan.Most recent glucose:Glucose, POCDate Value Ref Range Iefukl4601/18/2021 117 (H) 70 - 99 mg/dL Final Comment: PERFORMED BY [facility] CLINICAL STAFFDischarge instructions were reviewed in person [...] rce(s) Supporting Document(s) ID Date Data Source [id number] 01/18/2021 12:29:37 PM EDT [facility] [place] Name Value Range Interpretation Code Description Data Lydia rce(s) Supporting Document(s) POC NOVA GLU 76 mg/dL (70-99) [facility] [place] PERFORMED BY [facility] ID Date Data Source [id number] 01/18/2021 06:03:02 AM EDT [facility] [place] Name Value Range Interpretation Code Description Data Lydia rce(s) Supporting Document(s) POC NOVA GLU 117 mg/dL (70-99) H [facility] [place] PERFOR[facility] BY [facility] ID Date Data Source [id number] 01/18/2021 12:06:23 AM EDT [facility] [place] Name Value Range Interpretation Code Description Data Lydia rce(s) Supporting Document(s) POC NOVA GLU 145 mg/dL (70-99) H [facility] [place] PERFOR[facility] BY [facility] ID Date Data Source [id number] 01/17/2021 06:18:16 PM EDT [facility] [place] Name Value Range Interpretation Code Description Data Lydia rce(s) Supporting Document(s) POC NOVA GLU 122 mg/dL (70-99) H [facility] [place] PERFOR[facility] ID Date Data Source [id number] 01/17/2021 04:19:11 PM EDT [facility] [place] Name Value Range Interpretation Code Description Data Lydia rce(s) Supporting Document(s) POC NOVA GLU 130 mg/dL (70-99) H [facility] [place] [facility] ID Date Data Source [id number] 01/17/2021 03:23:07 PM EDT [facility] [place] Name Value Range Interpretation Code Description Data Lydia rce(s) Supporting Document(s) POC NOVA GLU 142 mg/dL (70-99) H [facility] [place] [facility] ID Date Data Source [id number] 01/17/2021 03:16:18 PM EDT [facility] NT INFORMATIONPatient MRN Name Date of Age Gend*PT [id number] FritzHelga Yamilex 1960 60 years F IPPT Location Admission Date/Time Visit ID Attending ProviderPERIOP CECI 01/17/21 0956 --- Enmanuel Riggins MD([id number]) EPI ID CSN Admitting Provider [id number] Enmanuel Riggins MD([id number])CREATION, GASTRIC BYPASS, SHAINA-EN-Y, LAPAROSCOPIC, WITH LIVER BIOPSY ProcedureNoteMeliamalia Hu CSN:[id number]/17/2021Surgeon(s):ALEXSANDRA Chaparrourgical Assist: Ivan Llanesaff:OR Perinatal Specialist: FLOWER Carrurgical Assist: JEMMA Llanes Relief Scrub: [...] a fatty liver. We covered complicationsincluding: , TN, DVT, PE, leaks, sepsis, gallbladder disease, anastomoticulcers, [...] with a white load on a power Thurmond stapler atthe 50 cm point. The biliopancreatic limb and the Shaina limb were [id number]. The intermesenteric defect between the two limbs was closed with arunning 3-0 V-Loc suture. Once this was closed, an enterotomy was m ravi in thebiliopancreatic limb and then in the Shaina limb. The 60-mm Thurmond stapler with awhite load was inserted into [...] angle ofHis was dissected out with a [place] grasper behind the hiatus, exposing theleft anirudh. [...] done, the anastomosis wastested for leaks. My assistant boiler operator clamped across the Shaina limb with the bowel clampwhile I passed the endoscope into the esophagus, into the pouch, and into theRoux limb. I insufflated with air and my assistant boiler operator irrigated over theanastomosis with normal saline. There [...] Name Value Range Interpretation Code Description Data [facility] Areae(s) Supporting Document(s) ID Date Data Source [id number] 01/17/2021 01:29:07 PM EDT [facility] [place] NT INFORMATIONPatient MRN Name Date of Age Gend*PT [id number] Helga Hu 1960 60 years F SDAPT Location Admission Date/Time Visit ID Attending Provider --- --- --- --- EPI ID CSN Admitting Provider [id number] ---AirwayPatient location during procedure: ORUrgency: electiveDifficult airway: [...] cmPlacement verified by: chest auscultation and + [id number]: equal breath sounds bilateral and CTAGrade view: grade IIa - partial view of glottis Name Value Range Interpretation Code Description Data Lydia rce(s) Supporting Document(s) ID Date Data Source [id number] 01/17/2021 12:10:19 PM EDT [facility] [place] NT INFORMATIONPatient MRN Name Date of Age Gend*PT [id number] Helga Hu 1960 60 years F SDAPT Location Admission Date/Time Visit ID [facility] 01/17/21 0956 --- Enmanuel Riggins MD([id number]) EPI ID CSN Admitting Provider [id number] Enmanuel Riggins MD([id number])H&P reviewed. The patient was examined and there are no changes to the H&P.Enmanuel Riggins MD12:10 PM Name Value Range Interpretation Code Description Data Lydia rce(s) Supporting Document(s) ID Date Data Source [id number] 01/17/2021 10:52:07 AM EDT [facility] Name Value Range Interpretation Code Description Data Lydia rce(s) Supporting Document(s) POC NOVA GLU 72 mg/dL (70-99) [facility] PERFORMED BY [facility] ID Date Data Source [id number] 01/21/2021 02:03:14 PM EDT [facility] [address] [place], [place] [address]Ivb# Surgical Pathology ReportPatient Name: HELGA HU: 2Accession [...] 01/21/2021Electronically Signed Out By Ramin Meadows MD [facility] [place], [place] [address]xxzZgyqxhgmz component performed at [facility], Histopathology, [address] [place] [address], [id number].Rep[facility] at [facility], [address] [place], [place], [address]. This report may includeimmunohistochemical or in-situ hybridization results. Testing wasdeveloped and the performance characteristics determined by [facility], [facility] as required by CLIA '88. The FDA hasdetermined that approval for specific use is not necessary for clinicaluse. The quality of Hematoxylin and Eosin stains and as applicable, forall immunohistochemical and/or special stains, including positive andnegative controls, were reviewed and considered appropriate.ICD codes E66.01 K76.0 J63.4CPT codesA: 75117M, 54164O, 54338Z, 97421G, 23760G Name Value Range Interpretation Code Description Data Lydia rce(s) Supporting Document(s) ID Date Data Source [id number] 01/12/2021 07:55:00 AM EDT [facility] Name Value Range Interpretation Code Description Data Lydia rce(s) Supporting Document(s) SARS coronavirus 2 RNA Not Detected [facility] This lab was ordered by [facility] [place] [facility] and reported by [employer]. ID Date Data Source [id number] 01/13/2021 01:07:14 PM EDT [facility] Name Value Range Interpretation Code Description Data Lydia rce(s) Supporting Document(s) SARS-COV-2 ELOISA [facility] Not DetectedReference range: Not Detecte d This nucleic acid amplification test was developed and its performance characteristics determined by [employer]. Nucleic acid amplification tests include RT-PCR and [...] detected) result in this assay. Performed At: [facility] [place], [place] [id number] Nhung Trujillo PhD Ph:[phone] ID Date Data Source [id number] 01/08/2021 04:14:03 PM EDT [facility] Name Value Range Interpretation Code Description Data Lydia rce(s) Supporting Document(s) EKG [facility] [id number]cvcg8T0E2vHCgF5DrqHZmj9xdW5ZwT4AlEKOwSQTQOE9XiBFd jb2 [file] [id number]r1nrTJ6EBEcFhmQWh5Om6EedfI7pdLrDyHhFUB5WtDrHW1Z ID Date Data Source [id number] 01/08/2021 03:24:56 PM EDT [facility] INFORMATIONPatient MRN Name Date of Age Gend*PT [id number] Helga Hu 1960 60 years F OPPT Location Admission Date/Time Visit ID Attending Provider --- --- --- Enmanuel Riggins MD([id number]) EPI ID CSN Admitting Provider [id number] Enmanuel Riggins MD([id number])HISTORY PHYSICALName: Helga Hu : 1960 Sex: female [...] warm and dry.HEENT: She is normocephalic, atraumatic. [place] conjunctivae. Anicteric sclerae.Pupils are equal, round, reactive [...] hepatosplenomegaly. Negative CVAT.GENITAL/RECTAL: Deferred.MUSCLE/SKELETAL: Strength is 5/5. Applications Tester are equal.NEUROLOGICALLY: Cranial nerves II through XII are grossly intact.VASCULAR: Pulses are symmetrical. No edema.Anesthesia complications: PONVSteroid use: She denies any oral steroid therapy for three weeks or greaterwithin the last 3 months.[facility] Frailty Scale :: 3/10 Managing Well (medical [...] parts of this document, were dictated using [employer] speaking software. A reasonable attempt at proofreading has beenmade to minimize errors. Please call with any questions or corrections. Name Value Range Interpretation Code Description Data [facility] Areae(s) Supporting Document(s) ID Date Data Source [id number] 01/08/2021 08:23:24 PM EDT [facility] Name Value Range Interpretation Code Description Data [facility] Areae(s) Supporting Document(s) TSH,ULTRASENSITIVE @ 3.430 mIU/L (0.360-4.170) [facility] ID Date Data Source [id number] 01/08/2021 08:02:00 PM EDT [facility] Name Value Range Interpretation Code Description Data [facility] Areae(s) Supporting Document(s) HEMOGLOBIN A1C @ 5.4 % (4.0-6.0) [facility] [place] [facility] Performed using [employer], Mobile Secretary immunoassa y.Care must be taken when interpreting IpW0deweejsl in patients with a hemoglobin variantor decreased erythrocyte lifespan. Values 5.7 - 6.4% suggest prediabetes.Values >=6.5% are diagnostic for diabetes.REFERENCE: DIABETES CARE 2018: 41(S13-S27). EST AVERAGE GLUCOSE 108 mg/dL [facility] ID Date Data Source [id number] 01/08/2021 06:53:45 PM EDT [facility] SPEC EXP DATE 01/18/2021ATI ENT ABO/Rh A NEGATIVEANTIBODY SCREEN NEGATIVETESTING SITE PERFORMED AT [address] [place] [address] [id number] BANK COMMENT BLOOD TYPE CONFIRMED. Name Value Range Interpretation Code Description Data Lydia rce(s) Supporting Document(s) TYPE AND SCREEN [facility] [place] [facility] ID Date Data Source [id number] 12/05/2020 06:21:51 PM EDT [facility] [...] - CORE MPV 9.4 fL (7.1-10.7) [facility] [place] [facility] - CORE NEUT % 54.8 % (35.0-75.0) [facility] - CORE LYMPH % 32.9 % (16.0-52.0) [facility] - CORE MONO % 6.9 % (0.0-8.0) [facility] [place] [facility] - CORE EOS % 4.8 % (0.0-5.0) [facility] - CORE BASO % 0.6 % (0.0-4.0) [facility] - CORE NEUT # 3.0 10*3/uL (1.8-7.7) [facility] - CORE LYMPH # 1.8 10*3/uL (1.2-4.8) [facility] - CORE MONO # 0.4 10*3/uL (0.0-0.8) [facility] Eosinophils [#/volume] in Blood by Automated count 0.3 10*3/uL (0.0-0 .5) [facility] - CORE BASO # 0.0 10*3/uL (0.0-0.2) [facility] ID Date Data Source [id number] 12/05/2020 07:07:32 PM EDT [facility] Name Value Range Interpretation Code Description Data Lydia rce(s) Supporting Document(s) DHEA SULFATE @ 174 ug/dL (35-430) [facility] ID Date Data Source [id number] 12/05/2020 07:07:32 PM EDT [facility] Name Value Range Interpretation Code Description Data Lydia rce(s) Supporting Document(s) THYROXINE @ 7.1 ug/dL (4.5-10.9) [facility] ID Date Data Source [id number] 12/05/2020 07:19:00 PM EDT [facility] Name Value Range Interpretation Code Description Data Lydia rce(s) Supporting Document(s) SODIUM 143 mmol/L (136-145) [facility] [place] [facility] - CORE POTASSIUM 4.4 mmol/L (3.6-5.2) [facility] - CORE CHLORIDE 104 mmol/L (100-108) [facility] - CORE CO2 29 mmol/L (22-31) [facility] - CORE ANION GAP 10 mmol/L (7-16) [facility] - CORE UREA NITROGEN 20 mg/dL (7-24) [facility] - CORE CREATININE 0.91 mg/dL (0.60-1.00) [facility] - CORE BUN/CREAT RATIO 22.0 RATIO (10.0-20.0) H [facility] [place] [facility] - CORE GLUCOSE 92 mg/dL (70-99) [facility] - CORE CALCIUM 9.6 mg/dL (8.4-10.2) [facility] - CORE TOTAL PROTEIN 7.5 g/dL (6.4-8.2) [facility] - CORE ALBUMIN 4.3 g/dL (3.5-4.6) [facility] - CORE GLOBULIN 3.2 g/dL (2.7-4.3) [facility] - CORE ALB/GLOB RATIO 1.3 RATIO [facility] - CORE ALKALINE PHOSPHATASE 73 U/L (45-117) [facility] [place] [facility] - CORE BILIRUBIN,TOTAL 0.6 mg/dL (0.0-1.0) [facility] - CORE PLEASE NOTE:Total bilirubin results may be falselyelevated in patients taking Eltrombopag. AST (SGOT) 17 U/L (11-39) [facility] [place] [facility] - CORE ALT (SGPT) 31 U/L (12-78) [facility] - CORE GFR >60 ml/min/1.73m2 (>59) [facility] - CORE GFR ( AMER) >60 ml/min/1.73m2 (>59) [facility] [place] [facility] - CORE GFR INTERPRETATION [facility] - CORE --NORMAL KIDNEY FUNCTION OR MILD DISEASE - GFR >OR= 60CHRONIC KIDNEY DISEASE - GFR 15 - 59RENAL FAILURE - GFR <15 Est. GFR calculation based on the MDRDstudy equation, which assumes a steadystate for creatinine. Est. GFR should notbe used for medication dosing. ID Date Data Source [id number] 12/05/2020 07:19:00 PM EDT [facility] Name Value Range Interpretation Code Description Data Lydia rce(s) Supporting Document(s) ESTRADIOL @ 23 pg/mL Laboratory [facility] [place] ESTRADIOL REFERENCE RANGE: MENSTRUATING FEMALES FOLLICULAR PHASE 21-165 PG/ML MIDCYCLE 50-367 PG/ML LUTEAL PHASE 40-259 PG/ML POSTMENOPAUSAL <40 PG/ML ID Date Data Source [id number] 12/05/2020 07:19:00 PM EDT [facility] Name Value Range Interpretation Code Description Data Lydia rce(s) Supporting Document(s) FSH @ 46.8 mIU/mL [facility] [place] FSH Reference Range:Males 0. 7 - 10.8 mIU/mLFemales, Menstruating Follicular Phase 2.3 - 12.6 mIU/mL Mid cycle Peak 5.2 - 17.5 mIU/mL Luteal Phase 1.7 - 12.9 mIU/mLFemales, Postmenopausal On Menopausal Hormone Therapy (MHT) 5.9 - 72.8 mIU/mL Not on MHT 12.7 - 132.2 mIU/mL ID Date Data Source [id number] 12/05/2020 07:19:00 PM EDT [facility] Name Value Range Interpretation Code Description Data Lydia rce(s) Supporting Document(s) PROGESTERONE @ 1.51 ng/mL [facility] [place] PROGESTERONE REFERENCE RANGE:MALE <1.97 NG/MLFEMALEMENSTRUATING FOLLICULAR 0.21 - 1.70 NG/ML LUTEAL 2.25 - 24.20 NG/ML MID-LUTEAL 8.76 - 21.60 NG/MLPOSTMENOPAUSAL < 0.90 NG/ML 1ST TRIMESTER 11.40 - 41.00 NG/ML 2ND TRIMESTER 13.80 - 156.00 NG/ML 3RD TRIMESTER >51.40 NG/ML ID Date Data Source [id number] 12/14/2020 07:24:40 PM EDT [facility] Name Value Range Interpretation Code Description Data Lydia rce(s) Supporting Document(s) TESTOSTERONE 68 H Laboratory [facility] [employer] [place] Reference range: 9 to 55Unit: ng/dL Tota l Testosterone, Females 18 years and older Premenopausal 9-55 ng/dL Postmenopausal 5-32 ng/dL REFERENCE INTERVAL: Testosterone, LC-MS/MS Access complete set of age- and/or gender-specific reference intervals for this test in the [employer] [facility] ([facility]). This test was developed and its performance characteristics determined by [facility]. It has not been cleared or approved by the US Food and Drug Administration. This test was performed in a CLIA certified laboratory and is intended for clinical purposes. SEX BINDING GLOBULIN 40 nmol/L [facility]ator [facility] [place] [facility] [employer] [place] Reference range: 30 to 135Unit: nmol/L R EFERENCE INTERVAL: Sex Hormone Binding Globulin Access complete set of age- and/or gender-specific reference intervals for this test in the [employer] [facility] ([employer]). TESTOSTERONE FREE 10.2 H Laboratory [facility] [employer] [place] Reference range: 0.6 to 3.8Unit: pg/mL T o convert to pmol/L, multiply pg/mL by 3.47 The concentration of Free Testosterone is derived from a mathematical expression based on the constant for the binding of testosterone to sex hormone binding globulin. REFERENCE INTERVAL: Testosterone, Free LC-MS/MS Access complete set of age- and/or gender-specific reference intervals for this test in the [employer] [facility] ([employer]). This test was developed and its performance characteristics determined by [employer]. It has not been cleared or approved by the US Food and Drug Administration. This test was performed in a CLIA certified laboratory and is intended for clinical purposes. Performed By: [facility] [address] [place] [id number] Dye Machine Operator: Catherine Carlin MD ID Date Data Source [id number] 10/22/2020 09:26:00 AM EDT [facility] Name Value Range Interpretation Code Description Data Lydia rce(s) Supporting Document(s) SARS-CoV-2 RNA Resp Ql ELOISA+probe Negative [facility] This lab was ordered by [facility] and reported by [employer]. ID Date Data Source [id number] 07/28/2020 12:00:00 AM EST [facility] Name Value Range Interpretation Code Description Data Lydia rce(s) Supporting Document(s) qPCR (PuzxpowYtvYqxsUHVG-RnQ-6 Assay) [facility] This lab was ordered by [facility] and reported by [employer]@. ID Date Data Source [id number] 07/20/2020 12:00:00 AM EST [facility] Name Value Range Interpretation Code Description Data Lydia rce(s) Supporting Document(s) SARS coronavirus 2 Ag [facility] This lab was ordered by [facility] and reported by [facility]. ID Date Data Source [id number] 05/16/2020 11:34:10 AM EDT [facility] Name Value Range Interpretation Code Description Data Lydia rce(s) Supporting Document(s) Progress Note [facility] RIHALr8vKwMCYbHh98/HOXfyQLDqv8SfNQfhCGq8EOwxXYJlD1BnGOO9vK3gMVX6HVbZLvGvGeZsUTF3 [facility] [file] ohiEgxAHRW+tuk/67GKrjnA846njL5/Lucía/PP83ZJJpsk/a2hbism87TUaHyKmzFDUYjj7rhP4b1PMu3 [file] AgICAgICAgICAgICAgICAgICAgICAgICAgICAgICAg ICAgICAgICAgICAgICAgICAgICAgICAgICAgICAgICAgDQogICAgICAgICAgICAgICAgICAgICAgICAg ICAgICAgICAgICAgICAgICAgICAgICAgICAgICAgICAgICAgICAgICAgICAgICAgICAgICAgICAgICAg ICAgICAgICAgICAgICAgDQogICAgICAgICAgICAgIC AgICAgICAgICAgICAgICAgICAgICAgICAgICAgICAgICAgICAgICAgICAgICAgICAgICAgICAgICAgIC AgICAgICAgICAgICAgICAgICAgICAgICAgDQogICAgICAgICAgICAgICAgICAgICAgICAgICAgICAgIC AgICAgICAgICAgICAgICAgICAgICAgICAgICAgICAg ICAgICAgICAgICAgICAgICAgICAgICAgICAgICAgICAgICAgDQogICAgICAgICAgICAgICAgICAgICAg ICAgICAgICAgICAgICAgICAgICAgICAgICAgICAgICAgICAgICAgICAgICAgICAgICAgICAgICAgICAg ICAgICAgICAgICAgICAgICAgDQogICAgICAgICAgIC AgICAgICAgICAgICAgICAgICAgICAgICAgICAgICAgICAgICAgICAgICAgICAgICAgICAgICAgICAgIC AgICAgICAgICAgICAgICAgICAgICAgICAgICAgDQogICAgICAgICAgICAgICAgICAgICAgICAgICAgIC AgICAgICAgICAgICAgICAgICAgICAgICAgICAgICAg ICAgICAgICAgICAgICAgICAgICAgICAgICAgICAgICAgICAgICAgDQogICAgICAgICAgICAgICAgICAg ICAgICAgICAgICAgICAgICAgICAgICAgICAgICAgICAgICAgICAgICAgICAgICAgICAgICAgICAgICAg ICAgICAgICAgICAgICAgICAgICAgDQogICAgICAgIC AgICAgICAgICAgICAgICAgICAgICAgICAgICAgICAgICAgICAgICAgICAgICAgICAgICAgICAgICAgIC AgICAgICAgICAgICAgICAgICAgICAgICAgICAgICAgDQogICAgICAgICAgICAgICAgICAgICAgICAgIC AgICAgICAgICAgICAgICAgICAgICAgICAgICAgICAg ASKcGIHiWRBjSKHvCHRtNVXuMPDlXUCcAXVnZXYfKXWcNFSiNAQfBUEiSIa9J2ssZPYlXPMtRE5kXGx4 Jz8+BKnQMkLuEWX9tgJfvI3DMI8yv1UoMUvkRFQzc9FaRUa6MQ9KNXOdCQuwMO6OKDlggd0QNBJxHOGc zQKXi4szTcUjQZX0BHLqLtixIC9UCXQoJ8tkrxFlZY LpHKYEHP7JVjMdB1QinS59WNWECm4+JHsnfmTcRyqRVxI0TEIpe1YcONj1NI4JVNLoHlhfk2LdNgBhRL BMURolKC7MWEP4ESMtWNGyVo5QIXRnS537dmIxGY6LUy5XGkMhSH8mjc4PRrKzSFFiPjcNWko7WTamQQ 8RfOOxZPyApw9ykiSfuaCBt0IuhnTjqCHRNDFvlRPH HJWvDAFlNMdmAFJZQwZyvBSqEA4vOP4pXABfPZGmPiA1ELDPRY2FKRBqSWDwrFEiXRAaVYQNNV0RZDsl PAD0DQWwqtQjuPYjMHzlHS2FWKEkgyKcTXvzEUMRWXf+Pp4KQH1dd6ZfABpzSAUkXT8lfd0ABWwSPlJt A0X6bLOyX4W0GQobNy5ARYYuKOIhEDgeGYSETOxbUZ 2IHL9dzwL0YP4QlDEnUMLjOVIdrDAvNQv0S54ijEZqXKtdOO9DUZK+Puneet+Qn6CNKRbURYfWOVhYkHoNV DMGeEvR4BhF8ZAs3KtW2GiHL23nUcbhuAqDXmfKG5WSI5oJKVgCVVRBJ2FbTSzeY6xmiCtFJAgNYWHJo TwI04jcDMsQNMsMGH7AWQkUp0UHXDnA3YcmoEhbPvy ncZyNFTlDAHPEL3BRNpylmPjuUXhuTyiOT40dQyqKL1ALr9XLsQfOU0ctb8AuTGiEe9KJLWkBw8WSIWd UJTzQFOmHRD6KYWfWpVuBQjcXULxWARhIVX5ADOmYCIcFF7ZBcCdXBUsSHkrHYTfERFpFTCebe8EUURn DNLfVFq8SqJbZUBdYIRxYSmjVMPtUHSiQXH5AOGpLZ UyPB7ZHlMrPNBlUDM7EONqTXOyWSCdqo0KUQUzHIQeByP3UEYoMDDyMQTwRVjlRRNmOCMtDQBzSNIdVF PwCT7KAwDmOVOkGSDsMrqiMLQkUHWoor2DEIPsDAGyQnJhYXVgSTLwMWLmYOgvWLFhWZD1UTn4EEUbCT HjHZ6PMdYdHCLzSGG8NoyvUFCvMVXaeo7CQBDbSFPu WUi0QlNjZMHxXMDkEEeoPDChXUG9VuPiPNKqKFEjLM3MDoNuBLCbCOM0DvegLZVwCVGrnf0TYKOrQYWf Jdz3QaZnWRUtNMQlPBplBGIdQEC8MNu2XBVcQQLoGI1AGdVkSQJwWWooRkUhTJMvPEAxrr6MLGJqXJAw LrBgOiXzNCLzBXOtPJhhCCPtYVJ5FGylIJRhVMFrRH 1PTfSkHIQvJHydJHOfBCBmOKTbye5IOERvROWwLXL4XyMfWNJfFTZgORe9hmUnkDOkAHp4DW7YH3Qwch LbEaOMCd0Kv880QVHzBYJdJu0FV2haJr2eDDImERKGSb4BFDn2DUdeJTVxBAZ8PPZ4PIVeAbFtOHFyEN j0IODlRQYtKzw+WUr3E3VtOVJdRWKgQzc8HVDuMqP1 KiJiHbQzBJT2JKFtQB2qUADLMi7+DOncxLGacIgdZVNMPcW3HRB0UKmsXRMRKp3I ID Date Data Source [id number] 05/17/2020 12:45:22 PM EDT [facility] Name Value Range Interpretation Code Description Data Lydia rce(s) Supporting Document(s) Specimen source [Identifier] of Unspecified specimen [facility] SARS-CoV-2 RNA 2018 nCoV Real-Time RT-PCR: NOT DETECTED [facility] Assay Performed [facility] Initial validation was performed by the Centers for Disease Control and Prevention (CDC) and additionally validated by the Dept. of Pathology [facility]. Negative results do not preclude SARS-CoV-2 infection and should not be used as the sole basis for patient management decisions.Additional information is available on the following FDA websites for health care providers and patients. https://www.fda.gov/media/469907/download, https://www.fda.gov/media/625098/download. Patients first test for condition [facility] Patient employed in healthcare setting [facility] Patient has symptoms related to condition [facility] When did you start to experience these symptoms [Date and time] [Phen X] [facility] Patient was hospitalized because of this condition [facility] patient was admitted to ICU for condition [facility] Patient resides in a congregate care setting [facility] status [facility] ID Date Data Source [id number] 05/16/2020 11:34:00 AM EDT [facility] Name Value Range Interpretation Code Description Data Lydia rce(s) Supporting Document(s) SARS-CoV-2 RNA [facility] This lab was ordered by [facility] and reported by [facility] Clinical Pathology Laborator. ID Date Data Source [id number] 05/02/2020 06:13:24 PM EDT [facility] LABORATORY [facility] [place], [place] [address]Rdf# Surgical Pathology ReportAccession #:[id number](s) ReceivedA: Gastric body polyp bxB: Antrum bxsClinical [...] 05/02/2020Electronically Signed Out By Asia Wyatt MD [facility] [place], [place] [address]yelRhhidzjtq component performed at [facility], Histopathology, [address] [place] [address], [address].Reported at [facility], [address] [place], [place], [address]. This report may includeimmunohistochemical or in-situ hybridization results. Testing wasdeveloped and the performance characteristics determined by [facility] as required by CLIA '88. The FDA hasdetermined that approval for specific use is not necessary for clinicaluse. The quality of Hematoxylin and Eosin stains and as applicable, forall immunohistochemical and/or special stains, including positive andnegative controls, were reviewed and considered appropriate.ICD codes K31.7CPT codesA: 49279FS: 42561E Name Value Range Interpretation Code Description Data Lydia rce(s) Supporting Document(s) ID Date Data Source [id number] 05/01/2020 08:51:38 AM EDT [facility] INFORMATIONPatient MRN Name Date of Age Gend*PT [id number] Helga Hu 1960 59 years F OPPT Location Admission Date/Time Visit ID Attending ProviderEndo [place] 05/01/20 0752 --- Doron Mabry MD([id number]) EPI ID CSN Admitting Provider [id number] Doron Mabry MD([id number])Endoscopic Esophagogastroduodenoscopy Procedure NotePatient: Helga AldrihcerMRN: [id number] Date: 05/01/2020Surgeon(s):AYDE Hannahre- operative Diagnosis:Gastroesophageal reflux disease [K21.9]Post-Op Diagnosis Codes: * Gastroesophageal reflux disease [K21.9]Procedure: 1) Esophagogastroduodenoscopy 2) Biopsy of fundic polyps and antral bx fro H. PyloriAnesthesia/Sedation: General Anesthesia (see anesthesia report).Findings: Normal esophagus, regular Z-line, multiple polyps - proximal body andfundus, normal duodenum up to Q0Orctteyny:ID Type Source Tests Collected by [facility] : [...] proximal body and fundus,normal duodenum up to L6Kragkttdpjbaedz:-Await pathology.-Follow up with me.Signature: JONH Hannahate: May 01, 2020Time: 8:50 AMCC: Doron Mabry [facility]: PCP PROVIDER REQUESTED Name Value Range Interpretation Code Description Data Lydia rce(s) Supporting Document(s) ID Date Data Source [id number] 05/01/2020 08:15:19 AM EDT [facility] INFORMATIONPatient MRN Name Date of Age Gend*PT [id number] Helga Hu 1960 59 years F OPPT Location Admission Date/Time Visit ID Attending ProviderEndo [place] 05/01/20 0752 --- Doron Mabry MD([id number]) EPI ID CSN Admitting Provider [id number] Doron Mabry MD([id number])Pre- Procedure History and Physical:The history and physical were reviewed and the patient was examined.There are no changes to the H&P.Doron Mabry MD05/01/20 8:15 AM Name Value Range Interpretation Code Description Data Lydia rce(s) Supporting Document(s) ID Date Data Source [id number] 04/27/2020 08:14:00 AM EDT [facility] Name Value Range Interpretation Code Description Data Lydia rce(s) Supporting Document(s) SARS coronavirus 2 RNA [facility] This lab was ordered by [facility] [place] [facility] and reported by [facility]. ID Date Data Source [id number] 04/28/2020 01:07:[address] [facility] Name Value Range Interpretation Code Description Data Lydia rce(s) Supporting Document(s) SARS-COV-2 ELOISA [facility] Not DetectedReference range: Not Detecte d This nucleic acid amplification test was developed and its performance characteristics determined by [employer]. Nucleic acid amplification tests include PCR and [...] result in this assay. Performed At: [facility] [id number] José Manuel Araujo MD Ph:[phone] Procedure Social History Code Duration Value Status Description Data Source(s ) Smoking 01/29/2021 12:00:00 AM EDT Never Smoker completed Never S mojimi eCW1 ([facility]) Smoking 01/29/2021 12:00:00 AM EDT Never Smoker completed Never S riccardo eCW1 ([facility]) Alcohol intake 01/18/2021 12:00:00 AM EDT Current drinker of al cohol (finding) completed Current drinker of alcohol (finding) [facility] Alcohol intake 01/08/2021 12:00:00 AM EDT Current drinker of al cohol (finding) completed Current drinker of alcohol (finding) [facility] Smoking 07/20/2020 12:00:00 AM EST Patient has never smoked co mpleted Patient has never smoked MEDENT ([facility]) Tobacco use and exposure 05/01/2020 12:00:00 AM EDT Never used co mpleted Never used [facility] Smoking 05/01/2020 12:00:00 AM EDT Never smoker completed Never [facility] Alcohol intake 05/01/2020 12:00:00 AM EDT Yes completed [facility] Smoking 05/01/2020 12:00:00 AM EDT Never smoker completed Never [facility] Vital Signs ID Date Data Source UNK Name Value Range Interpretation Code Description Data Source(s) Body weight 224 [lb_av] 224 [lb_av] eCW1 ([facility]) Body height [in_i] W1 (On license of [facility]) Body mass index (BMI) [Ratio] 38.45 kg/m2 38.45 kg/m2 [facility] ([facility]) Body weight 224.4 [lb_av] 224.4 [lb_av] W1 ([facility]) Body height [in_i] eCW1 (On license of [facility]) Body mass index (BMI) [Ratio] 38.51 kg/m2 38.51 kg/m2 W1 ([facility]) Body mass index (BMI) [Ratio] 38.1 kg/m2 38.1 k g/m2 [facility] ([facility]) Systolic blood pressure 101 mm[Hg] 101 mm[Hg] M EDENT ([facility]) Diastolic blood pressure 70 mm[Hg] 70 mm[Hg] [facility] Heart rate 85 /min 85 /min MED[facility] ([facility], [facility]) Respiratory rate 16 /min 16 /min [facility] ( [facility], [facility]) Oxygen saturation in Arterial blood by Pulse oximetry 94 % 94 % [facility] ([facility], [facility]) Body temperature 98.8 [degF] 98.8 [degF] [facility] ([facility], [facility]) Body weight 222.00 [lb_av] 222.00 [lb_av] MEDEN T ([facility], [facility]) Body height 64 [in_i] 64 [in_i] MEDENT ([facility], [facility]) 5'4" Systolic blood pressure 109 mm[Hg] 109 mm[Hg] [facility] Diastolic blood pressure 64 mm[Hg] 64 mm[Hg] [facility] Heart rate 52 /min 52 /min [facility] Body temperature 36.78 Debbi 36.78 Debbi [facility] Respiratory rate 16 /min 16 /min [facility] Oxygen saturation in Arterial blood by Pulse oximetry 98 % 98 % [facility] Body height 162.6 cm 162.6 cm [facility] Body weight 104.1 kg 104.1 kg [facility] Body mass index (BMI) [Ratio] 39.39 kg/m2 39.39 kg/m2 [facility] Systolic blood pressure 127 mm[Hg] 127 mm[Hg] [facility] Diastolic blood pressure 74 mm[Hg] 74 mm[Hg] [facility] Heart rate 66 /min 66 /min [facility] Body height 162.6 cm 162.6 cm [facility] Body weight 109.544 kg 109.544 kg [facility] Body mass index (BMI) [Ratio] 41.45 kg/m2 41.45 kg/m2 [facility] Oxygen saturation in Arterial blood by Pulse oximetry 95 % 95 % [facility] Systolic blood pressure 128 mm[Hg] 128 mm[Hg] [facility] Heart rate 73 /min 73 /min [facility] ([facility], [facility]) Oxygen saturation in Arterial blood by Pulse oximetry 99 % 99 % [facility] ([facility], [facility]) Body temperature 97.5 [degF] 97.5 [degF] [facility]) Respiratory rate 16 /min 16 /min [facility] ( [facility], [facility]) Body weight 220.00 [lb_av] 220.00 [lb_av] [facility] ([facility], [facility]) Body height 64 [in_i] 64 [in_i] [facility] ([facility], [facility]) 5'4" Body mass index (BMI) [Ratio] 37.8 kg/m2 37.8 k g/m2 [facility] ([facility], [facility]) Diastolic blood pressure 82 mm[Hg] 82 mm[Hg] [facility] ([facility], [facility]) Heart rate 63 /min 63 /min [facility] Systolic blood pressure 132 mm[Hg] 132 mm[Hg] [facility] Respiratory rate 16 /min 16 /min [facility] Oxygen saturation in Arterial blood by Pulse oximetry 98 % 98 % [facility] Diastolic blood pressure 86 mm[Hg] 86 mm[Hg] [facility] Body temperature 36.56 Debbi 36.56 Debbi [facility] Body height 162.6 cm 162.6 cm [facility] Body weight 100.245 kg 100.245 kg [facility] Body mass index (BMI) [Ratio] 37.93 kg/m2 37.93 kg/m2 [facility] Patient Treatment Plan of Care Planned Activity Planned Date Details Description Data Source (s) ondansetron (ZOFRAN-ODT) disintegrating tablet 8 mg 01/19/20 06:00:00 AM EDT [facility] Acetaminophen 325 MG Oral Tablet 01/18/2021 12:00:00 AM EDT [facility] Ascorbic Acid 60 MG / Beta Carotene 5000 UNT / Copper Sulfate 40 MG / dl-alpha tocopheryl acetate 30 UNT / Sodium Selenite 0.04 MG / Zinc Oxide 40 MG Oral Tablet 01/18/2021 12:00:00 AM EDT [facility] Vitamin B 12 0.5 MG Oral Tablet 01/18/2021 12:00:00 AM EDT [facility] 0.4 ML Enoxaparin sodium 100 MG/ML Prefilled Syringe 021 12:00:00 AM EDT [facility] Simethicone 80 MG Chewable Tablet 01/18/2021 12:00:00 AM EDT [facility] Ascorbic Acid 60 MG / Beta Carotene 5000 UNT / Copper Sulfate 40 MG / dl-alpha tocopheryl acetate 30 UNT / Sodium Selenite 0.04 MG / Zinc Oxide 40 MG Oral Tablet 01/18/2021 12:00:00 AM EDT [facility] Vitamin B 12 0.5 MG Oral Tablet 01/18/2021 12:00:00 AM EDT [facility] Ondansetron 4 MG Disintegrating Oral Tablet 01/18/2021 12:00:00 AM EDT [facility] 0.4 ML Enoxaparin sodium 100 MG/ML Prefilled Syringe 021 12:00:00 AM EDT [facility] Acetaminophen 325 MG Oral Tablet 01/18/2021 12:00:00 AM EDT [facility] Omeprazole 20 MG Delayed Release Oral Capsule 01/18/2021 12:00:00 A M EDT [facility] normal saline flush 0.9 % injection 3 mL 01/17/2021 10:00:00 PM EDT [facility] metoclopramide (REGLAN) injection 10 mg 01/17/2021 04:55:19 PM EDT [facility] Prochlorperazine 10 MG Oral Tablet 01/17/2021 04:55:18 PM EDT [facility] Promethazine Hydrochloride 25 MG Oral Tablet 01/17/2021 04:55:18 PM EDT [facility] Oxycodone Hydrochloride 5 MG Oral Tablet 01/17/2021 04:55:18 PM EDT [facility] enalaprilat (VASOTEC) injection 1.25 mg 01/17/2021 04:55:17 PM EDT [facility] 0.4 ML Enoxaparin sodium 100 MG/ML Prefilled Syringe 021 04:55:17 PM EDT [facility] Clonidine Hydrochloride 0.1 MG Oral Tablet 01/17/2021 04:55:16 PM E DT [facility] Ondansetron 4 MG Disintegrating Oral Tablet [facility] Omeprazole 20 MG Delayed Release Oral Capsule [facility]
[2021-06-24] MEDS ORDERED: VENTAER INH (16:30)
[2021-06-24] MEDS ORDERED: BACT800T5 PO (16:30)
== END 2021-06-24 16:44 | disposition home or self-care (01) ==
LOC: M ED 10:25
DX: K80.20 Calculus of gallbladder without cholecystitis without obstruction (principal); N39.0 Urinary tract infection, site not specified; J98.11 Atelectasis; K21.9 Gastro-esophageal reflux disease without esophagitis; Z98.84 Bariatric surgery status; Z79.899 Other long term (current) drug therapy
CPT/HCPCS: 36415; 74177; 76705; 80048; 80076; 81001; 83690; 85025; 87088; 87186; 99283; Q9967

== ENCOUNTER → 2022-03-11 | Outpatient (REF) | payer BC ==
[~2022-03-11] MED LIST changes: +BACT800T5 PO; +VENTAER INH
[2022-03-11 17:32] LABS: HEMATOCRIT 36.4 % (36.0-47.0)
[2022-03-11 17:33] LABS: BASO % 0.5 % (0.0-1.0); EOS # 0.1 10^3/uL (0.0-0.5); EOS % 2.2 % (0.0-3.0); HEMOGLOBIN 12.1 g/dl (12.0-15.5); LYMPH # 1.7 10^3/uL (1.5-5.0); LYMPH % 26.2 % (24.0-44.0); MEAN CORPUSCULAR HGB CONC 32.7 g/dl (32.0-36.5); MEAN CORPUSCULAR VOLUME 103.9 fl (80.0-96.0); MONO # 0.5 10^3/uL (0.0-0.8); MONO % 7.8 % (2.0-8.0); NEUTROPHILS % 63.1 % (36.0-66.0); PLATELET COUNT, AUTOMATED 211 10^3/uL (150-450); RED BLOOD COUNT 3.56 10^6/uL (4.00-5.40); WHITE BLOOD COUNT 6.4 10^3/uL (4.0-10.0)
[2022-03-11 19:42] LABS: HEMOGLOBIN A1c 5.1 %
[2022-03-11 21:42] LABS: ALBUMIN 3.6 GM/DL (3.2-5.2); ALT/SGPT 23 U/L (12-78); BILIRUBIN,TOTAL 0.5 MG/DL (0.2-1.0); BLOOD UREA NITROGEN 13 MG/DL (7-18); CALCIUM LEVEL 9.1 MG/DL (8.5-10.1); CARBON DIOXIDE LEVEL 29 MEQ/L (21-32); CHLORIDE LEVEL 106 MEQ/L (98-107); CREATININE FOR GFR 0.84 MG/DL (0.55-1.30); FERRITIN 81 NG/ML (8-252); GLOMERULAR FILTRATION RATE > 60.0 (>51); GLUCOSE, FASTING 92 MG/DL (70-100); IRON (FE) 114 UG/DL (50-170); MAGNESIUM LEVEL 2.1 MG/DL (1.8-2.4); PERCENT SATURATION 48.1 % (13.2-45.0); PHOSPHORUS LEVEL 3.6 MG/DL (2.5-4.9); POTASSIUM SERUM 4.7 MEQ/L (3.5-5.1); SODIUM LEVEL 139 MEQ/L (136-145); TOTAL IRON BINDING CAPACITY 237 UG/DL (250-450); TOTAL PROTEIN 6.7 GM/DL (6.4-8.2)
[2022-03-11 22:37] LABS: TOTAL 25(OH) VITAMIN D 58.3 NG/ML (30.0-100.0)
[2022-03-11 22:41] LABS: VITAMIN B12 LEVEL 620 PG/ML (247-911)
== END ==
LOC: M LABDRAWC 16:44
PROVIDERS: ATTEND Physician Assistant Surgical
DX: K91.2 Postsurgical malabsorption, not elsewhere classified (principal); Z98.84 Bariatric surgery status; E55.9 Vitamin D deficiency, unspecified; Z86.39 Personal history of other endocrine, nutritional and metabolic disease

== ENCOUNTER → 2024-04-05 | Outpatient (REF) | payer BC ==
[~2024-04-05] MED LIST changes: -DOXY-350 PO; +DOXY-440 PO
[2024-04-05 18:20] LABS: ESTRADIOL < 19.0 PG/ML; FOLATE > 24.0 NG/ML (>5.4); FOLLICLE STIMULATING HORMONE 88.4 mIU/ML; PROGESTERONE 1.15 NG/ML; VITAMIN B12 LEVEL 493 PG/ML (211-911)
[2024-04-10 15:48] LABS: TESTOSTERONE FREE (DIRECT) 4.6 pg/mL (0.1-6.4)
== END ==
LOC: M LABDRAWC 16:44
PROVIDERS: ATTEND Internal Medicine
DX: N95.9 Unspecified menopausal and perimenopausal disorder (principal); D75.89 Other specified diseases of blood and blood-forming organs

== ENCOUNTER 2025-05-27 11:12 | Emergency (ER) | payer BC ==
[~2025-05-27] VITALS: Ht 162.6 cm; Wt 78.1 kg
[2025-05-27] MEDS ORDERED: ISOVUE-370 76% 100 ML VIAL As Ordered ONE (11:51)
[2025-05-27 12:06] LABS: BASO # 0.0 10^3/uL (0.0-0.2); BASO % 0.5 % (0.0-1.0); EOS # 0.1 10^3/uL (0.0-0.5); EOS % 1.4 % (0.0-3.0); LYMPH # 1.6 10^3/uL (1.5-5.0); LYMPH % 36.0 % (24.0-44.0); MONO # 0.4 10^3/uL (0.0-0.8); MONO % 9.9 % (2.0-8.0); NEUTROPHILS # 2.3 10^3/uL (1.5-8.5); NEUTROPHILS % 52.0 % (36.0-66.0); PLATELET COUNT, AUTOMATED 197 10^3/uL (150-450)
[2025-05-27 12:19] LABS: INR 0.97
[2025-05-27 12:27] LABS: ALT/SGPT 22.0 U/L (7.0-40); AST/SGOT 22.0 U/L (<34); CALCIUM LEVEL 9.8 MG/DL (8.3-10.6); CARBON DIOXIDE LEVEL 28.0 MMOL/L (20-31); CHLORIDE LEVEL 104.0 MMOL/L (98-107); CREATININE FOR GFR 0.76 MG/DL (0.55-1.30); GLOMERULAR FILTRATION RATE 88.5 (>45); POTASSIUM SERUM 4.1 MMOL/L (3.5-5.1); SODIUM LEVEL 143.0 MMOL/L (136-145)
[2025-05-27 12:29] LABS: FREE T4 1.19 NG/DL (0.89-1.76)
[2025-05-27] MEDS: ASPIRIN 81 MG CHEWABLE TABLET PO ONE (14:22)
[2025-05-27 14:44] VITALS: BP 128/86; TEMP 98; O2SAT 100
== END 2025-05-27 14:48 | disposition short-term general hospital (02) ==
LOC: M ED 11:12
DX: G45.9 Transient cerebral ischemic attack, unspecified (principal); K21.9 Gastro-esophageal reflux disease without esophagitis; R00.1 Bradycardia, unspecified; Z79.51 Long term (current) use of inhaled steroids; Z79.899 Other long term (current) drug therapy; Z79.810 Long term (current) use of selective estrogen receptor modulators (SERMs)
CPT/HCPCS: 36415; 70450; 70496; 70498; 71045; 80047; 80048; 80076; 84439; 84443; 85025; 85610; 85730; 86850; 86900; 86901; 93005; 93041; 94760; 99285; Q9967